=== PATIENT | female | born 1980 | race Two or more races ===

== ENCOUNTER 2020-01-18 15:07 | Outpatient (REF) | payer MEDICAID, SELFPAY | END 2020-01-18 15:08 | disposition home or self-care (01) | LOC: HO.LAB 15:07 | PROVIDERS: Visit Provider Internal Medicine | DX: Z20.828 Contact with and (suspected) exposure to other viral communicable diseases (principal) | CPT/HCPCS: C9803; U0003 ==

== ENCOUNTER 2020-01-27 14:02 | Emergency (ER) | payer MEDICAID, SELFPAY ==
--- NOTE | 2020-01-27 14:51 | XR_ITS ---
EXAMINATION: XR CHEST CLINICAL INFORMATION: Chest pain COMPARISON: Chest x-ray 06/12/2014 TECHNIQUE: Frontal view of the chest was obtained. FINDINGS: Cardiac silhouette is normal in size. Lungs are well aerated. There is no lobar consolidation. No pleural effusion or pneumothorax. Surgical clips in the right upper quadrant suggesting prior cholecystectomy. XR/XR chest 1V IMPRESSION: No acute pulmonary pathology.
[2020-01-27 14:52] VITALS: BP 123/73; PULSE 84; RESP 18; TEMP 36.9; O2SAT 98; BMI 36.6
--- NOTE | 2020-01-27 14:52 | ECG_ITS ---
Test Reason : CHEST PAIN Blood Pressure : / mmHG Vent. Rate : 073 BPM Atrial Rate : 073 BPM P-R Int : 136 ms QRS Dur : 096 ms QT Int : 396 ms P-R-T Axes : 032 060 046 degrees QTc Int : 436 ms Normal sinus rhythm Nonspecific ST abnormality Abnormal ECG When compared with ECG of 15-NOV-2018 20:45, No significant change was found Referred By: Kylie Choudhary Electronically Signed By:LIZA MARCOS MD
--- NOTE | 2020-01-27 14:54 | ED.CHESTPAIN ---
HPI - Chest Pain General Chief Complaint: General Medical Stated Complaint: CHEST PAIN Time Seen by Provider: 01/27/20 14:51 Source: patient and [employer] Mode of arrival: ambulatory Limitations: no limitations History of Present Illness HPI narrative: 39-year-old female presented with left-sided chest pain, pain started 2 days ago, described as dull aching pain localized to the left side of her chest with no radiation, describe it has moderate 5/10, nothing worsening the the pain, nothing improving the pain, pain is associated with shortness of breath. Patient was tested positive for COVID-19 A his ago. Related Data Previous Rx's Medication Instructions Recorded ibuprofen 800 mg PO Q8H PRN #30 tab 01/27/20 Allergies Allergy/AdvReac Type Severity Reaction Status Date / Time No Known Allergies Allergy Unverified 11/30/19 17:20 Review of Systems Review of Systems: All other systems are reviewed and are negative Constitutional: Reports as per HPI and Reports no additional constitutional complaints Eyes: Reports as per HPI and Reports no additional eye complaints Reports system reviewed and no additional complaints, except as documented Cardiovascular: Reports as per HPI and Reports no additional cardiovascular complaints Respiratory: Reports as per HPI and Reports no additional respiratory complaints Gastrointestinal: Reports as per HPI and Reports no additional gastrointestinal complaints Genitourinary: Reports no additional female genitourinary complaints Musculoskeletal: Reports no additional musculoskeletal complaints Skin/Breast: Reports system reviewed and no additional complaints, except as docu Psychiatric: Reports no additional psychiatric complaints Endocrine: Reports no additional endocrine complaints Hematologic/Lymphatic: Reports no additional hematologic/lymphatic complaints Allergic/Immunologic: Reports no additional allergic/immunologic complaints Reports system reviewed and no additional complaints, except as documented and Reports Abnormal speech present [facility] Past Medical History Medical History No known health problems Social History Social History Alcohol intake: never Smoked in Last 30 Days: No Use of substances other than those prescribed or required for medical reasons: No Advance Directives: No Advance Directives Information Provided: Yes Physical Exam Vital Signs: Vital Signs: Last Vital Signs Temp 98.5 F 01/27/20 14:52 Pulse 84 01/27/20 14:52 Resp 18 01/27/20 14:52 BP 123/73 01/27/20 14:52 Pulse Ox 98 01/27/20 14:52 Body Mass Index 36.6 Vital signs have been reviewed as normal and appeared to be correct. Blood pressure normal. Heart rate normal. Respiration rate normal. Temperature normal. Oxygen saturation normal. Appearance: Alert. Oriented X3. No acute distress. Head: Normal external exam. Normocephalic. Atraumatic. No Banks signs noted. No raccoon eyes noted Eyes: PERRLA. EOMI. Conjunctiva and sclera normal. Eyelids normal. ENT: EAC normal. TM's Normal. Pharynx normal. Uvula midline. Moist mucous membranes. No trismus noted. No drooling noted. No muffled voice noted. Neck: Normal inspection. Neck supple. FROM. No adenopathy. Thyroid Normal. No meningeal signs. No neck mass noted. CVS: Normal heart rate and rhythm. Heart sound normal. No murmurs noted. Pulses normal throughout. Respiratory: No respiratory distress. Painless inspiration. Breath sounds normal. No wheezes/rales/rhonchi noted. Chest nontender. No accessory muscle usage noted or decreased air movement noted. Abdomen: Soft and nontender. Bowel sounds normal in all 4 quadrants. No distention noted. No organomegaly noted. No visible injury noted. Back: No CVA tenderness. Full range of motion noted. Skin: Skin warm and dry. Normal skin color. Normal skin turgor. No rashes/lesions/lacerations noted. Extremities: No lower extremity edema. Extremities exhibit normal range of motion. Extremities nontender. Neuro: Oriented X 3. No motor deficit. No sensory deficit. Reflexes normal. MDM - Chest Pain MDM Narrative Medical decision making narrative: Assessment and plan. This is a 39-year-old female with low risk for coronary artery disease, has a normal EKG and a negative troponin with chest pain for more than 2 days, patient recently diagnosed with COVID pneumonia, patient had slight elevation of the D-dimer which is consistent with COVID infection however patient remained her O2 sat/heart rate/respiratory rate within normal, otherwise patient has no risk factor for PE/DVT , PE is very unlikely in this situation therefore I will not expose the patient to unneeded ionized radiation and doing CT of the chest. Will reassess the patient and sent home. Lab Data Attestation: I reviewed the patient's lab results. Result diagrams: 01/27/20 15:07 01/27/20 15:07 Labs: Lab Results 01/27/20 01/27/20 01/27/20 Range/Units 15:07 15:07 15:07 WBC 8.4 (4.8-10.8) X10*3/uL RBC 4.67 (4.20-5.50) X10*6/uL Hgb 13.4 (12.0-16.0) g/dl Hct 41.5 (37-47) % MCV 88.9 (80-98) fL MCH 28.7 (27.0-33.0) pg MCHC 32.3 (31.0-35.0) g/dl RDW 12.4 (11.0-16.0) % Plt Count 268 (160-400) X10*3/uL MPV 9.8 (9.4-12.3) fL Immature Gran % (Auto) 0.2 (0.0-0.4) % Neut % (Auto) 61.4 (45-73) % Lymph % (Auto) 30.1 (20-40) % [place] % (Auto) 6.8 (2-11) % Eos % (Auto) 1.1 (0-4) % Baso % (Auto) 0.4 (0-2) % Lymph # (Auto) 2.5 (1.2-4.9) X10*3/uL [place] # (Auto) 0.6 (0.1-1.2) X10*3/uL Eos # (Auto) 0.1 (0.0-0.4) X10*3/uL Baso # (Auto) 0.0 (0.0-0.2) X10*3/uL Abs Immat Gran (auto) 0.02 (0.00-0.03) X10*3/uL Absolute Neuts (auto) 5.2 (2.0-8.3) X10*3/uL Absolute Nucleated RBC 0.000 (0.0-0.012) X10*3/uL Nucleated RBC % (auto) 0.0 (0.0-0.2) /100WBC D-Dimer 270 NG/ML Sodium 141 (135-145) mmol/L Potassium 3.8 (3.3-5.1) mmol/l Chloride 105 (96-108) mmol/L Carbon Dioxide 29 (22-29) mmol/L Anion Gap 11 L (12-20) BUN 15 (9-16) mg/dL Creatinine 0.73 (0.5-1.4) mg/dL Estim Creat Clear Calc 106.2 Estimated GFR > 60 Random Glucose 77 (60-115) mg/dL Calcium 8.7 (8.4-10.2) mg/dL Troponin I High Sens (<3.5-17.0) ng/L B-Natriuretic Peptide (<100) pg/mL Lipase 20 (8-78) U/L 01/27/20 Range/Units 15:07 WBC (4.8-10.8) X10*3/uL RBC (4.20-5.50) X10*6/uL Hgb (12.0-16.0) g/dl Hct (37-47) % MCV (80-98) fL MCH (27.0-33.0) pg MCHC (31.0-35.0) g/dl RDW (11.0-16.0) % Plt Count (160-400) X10*3/uL MPV (9.4-12.3) fL Immature Gran % (Auto) (0.0-0.4) % Neut % (Auto) (45-73) % Lymph % (Auto) (20-40) % [place] % (Auto) (2-11) % Eos % (Auto) (0-4) % Baso % (Auto) (0-2) % Lymph # (Auto) (1.2-4.9) X10*3/uL [place] # (Auto) (0.1-1.2) X10*3/uL Eos # (Auto) (0.0-0.4) X10*3/uL Baso # (Auto) (0.0-0.2) X10*3/uL Abs Immat Gran (auto) (0.00-0.03) X10*3/uL Absolute Neuts (auto) (2.0-8.3) X10*3/uL Absolute Nucleated RBC (0.0-0.012) X10*3/uL Nucleated RBC % (auto) (0.0-0.2) /100WBC D-Dimer NG/ML Sodium (135-145) mmol/L Potassium (3.3-5.1) mmol/l Chloride (96-108) mmol/L Carbon Dioxide (22-29) mmol/L Anion Gap (12-20) BUN (9-16) mg/dL Creatinine (0.5-1.4) mg/dL Estim Creat Clear Calc Estimated GFR Random Glucose (60-115) mg/dL Calcium (8.4-10.2) mg/dL Troponin I High Sens < 3.5 (<3.5-17.0) ng/L B-Natriuretic Peptide < 10 (<100) pg/mL Lipase (8-78) U/L Imaging Data Chest x-ray: Radiologist's impression: No acute pulmonary pathology. ECG Data ECG #1: Interpretation: Normal sinus rhythm at 73 beats per minutes, normal axis, normal intervals, no ST-T changes. Discharge Plan Discharge Clinical Impression: Chest pain Qualifiers: Chest pain type: unspecified Qualified Code(s): R07.9 - Chest pain, unspecified Patient Disposition: Home, Self-Care Instructions: Chest Pain (ED) Prescriptions: New ibuprofen 800 mg tablet 800 mg PO Q8H PRN (Reason: pain) Qty: 30 RF: 0 Referrals: Physician,Unknown [Primary Care Provider] - 2 days
[2020-01-27] MEDS: 0.9 % Sodium Chloride 500 ML 1000 ML IV (15:08)
[2020-01-27 15:14] LABS: MANUAL DIFF FLAG NO
[2020-01-27 15:16] LABS: Basophils Percent Auto 0.4 % (0-2); Eosinophils Absolute Auto 0.1 X10*3/uL (0.0-0.4); Eosinophils Percent Auto 1.1 % (0-4); Hematocrit 41.5 % (37-47); Hemoglobin 13.4 g/dl (12.0-16.0); Imm Gran Abs Auto 0.02 X10*3/uL (0.00-0.03); Imm Gran Pct Auto 0.2 % (0.0-0.4); Lymphocytes Absolute Auto 2.5 X10*3/uL (1.2-4.9); Lymphocytes Percent Auto 30.1 % (20-40); Mean Corpuscular HGB Conc 32.3 g/dl (31.0-35.0); Mean Corpuscular Hemoglobin 28.7 pg (27.0-33.0); Mean Corpuscular Volume 88.9 fL (80-98); Mean Platelet Volume 9.8 fL (9.4-12.3); Monocytes Absolute Auto 0.6 X10*3/uL (0.1-1.2); Monocytes Percent Auto 6.8 % (2-11); Neutrophils Absolute Auto 5.2 X10*3/uL (2.0-8.3); Neutrophils Percent Auto 61.4 % (45-73); Platelet Count 268 X10*3/uL (160-400); Red Blood Count 4.67 X10*6/uL (4.20-5.50); Red Cell Distribution Width 12.4 % (11.0-16.0); White Blood Count 8.4 X10*3/uL (4.8-10.8)
[2020-01-27 15:37] LABS: Anion Gap 11 (12-20); Blood Urea Nitrogen 15 mg/dL (9-16); Calcium 8.7 mg/dL (8.4-10.2); Carbon Dioxide 29 mmol/L (22-29); Chloride 105 mmol/L (96-108); Creatinine Clr Calc Pharmacy 106.2; Estimated Glomerular Filt Rate > 60; Glucose Random 77 mg/dL (60-115); Lipase 20 U/L (8-78); Potassium 3.8 mmol/l (3.3-5.1); Sodium 141 mmol/L (135-145)
[2020-01-27 15:39] LABS: D Dimer 270 NG/ML
[2020-01-27 15:43] LABS: B Type Natriuretic Peptide < 10 pg/mL (<100); Troponin-I High Sensitivity < 3.5 ng/L (<3.5-17.0)
== END 2020-01-27 16:22 | disposition home or self-care (01) ==
PROVIDERS: Emergency Provider Emergency Medicine
DX: R07.9 Chest pain, unspecified (principal)
CPT/HCPCS: 36415; 71045; 80048; 83690; 83880; 84484; 85025; 85379; 93005; 99284

== ENCOUNTER 2020-12-25 15:36 | Emergency (ER) | payer MEDICAID, SELFPAY ==
[2020-12-25 15:57] VITALS: BP 106/74; PULSE 81; RESP 18; TEMP 36.9; O2SAT 99; BMI 38.9
--- NOTE | 2020-12-25 16:54 | ED.ABDPAIN ---
HPI - Abdominal Pain General Chief Complaint: Abdominal Pain Stated Complaint: abd pain Time Seen by Provider: 12/25/20 16:54 Source: family Mode of arrival: ambulatory Limitations: language barrier History of Present Illness HPI narrative: abdominal pain started this morning. Epigastric with diarrhea, no vomiting no fever. Patient with diarrhea 10 times all water. Patient denies food poisoning, sick exposures. MD elicited complaint: abdominal pain Pain Consistency: intermittent Location: epigastric Severity: moderate Quality: cramping Associated symptoms: diarrhea Related Data Previous Rx's Medication Instructions Recorded ibuprofen 800 mg tablet 800 mg PO Q8H PRN #30 tab 01/27/20 aodafknlf-zeymco-pkeozqja-scop 5 ml PO BID PRN #480 ml 12/25/20 16.2 mg-0.1037 mg-0.0194 mg/5 mL elixir () Allergies Allergy/AdvReac Type Severity Reaction Status Date / Time No Known Allergies Allergy Verified 12/25/20 15:57 Review of Systems Constitutional: Reports no additional constitutional complaints Eyes: Reports no additional eye complaints Denies dizziness Cardiovascular: Reports no additional cardiovascular complaints Respiratory: Reports as per HPI Gastrointestinal: Reports no additional gastrointestinal complaints Genitourinary: Reports no additional female genitourinary complaints Musculoskeletal: Reports no additional musculoskeletal complaints Skin/Breast: Denies rash Reports system reviewed and no additional complaints, except as documented, Denies dizziness and Denies Sensory deficit (Neuro) Psychiatric: Denies anxiety Physical Exam Vital Signs: Vital Signs: Last Vital Signs Temp 98.5 F 12/25/20 15:57 Pulse 81 12/25/20 15:57 Resp 18 12/25/20 15:57 BP 106/74 12/25/20 15:57 Pulse Ox 99 12/25/20 15:57 Body Mass Index 38.9 Const: General: healthy appearing Nutritional Appearance: average body habitus Orientation/consciousness: oriented to person and patient oriented x3 Limitations: no limitations HENMT: Head: Yes normal to inspection Ears: external ears normal General nose exam: Normal external nose present Mouth: Normal oral and palatal mucosa present and oropharynx normal Throat: Yes posterior oropharynx normal Eyes: General: appearance normal, both eyes and all related structures Neck: Other: supple Neck: Yes normal visual inspection Chest: Chest palpation & inspection: normal inspection of the chest Resp: Auscultation: clear to auscultation bilaterally Cardio: Jugular venous distension: no JVD Rate: regular rate Rhythm: regular rhythm Heart sounds: S1 normal heart sound present and S2 normal heart sound present GI: Other: abdomen is soft but diffusely tender Auscultation: normal bowel sounds : General: Yes no CVA tenderness Back/Spine/Pelvis: Back: no CVA tenderness Skin: General skin exam: no rashes or lesions noted Neuro: General: oriented to person and patient oriented x3 Cranial nerves: Yes CN's II-XII intact bilaterally Motor exam (neuro): 5/5 motor strength present throughout Sensory Exam: No Sensory deficit (Neuro) Extrem: General: Yes normal to inspection Psych: Appearance: grossly normal Course Reevaluation(s) Reevaluation #1: despite elevated WBC abdomen is soft and nonfocal. Improved with fluids and . Impression is diarrhea and enteritis. Will dc on . Time: 18:46 MDM - Abdominal Pain Lab Data Result diagrams: 12/25/20 17:46 12/25/20 17:46 Labs: Lab Results 12/25/20 12/25/20 Range/Units 17:46 17:46 WBC 13.7 H (4.8-10.8) X10*3/uL RBC 5.01 (4.20-5.50) X10*6/uL Hgb 14.5 (12.0-16.0) g/dl Hct 44.2 (37-47) % MCV 88.2 (80-98) fL MCH 28.9 (27.0-33.0) pg MCHC 32.8 (31.0-35.0) g/dl RDW 12.4 (11.0-16.0) % Plt Count 316 (160-400) X10*3/uL MPV 9.6 (9.4-12.3) fL Immature Gran % (Auto) 0.4 (0.0-0.4) % Neut % (Auto) 72.1 (45-73) % Lymph % (Auto) 21.1 (20-40) % [place] % (Auto) 5.4 (2-11) % Eos % (Auto) 0.7 (0-4) % Baso % (Auto) 0.3 (0-2) % Lymph # (Auto) 2.9 (1.2-4.9) X10*3/uL [place] # (Auto) 0.7 (0.1-1.2) X10*3/uL Eos # (Auto) 0.1 (0.0-0.4) X10*3/uL Baso # (Auto) 0.0 (0.0-0.2) X10*3/uL Abs Immat Gran (auto) 0.06 H (0.00-0.03) X10*3/uL Absolute Neuts (auto) 9.9 H (2.0-8.3) X10*3/uL Absolute Nucleated RBC 0.000 (0.0-0.012) X10*3/uL Nucleated RBC % (auto) 0.0 (0.0-0.2) /100WBC Sodium 137 (135-145) mmol/L Potassium 4.4 (3.3-5.1) mmol/L Chloride 104 (96-108) mmol/L Carbon Dioxide 27 (22-29) mmol/L Anion Gap 10 L (12-20) BUN 8 L (9-16) mg/dL Creatinine 0.70 (0.5-1.4) mg/dL Estim Creat Clear Calc 113.5 Estimated GFR > 60 Random Glucose 80 (60-115) mg/dL Calcium 9.7 D (8.4-10.2) mg/dL Total Bilirubin 0.3 (0.0-1.0) mg/dL Direct Bilirubin 0.2 (0.0-0.5) mg/dL AST 16 (5-31) U/L ALT 13 (0-31) U/L Alkaline Phosphatase 117 (39-117) U/L Total Protein 8.2 H (6.5-8.0) g/dL Albumin 4.3 (3.5-5.0) g/dL Lipase 11 (8-78) U/L Discharge Plan Discharge Clinical Impression: Enteritis Diarrhea Qualifiers: Diarrhea type: unspecified type Qualified Code(s): R19.7 - Diarrhea, unspecified Patient Disposition: Home, Self-Care Instructions: Acute Diarrhea (ED), Enteritis (ED) Prescriptions: New yeqwumgza-mpdbed-ofqczvzz-scop [] 16.2-0.1037 -0.0194 mg/5 mL elixir 5 ml PO BID PRN (Reason: spasms) Qty: 480 RF: 0 No Action ibuprofen 800 mg tablet 800 mg PO Q8H PRN (Reason: pain) Qty: 30 RF: 0 Referrals: [place],[facility] [Primary Care Provider] - 5 days REPLACED BY [facility] Past Medical History Medical History No known health problems Social History Social History Alcohol intake: never Advance Directives: No Advance Directives Information Provided: Yes Patient : No
[2020-12-25] MEDS: PHENobarb/Hyoscy/Atropine/Scop 10 ML ELIXIR PO (17:50)
[2020-12-25] MEDS: 0.9 % Sodium Chloride 1,000 ML 999 ML IVCONT (17:51)
[2020-12-25 17:52] LABS: MANUAL DIFF FLAG NO
[2020-12-25 17:54] LABS: Basophils Percent Auto 0.3 % (0-2); Eosinophils Absolute Auto 0.1 X10*3/uL (0.0-0.4); Eosinophils Percent Auto 0.7 % (0-4); Hematocrit 44.2 % (37-47); Hemoglobin 14.5 g/dl (12.0-16.0); Imm Gran Abs Auto 0.06 X10*3/uL (0.00-0.03); Imm Gran Pct Auto 0.4 % (0.0-0.4); Lymphocytes Absolute Auto 2.9 X10*3/uL (1.2-4.9); Lymphocytes Percent Auto 21.1 % (20-40); Mean Corpuscular HGB Conc 32.8 g/dl (31.0-35.0); Mean Corpuscular Hemoglobin 28.9 pg (27.0-33.0); Mean Corpuscular Volume 88.2 fL (80-98); Mean Platelet Volume 9.6 fL (9.4-12.3); Monocytes Absolute Auto 0.7 X10*3/uL (0.1-1.2); Monocytes Percent Auto 5.4 % (2-11); Neutrophils Absolute Auto 9.9 X10*3/uL (2.0-8.3); Neutrophils Percent Auto 72.1 % (45-73); Platelet Count 316 X10*3/uL (160-400); Red Blood Count 5.01 X10*6/uL (4.20-5.50); Red Cell Distribution Width 12.4 % (11.0-16.0); White Blood Count 13.7 X10*3/uL (4.8-10.8)
[2020-12-25 18:09] LABS: Alanine Aminotransferase 13 U/L (0-31); Albumin Level 4.3 g/dL (3.5-5.0); Alkaline Phosphatase 117 U/L (39-117); Anion Gap 10 (12-20); Aspartate Amino Transferase 16 U/L (5-31); Bilirubin Direct 0.2 mg/dL (0.0-0.5); Bilirubin Total 0.3 mg/dL (0.0-1.0); Blood Urea Nitrogen 8 mg/dL (9-16); Calcium 9.7 mg/dL (8.4-10.2); Carbon Dioxide 27 mmol/L (22-29); Chloride 104 mmol/L (96-108); Creatinine Clr Calc Pharmacy 113.5; Estimated Glomerular Filt Rate > 60; Glucose Random 80 mg/dL (60-115); Lipase 11 U/L (8-78); Potassium 4.4 mmol/L (3.3-5.1); Sodium 137 mmol/L (135-145); Total Protein 8.2 g/dL (6.5-8.0)
== END 2020-12-25 19:08 | disposition home or self-care (01) ==
PROVIDERS: Emergency Provider Emergency Medicine
DX: K52.9 Noninfective gastroenteritis and colitis, unspecified (principal)
CPT/HCPCS: 36415; 80048; 80076; 83690; 85025; 96360; 96361; 99283; 99284

== ENCOUNTER 2021-10-23 15:44 | Outpatient (REF) | payer MEDICAID, SELFPAY ==
--- NOTE | ~2021-10-23 | XR_ITS ---
EXAMINATION: XR HAND, LEFT CLINICAL INFORMATION: Status post injury. Pain in left fingers. COMPARISON: None TECHNIQUE: PA, lateral, and oblique views of the left hand. FINDINGS: There is mild loss of PIP and DIP joint spaces of all digits with mild periarticular spurring at the DIP joint of the 5th digit. The MCP, CMCP and intercarpal joint spaces are maintained normal. No visible acute fracture or dislocation. The soft tissues are normal. 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
== END 2021-10-23 15:45 | disposition home or self-care (01) ==
LOC: HO.XRAY 15:44
PROVIDERS: PCP Nurse Practitioner; Visit Provider Nurse Practitioner
DX: M79.645 Pain in left finger(s) (principal)
CPT/HCPCS: 73130

== ENCOUNTER 2022-04-04 17:40 | Emergency (ER) | payer MEDICAID, SELFPAY ==
--- NOTE | ~2022-04-04 | XR_ITS ---
EXAMINATION: XR CHEST CLINICAL INFORMATION: Chest pain COMPARISON: 01/27/2020 TECHNIQUE: Frontal view of the chest was obtained. FINDINGS: No significant abnormality is noted involving the heart, lungs, mediastinum, bony thorax or soft tissues. XR/XR chest 1V IMPRESSION: Unremarkable examination.
[2022-04-04 18:15] VITALS: BP 122/65; PULSE 77; RESP 18; TEMP 36.9; O2SAT 100; BMI 38.4
--- NOTE | 2022-04-04 18:20 | ECG_ITS ---
Test Reason : COVID POSITIVE Blood Pressure : / mmHG Vent. Rate : 077 BPM Atrial Rate : 077 BPM P-R Int : 128 ms QRS Dur : 086 ms QT Int : 388 ms P-R-T Axes : 068 062 057 degrees QTc Int : 439 ms Normal sinus rhythm with sinus arrhythmia Normal ECG When compared with ECG of 27-JAN-2020 15:26, No significant change was found Referred By: Generic ED Physician Electronically Signed By:CAMPOS SIMS MD
[2022-04-04 20:24] LABS: Influenza A PCR NEGATIVE (Negative); Influenza B PCR NEGATIVE (Negative); Resp Syncy Virus RNA Qual PCR NEGATIVE (Negative); SARS COV2 PCR INHOUSE POSITIVE (Negative)
--- NOTE | 2022-04-04 20:31 | ED.GENADULT ---
HPI - General Adult General Chief complaint: Upper Respiratory Symptoms Stated complaint: chest pain.sore throat Time Seen by Provider: 04/04/22 20:18 Source: patient Mode of arrival: ambulatory Limitations: no limitations History of Present Illness HPI narrative: Patient already been vaccinated against COVID comes up for 2 days of cold symptoms body aches low-grade fever check COVID at home which was positive on arrival patient saturating 100% room air afebrile Related Data Previous Rx's Medication Instructions Recorded ibuprofen 800 mg tablet 800 mg PO Q8H PRN pain #30 tabs 01/27/20 pzystiyaq-tcbeod-dqgwjfwq-scop 5 ml PO BID PRN spasms #480 mL 12/25/20 16.2 mg-0.1037 mg-0.0194 mg/5 mL elixir () benzonatate 200 mg capsule 200 mg PO TID PRN cough #30 caps 04/04/22 ibuprofen 600 mg tablet 600 mg PO Q6H PRN fever or pain 04/04/22 #30 tabs Allergies Allergy/AdvReac Type Severity Reaction Status Date / Time No Known Allergies Allergy Verified 12/25/20 15:57 Review of Systems Review of Systems: Yes all other systems are reviewed and are negative PMFSH Past Medical History Medical History No known health problems Social History Social History Alcohol intake: never Advance Directives: No Advance Directives Information Provided: No Physical Exam ED Vital Signs: Vital Signs - 24 hr 04/04/22 18:15 Temperature 98.4 F Pulse Rate 77 Respiratory Rate 18 Blood Pressure 122/65 Pulse Oximetry 100 Oxygen Delivery Method Room Air BMI result Body Mass Index 38.4 Appearance: Alert. Oriented X3. No acute distress. ENT: Pharynx normal. Oral Mucosa moist Neck: Normal inspection. Neck supple. CVS: Normal heart rate and rhythm. Pulses normal. Respiratory: No respiratory distress. Equal air entry bilateral, no wheezing/rales/rhonchi Skin: Skin warm and dry. Normal skin color. Normal skin turgor. Extremities: No lower extremity edema. Neuro: Oriented X 3. Medications Administered Discontinued Medications Generic Name Dose Route Start Last Admin Trade Name Freq PRN Reason Stop Dose Admin Benzonatate 200 mg 04/04/22 20:44 04/04/22 21:07 Benzonatate 100 Mg Capsule PO 04/04/22 20:45 200 mg ONCE ONE Administration Ibuprofen 600 mg 04/04/22 20:44 04/04/22 21:07 Ibuprofen 600 Mg Tablet PO 04/04/22 20:45 600 mg ONCE ONE Administration Medical Decision Making Medical Decision Making MDM Narrative: Patient with COVID positive chest x-ray negative saturating 100% on room air discharged home on tessalon Lab Data [facility] Lab Attestation statement: I reviewed the patient's lab results. Labs: Lab Results 04/04/22 Range/Units 19:29 Influenza Type A (PCR) NEGATIVE (Negative) Influenza Type B (PCR) NEGATIVE (Negative) RSV RNA Qual (PCR) NEGATIVE (Negative) SARS-CoV-2 RNA (RT-PCR) POSITIVE A (Negative) Discharge Plan Discharge Clinical Impression: COVID-19 Patient Disposition: Home, Self-Care Instructions: COVID-19 (Coronavirus Disease 2019) (ED) Additional Instructions: Keep social distancing Cough drops as prescribed Ibuprofen for pain Follow with PCP if not better Prescriptions: New benzonatate 200 mg capsule 200 mg PO TID PRN (Reason: cough) Qty: 30 0RF ibuprofen 600 mg tablet 600 mg PO Q6H PRN (Reason: fever or pain) Qty: 30 0RF No Action ibuprofen 800 mg tablet 800 mg PO Q8H PRN (Reason: pain) Qty: 30 0RF xoezcrses-foiqvu-afwfgtwq-scop [] 16.2-0.1037 -0.0194 mg/5 mL elixir 5 ml PO BID PRN (Reason: spasms) Qty: 480 0RF Interventions: ED Discharge Assessment Last Done: 04/04/22 21:08 Discharge Date/Time: 04/04/22 21:09
[2022-04-04] MEDS: Benzonatate 100 MG CAPSULE 200 MG PO (21:07)
[2022-04-04] MEDS: Ibuprofen 600 MG TABLET PO (21:07)
== END 2022-04-04 21:09 | disposition home or self-care (01) ==
PROVIDERS: Emergency Provider Internal Medicine
DX: U07.1 COVID-19 (principal)
CPT/HCPCS: 0241U; 71045; 93005; 99283

== ENCOUNTER 2022-11-27 12:04 | Outpatient (REF) | payer MEDICAID, SELFPAY ==
[2022-11-27 15:58] LABS: Syphilis Screen Nonreactive (Nonreactive)
[2022-11-27 16:14] LABS: Alanine Aminotransferase 11 U/L (0-31); Albumin Level 3.9 g/dL (3.5-5.0); Alkaline Phosphatase 95 U/L (39-117); Aspartate Amino Transferase 14 U/L (5-31); Bilirubin Direct 0.1 mg/dL (0.0-0.5); Bilirubin Total 0.3 mg/dL (0.0-1.0); Total Protein 7.2 g/dL (6.5-8.0)
[2022-11-28 04:06] LABS: HIV AB/AG Nonreactive (Nonreactive); HIV Num 1 0.08 S/CO (0.00-0.99)
[2022-11-28 05:40] LABS: CT PCR NOT DETECTED (Not Detect.); NG PCR NOT DETECTED (Not Detect.)
== END 2022-11-27 12:05 | disposition home or self-care (01) ==
LOC: HO.HHCL 12:04
PROVIDERS: Visit Provider Registered Nurse
DX: Z11.4 Encounter for screening for human immunodeficiency virus [HIV] (principal); Z11.3 Encounter for screening for infections with a predominantly sexual mode of transmission
CPT/HCPCS: 0353U; 80076; 86780; 87389

== ENCOUNTER 2023-03-03 16:00 | Outpatient (REF) | payer MEDICAID, SELFPAY ==
--- NOTE | ~2023-03-03 | CT_ITS ---
EXAMINATION: CT abdomen pelvis wo IV con CLINICAL INFORMATION: Reason for Exam acute left flank pain COMPARISON: No prior CT available for comparison. TECHNIQUE: Multidetector volumetric imaging was performed from the superior aspect of the liver through the pubic symphysis , noncontrast CT Sagittal and coronal reformatted images were obtained on the technologist's workstation. This CT examination was performed using dose optimization techniques as appropriate, variously including the following: *Automated exposure control *Adjustment of mA and/or kV according to patient size (this includes techniques or standardized protocols for targeted exams where dose is matched to indication/reason for exam; i.e. extremities or head) *Use of iterative reconstruction technique DLP: 556 mGy-cm FINDINGS: LOWER THORAX: Included lung bases are clear. HEPATOBILIARY: No focal hepatic lesions. No biliary ductal dilatation. GALLBLADDER: Gallbladder has been removed. SPLEEN: Spleen is normal in size. PANCREAS: No focal mass or ductal dilatation. STOMACH AND GASTROINTESTINAL TRACT: Stomach distended with food contents. There is no bowel distention or thickening. Appendix not visualized obscured by crowding of bowel loops no CT evidence of secondary signs to suggest appendicitis. ADRENALS: No adrenal nodules. KIDNEYS/URETERS: No hydronephrosis, stones or solid mass lesions. URINARY BLADDER: Urinary bladder decompressed. PELVIC VISCERA: Complex left adnexal soft tissue structure 4 x 4 centimeters possibly of left ovarian origin, this may require correlation with follow-up pelvic ultrasound. Pelvis otherwise unremarkable. PERITONEUM: No free air or fluid. LYMPH NODES: No lymphadenopathy. VASCULAR:Abdominal aorta normal in size, no aneurysm found. BONES, ABDOMINAL WALL AND SOFT TISSUES: Age-appropriate changes of the spine and skeletal system, no destructive osteolytic or osteosclerotic bone lesion found CT/CT abdomen pelvis wo IV con IMPRESSION: * No CT evidence of kidney stones or hydronephrosis. * Complex left adnexal soft tissue structure 4 x 4 centimeters possibly of left ovarian origin, not well evaluated on this noncontrast CT abdomen, possibly complex left adnexal mass or complex cyst, this may require correlation with follow-up pelvic ultrasound.
== END 2023-03-03 16:01 | disposition home or self-care (01) ==
LOC: HO.CT 16:00
PROVIDERS: Visit Provider Emergency Medicine
DX: R10.9 Unspecified abdominal pain (principal)
CPT/HCPCS: 74176

== ENCOUNTER 2023-03-05 14:29 | Outpatient (REF) | payer MEDICAID, SELFPAY ==
--- NOTE | ~2023-03-05 | US_ITS ---
EXAMINATION: US PELVIS COMPLETE CLINICAL INFORMATION: Left adnexal mass on CT COMPARISON: CT abdomen pelvis 02/01/2023 TECHNIQUE: Transabdominal and transvaginal imaging was performed. FINDINGS: Uterus is retroverted in position. Trilaminar appearance of the endometrium measuring 1.8 cm in thickness. A 0.9 cm intramural myoma in the posterior body of the uterus and a 4.2 cm transmural myoma in the left posterior body of the uterus. The right ovary is unremarkable in appearance and measures 2.7 x 1.6 x 2.0 cm for a volume of 4.5 mL. The left measures 4.8 x 3.8 x 2.5 cm for a volume of 47.8 mL. The left ovary is suboptimally evaluated as is only identified on the transabdominal images and is remarkable for a 4.3 x 2.8 x 4.1 cm avascular partially cystic lesion with some suspected lacelike reticulation and peripheral avascular solid components possibly reflecting retracting clot in a hemorrhagic cyst although difficult to say with certainty. There is trace simple physiologic volume pelvic free fluid. US/US pelvic and transvaginal IMPRESSION: * The left ovary is suboptimally evaluated as is only identified on the transabdominal images and is remarkable for a 4.3 cm avascular partially cystic lesion with some suspected lacelike reticulation and peripheral avascular solid components possibly reflecting retracting clot in a hemorrhagic cyst although difficult to say with certainty. Recommend 6-12 week follow-up pelvic ultrasound to assess for resolution and if findings do not resolve, an MR pelvis with contrast could be obtained for further evaluation. * A 0.9 cm intramural myoma in the posterior body of the uterus and a 4.2 cm transmural myoma in the left posterior body of the uterus.
== END 2023-03-05 14:30 | disposition home or self-care (01) ==
LOC: HO.US 14:29
PROVIDERS: Visit Provider Emergency Medicine
DX: R10.9 Unspecified abdominal pain (principal); N83.202 Unspecified ovarian cyst, left side
CPT/HCPCS: 76830; 76856

== ENCOUNTER 2023-08-31 12:01 | Emergency (ER) | payer MEDICAID, SELFPAY ==
--- NOTE | ~2023-08-31 | US_ITS ---
EXAMINATION: ULTRASOUND PELVIC, COMPLETE CLINICAL INFORMATION: pain. History of hemorrhagic cysts. Torsion? COMPARISON: CT abdomen pelvis August 31, 2023. Ultrasound March 05, 2023 TECHNIQUE: Transvaginal: Used to better visualize pelvic structures Transabdominal: Not adequate for visualization Spectral Doppler and color Doppler exam was utilized. LMP: 08/10/2023 FINDINGS: UTERUS: There is is anteverted and retroflexed. The uterus overall measures 11.4 x 4.4 x 6 cm. Endometrial thickness 1.5 cm. Uterine fibroids: 1. Anterior distal body myometrium 1.1 x 0.7 x 0.8 cm. This is unchanged since prior study. 2. Left side mid body myometrial 3.5 x 3.5 x 4.1 cm. This is unchanged since prior study. ADNEXA: Ovarian vascularity:Doppler demonstrates both arterial and venous vascular flow in the right and left ovary. No evidence of ovarian torsion. Right Ovary: Right ovary measures 2.8 x 2 x 2.3 cm. Volume 6.7 mL. Dominant follicle in the right ovary measuring 1.3 cm. Left Ovary: 3.2 x 2.6 x 3 cm. Volume 13.1 mL. Complex cyst in the left ovary measuring 2.2 x 1.8 x 2.7 cm. On the prior pelvic ultrasound exam of March 05, 2023 the left ovary measuring 4.8 x 3.8 x 2.5 cm, volume 47.8 mL. There was a 4.3 cm partially cystic lesion in the left ovary on the prior exam. Cul-de-sac: Small to moderate volume of complex fluid in the cul-de-sac. US/US pelvic ovarian doppler IMPRESSION: 1. Complex cyst in left ovary measuring 2.7 cm. On the prior ultrasound exam of March 05, 2023 the left ovary cyst measuring 4.3 cm. 2. Small to moderate volume of complex fluid in the cul-de-sac. 3. Uterine fibroids.
--- NOTE | ~2023-08-31 | US_ITS ---
EXAMINATION: ULTRASOUND PELVIC, COMPLETE CLINICAL INFORMATION: pain. History of hemorrhagic cysts. Torsion? COMPARISON: CT abdomen pelvis August 31, 2023. Ultrasound March 05, 2023 TECHNIQUE: Transvaginal: Used to better visualize pelvic structures Transabdominal: Not adequate for visualization Spectral Doppler and color Doppler exam was utilized. LMP: 08/10/2023 FINDINGS: UTERUS: There is is anteverted and retroflexed. The uterus overall measures 11.4 x 4.4 x 6 cm. Endometrial thickness 1.5 cm. Uterine fibroids: 1. Anterior distal body myometrium 1.1 x 0.7 x 0.8 cm. This is unchanged since prior study. 2. Left side mid body myometrial 3.5 x 3.5 x 4.1 cm. This is unchanged since prior study. ADNEXA: Ovarian vascularity:Doppler demonstrates both arterial and venous vascular flow in the right and left ovary. No evidence of ovarian torsion. Right Ovary: Right ovary measures 2.8 x 2 x 2.3 cm. Volume 6.7 mL. Dominant follicle in the right ovary measuring 1.3 cm. Left Ovary: 3.2 x 2.6 x 3 cm. Volume 13.1 mL. Complex cyst in the left ovary measuring 2.2 x 1.8 x 2.7 cm. On the prior pelvic ultrasound exam of March 05, 2023 the left ovary measuring 4.8 x 3.8 x 2.5 cm, volume 47.8 mL. There was a 4.3 cm partially cystic lesion in the left ovary on the prior exam. Cul-de-sac: Small to moderate volume of complex fluid in the cul-de-sac. US/US pelvic and transvaginal IMPRESSION: 1. Complex cyst in left ovary measuring 2.7 cm. On the prior ultrasound exam of March 05, 2023 the left ovary cyst measuring 4.3 cm. 2. Small to moderate volume of complex fluid in the cul-de-sac. 3. Uterine fibroids.
--- NOTE | ~2023-08-31 | CT_ITS ---
EXAMINATION: CT ABDOMEN AND PELVIS WITHOUT CONTRAST CLINICAL INFORMATION: Left flank left lower quadrant pain. Kidney stone COMPARISON: CT abdomen pelvis March 03, 2023. Pelvic ultrasound August 31, 2023, March 05, 2023 TECHNIQUE: Multidetector volumetric imaging was performed from the superior aspect of the liver through the pubic symphysis. Sagittal and coronal reformatted images were obtained on the technologist's workstation. This CT examination was performed using dose optimization techniques as appropriate, variously including the following: *Automated exposure control *Adjustment of mA and/or kV according to patient size (this includes techniques or standardized protocols for targeted exams where dose is matched to indication/reason for exam; i.e. extremities or head) *Use of iterative reconstruction technique DLP: 726 mGy-cm FINDINGS: LUNG BASES: The visualized lung bases are unremarkable. LIVER, GALLBLADDER, AND BILIARY TREE: The liver is normal in size, shape, and attenuation. No focal hepatic lesion or biliary ductal dilatation is present. Status post cholecystectomy PANCREAS: Unremarkable. SPLEEN: Unremarkable. ADRENAL GLANDS: Unremarkable. KIDNEYS AND URETERS: The kidneys are normal in size, shape, and attenuation. No hydronephrosis, hydroureter, or calculi seen. No perinephric stranding. BLADDER: Unremarkable. GASTROINTESTINAL TRACT: The small and large bowel are unremarkable. The appendix is unremarkable. ABDOMINAL WALL: No significant hernia is appreciated. LYMPH NODES: Normal. VASCULAR: Unremarkable. PELVIC VISCERA: Uterus is anteverted. Left ovary is larger than the left. Left ovary measures 3 x 3.8 x 3.3 cm. The right ovary measures approximately 2.5 x 2.2 cm. The size of the left ovary is smaller today than the prior exams. On the prior ultrasound exam of March 05, 2023 the left ovary measured 4.8 x 3.8 x 2.5 cm. OSSEOUS STRUCTURES: Unremarkable. CT/CT abdomen pelvis wo IV con IMPRESSION: No acute abnormality CT scan abdomen pelvis. Fleischner guidelines were followed.
[2023-08-31 12:37] VITALS: BP 125/75; PULSE 85; RESP 18; TEMP 36.6; O2SAT 99; BMI 39.0
--- NOTE | 2023-08-31 12:41 | ED.GENADULT ---
HPI - General Adult General Chief complaint: Abdominal Pain Stated complaint: Lower L quadrant pain Time Seen by Provider: 08/31/23 16:11 Source: patient and pediatric immunologist Mode of arrival: ambulatory History of Present Illness ED Provider: Dr Ramirez [facility] narrative: 42-year-old female who presents with 5 days of worsening left lower abdominal/pelvic pain without associated fever, chills, denies any urinary symptoms/nausea/vomiting. Related Data Previous Rx's ?Medication ?Instructions ?Recorded tgluxsmew-vxsfbv-drqayaae-scop 5 ml PO BID PRN spasms #480 mL 12/25/20 16.2 mg-0.1037 mg-0.0194 mg/5 mL elixir () benzonatate 200 mg capsule 200 mg PO TID PRN cough #30 caps 04/04/22 ketorolac 10 mg tablet 10 mg PO Q6H PRN pain #20 tabs 08/31/23 Allergies Allergy/AdvReac Type Severity Reaction Status Date / Time No Known Allergies Allergy Verified 08/31/23 12:38 Review of Systems Review of Systems: Pertinent positives and negatives as stated in [facility] Past Medical History Source: nursing notes reviewed Medical History No known health problems Social History Social History Alcohol intake: never Smoked in Last 30 Days: No Advance Directives: No Advance Directives Information Provided: Yes Do you have a plan to hurt others: No Plan Patient : No Physical Exam ED Vital Signs: Vital Signs - 24 hr 08/31/23 12:37 08/31/23 16:16 08/31/23 18:03 Temperature 97.8 F 98.4 F 98.5 F Pulse Rate 85 84 71 Respiratory Rate 18 18 18 Blood Pressure 125/75 143/89 H 115/71 Pulse Oximetry 99 100 99 Oxygen Delivery Method Room Air Room Air Room Air BMI result Body Mass Index 39.0 VITAL SIGNS: Reviewed. GENERAL: Elevated BMI, Well developed, well nourished, in moderate distress. HEAD: Normocephalic/atraumatic EYES: PERRLA, EOMI EARS: Ext canals without abnormality NOSE: Nares patent bilateral OROPHARYNX: no oral lesions noted, posterior pharynx clear NECK: Supple, no adenopathy LUNGS: Normal breath sounds. No adventitious sounds or accessory muscle use. SpO2<100> CARDIOVASCULAR: Regular rate and rhythm without noted murmurs ABDOMEN: Soft, left lower discomfort on palpation, non-distended with bowel sounds. MUSCULOSKELETAL: No tenderness, deformities, or effusions noted on gross inspection. EXTREMITIES: No cyanosis, clubbing or edema. SKIN: Inspection of the skin reveals no rashes NEUROLOGIC: Alert and oriented x 4. Strength and sensation to light touch were grossly intact x 4. Course Course Course Narrative: RME; done by CANDI Elizalde. Patient presents to ED left flank left lower quadrant pain since yesterday with a any trauma. Patient has history of hemorrhagic cyst. Patient has had tubal ligation. Labs UA ordered. Dry CT scan ordered and ultrasound to rule out torsion Medications Administered Discontinued Medications Generic Name Dose Route Start Last Admin Trade Name Freq PRN Reason Stop Dose Admin Acetaminophen 975 mg 08/31/23 16:58 08/31/23 18:01 Acetaminophen 325 Mg Tablet PO 08/31/23 16:59 975 mg ONCE ONE Administration Ketorolac Tromethamine 15 mg 08/31/23 16:58 08/31/23 17:26 Ketorolac Tromethamine 15 Mg/Ml Vial IM 08/31/23 16:59 15 mg ONCE ONE Administration Medical Decision Making Medical Decision Making [facility] Narrative: 42-year-old female with history and clinical presentation, DDX: Renal colic, diverticulitis, urinary tract infection, ovarian torsion, ectopic I reviewed all investigations and hematologic indices demonstrate a noninfectious leukocytosis, no anemia or thrombocytopenia. Coagulation studies are within normal limits. Chemistry indices do not demonstrate any MAYRA/electrolyte or liver enzyme derangements and beta hCG is undetectable. Urinalysis is negative for UTI. CT scan negative for acute findings, ultrasound does demonstrate heterogeneous pelvic fluid with the absence of previously identified cyst in 02/2023 suggesting likely cystic rupture. Patient provided with combination analgesics, Tylenol/ibuprofen. 1716: I discussed the case with Dr. Juliane izquierdo who recommends repeat H&H and STI evaluation and will follow-up with the patient in the outpatient setting. Repeat H&H although somewhat decreased is stable, patient has no evidence of hypotension or tachycardia. STI testing unable to be performed prior to discharge. Differential Diagnosis Differential Diagnoses: The differential diagnosis associated with the presentation includes Please see the discussion above Admission/Observation Consideration of admission/observation: Escalation of care including admission/observation considered Please see the discussion above Consult Healthcare Provider Management of the patient was discussed with: Costume Director Please see the discussion above Lab Data MDM Lab Attestation statement: I reviewed the patient's lab results. Please see the discussion above 08/31/23 17:50 08/31/23 12:54 Labs: Lab Results 08/31/23 08/31/23 Range/Units 12:54 17:50 WBC 11.6 H (4.8-10.8) X10*3/uL RBC 4.97 (4.20-5.50) X10*6/uL Hgb 14.6 13.7 (12.0-16.0) g/dl Hct 43.8 40.5 (37.0-47.0) % MCV 88.1 (80.0-98.0) fL MCH 29.4 (27.0-33.0) pg MCHC 33.3 (31.0-35.0) g/dl RDW 13.0 (11.0-16.0) % Plt Count 273 (160-400) X10*3/uL MPV 9.5 (9.4-12.3) fL Immature Gran % (Auto) 0.3 (0.0-0.4) % Neut % (Auto) 68.0 (45-73) % Lymph % (Auto) 21.8 (20-40) % [place] % (Auto) 8.3 (2-11) % Eos % (Auto) 1.2 (0-4) % Baso % (Auto) 0.4 (0-2) % Lymph # (Auto) 2.5 (1.2-4.9) X10*3/uL [place] # (Auto) 1.0 (0.1-1.2) X10*3/uL Eos # (Auto) 0.1 (0.0-0.4) X10*3/uL Baso # (Auto) 0.1 (0.0-0.2) X10*3/uL Abs Immat Gran (auto) 0.04 H (0.00-0.03) X10*3/uL Absolute Neuts (auto) 7.9 (2.0-8.3) x10*3/uL Absolute Nucleated RBC 0.000 (0.0-0.012) X10*3/uL Nucleated RBC % (auto) 0.0 (0.0-0.2) /100WBC PT 12.1 (11.1-13.3) SEC INR 1.0 (0.9-1.1) APTT 31.1 (26.0-36.8) SEC Sodium 140 (135-145) mmol/L Potassium 3.7 (3.3-5.1) mmol/L Chloride 106 (96-108) mmol/L Carbon Dioxide 28 (22-29) mmol/L Anion Gap 10 L (12-20) BUN 13 (9-16) mg/dL Creatinine 0.76 (0.5-1.4) mg/dL Estim Creat Clear Calc 102.4 Estimated GFR > 60 Random Glucose 86 (60-115) mg/dL Calcium 10.1 (8.4-10.2) mg/dL Total Bilirubin 0.3 (0.0-1.0) mg/dL AST 17 (5-31) U/L ALT 15 (0-31) U/L Alkaline Phosphatase 106 (39-117) U/L Total Protein 8.6 H (6.5-8.0) g/dL Albumin 4.3 (3.5-5.0) g/dL Beta HCG, Quant < 2 mIU/mL Urine Color Yellow Urine Appearance Clear Urine pH 5.0 (5.0-9.0) Ur Specific [place] 1.025 (1.005-1.025) Urine Protein 30 (1+) H (Neg-Trace) mg/dL Urine Glucose (UA) Negative (Negative) mg/dL Urine Ketones Negative (Negative) mg/dL Urine Blood Small (1+) H (Negative) Urine Nitrite Negative (Negative) Ur Leukocyte Esterase Negative (Negative) Urine RBC 3-5 H (0-2) /HPF Urine WBC 0-5 (0-5) /HPF Ur Squamous Epith Cells 0-2 (0-2) /HPF Urine Bacteria None Seen (None Seen) Hyaline Casts 0-2 (0-2) /LPF Urine Test NEGATIVE (NEGATIVE) Radiology Impression Discussion of test interpretation with radiology: I have reviewed the radiologist's reading. Radiologist Impression: Please see the discussion above External Record Review External record reviewed: Outpatient record, Prior outpatient labs and Prior outpatient radiology Critical Care Time Critical Care Time Critical Care Time: Yes Total Critical Care Time: 45 Attestation: I personally attest to this time spent taking care of the patient. Discharge Plan Discharge Clinical Impression: Ruptured ovarian cyst Patient Disposition: Home, Self-Care Instructions: Ovarian Cyst (ED) Additional Instructions: 1. Tylenol 1000 mg, orally, every 6 hours as needed for pain control. Do not exceed 4000 mg within 24 hours. 2. I have sent a prescription for anti-inflammatory medication that you should use with the Tylenol for increased symptom relief. Do not hesitate to use a heating pad for additional pain relief. 3. Please follow-up with Gynecology, the referral as provided to you below. Return to the ER for any worsening symptoms such as pain that is not managed by Tylenol/ibuprofen, any vaginal bleeding, dizziness with heart palpitations. Prescriptions: New ketorolac 10 mg tablet 10 mg PO Q6H PRN (Reason: pain) Qty: 20 0RF Rx Instructions: maximum total duration of 5 days from all oral, intranasal, or parenteral formulations Discontinued ibuprofen 800 mg tablet 800 mg PO Q8H PRN (Reason: pain) Qty: 30 0RF ibuprofen 600 mg tablet 600 mg PO Q6H PRN (Reason: fever or pain) Qty: 30 0RF No Action cxbphsrrh-udnowv-rwtintvn-scop [] 16.2-0.1037 -0.0194 mg/5 mL elixir 5 ml PO BID PRN (Reason: spasms) Qty: 480 0RF benzonatate 200 mg capsule 200 mg PO TID PRN (Reason: cough) Qty: 30 0RF Referrals: Netta Lang FNP [Primary Care Provider] - David Cardozo MD [Physician] - Print Language: Qatari
[2023-08-31 13:00] LABS: MANUAL DIFF FLAG NO
[2023-08-31 13:02] LABS: Basophils Absolute Auto 0.1 X10*3/uL (0.0-0.2); Basophils Percent Auto 0.4 % (0-2); Eosinophils Absolute Auto 0.1 X10*3/uL (0.0-0.4); Eosinophils Percent Auto 1.2 % (0-4); Hematocrit 43.8 % (37.0-47.0); Hemoglobin 14.6 g/dl (12.0-16.0); Imm Gran Abs Auto 0.04 X10*3/uL (0.00-0.03); Imm Gran Pct Auto 0.3 % (0.0-0.4); Lymphocytes Absolute Auto 2.5 X10*3/uL (1.2-4.9); Lymphocytes Percent Auto 21.8 % (20-40); Mean Corpuscular HGB Conc 33.3 g/dl (31.0-35.0); Mean Corpuscular Hemoglobin 29.4 pg (27.0-33.0); Mean Corpuscular Volume 88.1 fL (80.0-98.0); Mean Platelet Volume 9.5 fL (9.4-12.3); Monocytes Percent Auto 8.3 % (2-11); Neutrophils Absolute Auto 7.9 x10*3/uL (2.0-8.3); Platelet Count 273 X10*3/uL (160-400); Red Blood Count 4.97 X10*6/uL (4.20-5.50); White Blood Count 11.6 X10*3/uL (4.8-10.8)
[2023-08-31 13:05] LABS: Appearance Urine Clear; Color Urine Yellow; Glucose Urine UA Negative (Negative); Leukocyte Esterase Urine Negative (Negative); Nitrite Urine Negative (Negative); Specific Gravity - Urine 1.025 (1.005-1.025); UMIC TRIGGER UACC YES; Urine Blood Small (1+) (Negative); Urine Ketones Negative (Negative); Urine Protein 30 (1+) mg/dL (Neg-Trace)
[2023-08-31 13:06] LABS: Prothrombin Time 12.1 SEC (11.1-13.3)
[2023-08-31 13:09] LABS: Partial Thromboplastin Time 31.1 SEC (26.0-36.8)
[2023-08-31 13:13] LABS: Bacteria Urine None Seen (None Seen); Hyaline Casts Urine 0-2 /LPF (0-2); Squamous Epithelial Cell Urine 0-2 /HPF (0-2); WBC Urine 0-5 /HPF (0-5)
[2023-08-31 13:27] LABS: Alanine Aminotransferase 15 U/L (0-31); Albumin Level 4.3 g/dL (3.5-5.0); Alkaline Phosphatase 106 U/L (39-117); Anion Gap 10 (12-20); Aspartate Amino Transferase 17 U/L (5-31); Bilirubin Total 0.3 mg/dL (0.0-1.0); Blood Urea Nitrogen 13 mg/dL (9-16); Calcium 10.1 mg/dL (8.4-10.2); Carbon Dioxide 28 mmol/L (22-29); Chloride 106 mmol/L (96-108); Creatinine Clr Calc Pharmacy 102.4; Estimated Glomerular Filt Rate > 60; Glucose Random 86 mg/dL (60-115); Potassium 3.7 mmol/L (3.3-5.1); Sodium 140 mmol/L (135-145); Total Protein 8.6 g/dL (6.5-8.0)
[2023-08-31 13:35] LABS: HCG Quantitative < 2 mIU/mL
[2023-08-31 13:40] LABS: UPreg QC Valid YES; Urine Pregnancy NEGATIVE (NEGATIVE)
[2023-08-31 16:16] VITALS: BP 143/89; PULSE 84; RESP 18; TEMP 36.9; O2SAT 100
--- NOTE | 2023-08-31 17:22 | P.CONOB_ITS ---
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 cc:: CC: OB [facility] Past Medical History Medical History No known health problems Social History Social History Alcohol intake: never Smoked in Last 30 Days: No Advance Directives: No Advance Directives Information Provided: Yes Do you have a plan to hurt others: No Plan Patient : No Meds Allergies Allergy/AdvReac Type Severity Reaction Status Date / Time No Known Allergies Allergy Verified 08/31/23 12:38 STUFFING MACHINE OPERATOR Physical Exam Vitals Vital signs: Temp Pulse Resp BP Pulse Ox O2 Del Method 98.4 F 84 18 143/89 H 100 Room Air 08/31/23 16:16 08/31/23 16:16 08/31/23 16:16 08/31/23 16:16 08/31/23 16:16 08/31/23 16:16 BMI result Body Mass Index 39.0 Additional Comments: Reported by Dr. Ramirez as the following: Soft, left lower discomfort on palpation, non-distended with bowel sounds. STUFFING MACHINE OPERATOR - Results Labs 08/31/23 12:54 08/31/23 12:54 Labs: Short CBC 08/31/23 Range/Units 12:54 WBC 11.6 H (4.8-10.8) X10*3/uL Hgb 14.6 (12.0-16.0) g/dl Hct 43.8 (37.0-47.0) % Plt Count 273 (160-400) X10*3/uL BMP 08/31/23 12:54 Sodium 140 Potassium 3.7 Chloride 106 Carbon Dioxide 28 BUN 13 Creatinine 0.76 Calcium 10.1 Liver Function 08/31/23 Range/Units 12:54 Total Bilirubin 0.3 (0.0-1.0) mg/dL AST 17 (5-31) U/L ALT 15 (0-31) U/L Alkaline Phosphatase 106 (39-117) U/L Albumin 4.3 (3.5-5.0) g/dL Urine 08/31/23 Range/Units 12:54 Urine Color Yellow Urine Appearance Clear Urine pH 5.0 (5.0-9.0) Ur Specific [place] 1.025 (1.005-1.025) Urine Protein 30 (1+) H (Neg-Trace) mg/dL Urine Glucose (UA) Negative (Negative) mg/dL Urine Test NEGATIVE (NEGATIVE) Imaging US - abdomen: Radiologist's impression: ITS Impressions Doppler Study Ultrasound 08/31/23 13:29 IMPRESSION: 1. Complex cyst in left ovary measuring 2.7 cm. On the prior ultrasound exam of March 05, 2023 the left ovary cyst measuring 4.3 cm. 2. Small to moderate volume of complex fluid in the cul-de-sac. 3. Uterine fibroids. Pelvic/Transvag US 08/31/23 13:29 IMPRESSION: 1. Complex cyst in left ovary measuring 2.7 cm. On the prior ultrasound exam of March 05, 2023 the left ovary cyst measuring 4.3 cm. 2. Small to moderate volume of complex fluid in the cul-de-sac. 3. Uterine fibroids. Abdomen/Pelvis CT 08/31/23 14:13 IMPRESSION: No acute abnormality CT scan abdomen pelvis. Fleischner guidelines were followed. CT scan - pelvis: Radiologist's impression: ITS Impressions Doppler Study Ultrasound 08/31/23 13:29 IMPRESSION: 1. Complex cyst in left ovary measuring 2.7 cm. On the prior ultrasound exam of March 05, 2023 the left ovary cyst measuring 4.3 cm. 2. Small to moderate volume of complex fluid in the cul-de-sac. 3. Uterine fibroids. Pelvic/Transvag US 08/31/23 13:29 IMPRESSION: 1. Complex cyst in left ovary measuring 2.7 cm. On the prior ultrasound exam of March 05, 2023 the left ovary cyst measuring 4.3 cm. 2. Small to moderate volume of complex fluid in the cul-de-sac. 3. Uterine fibroids. Abdomen/Pelvis CT 08/31/23 14:13 IMPRESSION: No acute abnormality CT scan abdomen pelvis. Fleischner guidelines were followed. Assessment and Plan (1) Ruptured ovarian cyst: Status: Acute Recommended to Dr. Brazille the following: Repeat H&H, GC and chlamydia, if the patient is stable, discharge home for outpatient follow-up with the following instructions come back to emergency room in case any of the following occurs: Worsening or persistence of abdominal/pelvic pain, nausea or vomiting, fever above 100.4, heavy vaginal bleeding, to schedule a follow-up appointment in the office within 48 hours. I spent a total of 20 minutes reviewing the chart, communicating to the emergency room provider and documenting the medical record
[2023-08-31] MEDS: Ketorolac Tromethamine 15 MG/ML VIAL IM (17:26)
[2023-08-31] MEDS: Acetaminophen 325 MG TABLET 975 MG PO (18:01)
[2023-08-31 18:03] VITALS: BP 115/71; PULSE 71; RESP 18; TEMP 36.9; O2SAT 99
[2023-08-31 18:29] LABS: Hematocrit 40.5 % (37.0-47.0); Hemoglobin 13.7 g/dl (12.0-16.0)
[2023-08-31 19:13] VITALS: BP 111/52; PULSE 78; RESP 21; TEMP 36.7; O2SAT 98
== END 2023-08-31 19:14 | disposition home or self-care (01) ==
PROVIDERS: Physician Assistant; Emergency Provider Student in an Organized Health Care Education/Training Program; PCP Registered Nurse
DX: N83.292 Other ovarian cyst, left side (principal); D25.9 Leiomyoma of uterus, unspecified; R10.32 Left lower quadrant pain; R10.2 Pelvic and perineal pain
CPT/HCPCS: 36415; 74176; 76830; 76856; 80053; 81001; 81003; 81025; 84702; 85014; 85018; 85025; 85610; 85730; 93975; 96372; 99284; J1885

== ENCOUNTER → 2023-08-31 16:28 | Outpatient (BNV) | payer MEDICAID, SELFPAY | PROVIDERS: Emergency Provider Student in an Organized Health Care Education/Training Program; PCP Registered Nurse; Visit Provider Obstetrics & Gynecology | DX: N83.209 Unspecified ovarian cyst, unspecified side (principal) | CPT/HCPCS: 99283 ==

== ENCOUNTER 2023-10-07 11:47 | Outpatient (AMB) | payer MEDICAID, SELFPAY ==
[2023-10-07 11:52] VITALS: BMI 38.7
--- NOTE | 2023-10-07 11:52 | A.OFFVIS_ITS ---
Vital Signs 10/07/23 11:52 Height 5 ft 2 in Weight 211 lb 10.3 oz BMI 38.7 Intake Visit Reasons: ER follow up Intake Note: Doing better Glove Brusher Required: Yes Glove Brusher Language: Cafe Cook Services: Glove Brusher Present (in person) Glove Brusher Name: Trixie DOBBINS Information Interpreted: non-clinical & clinical Accompanied by: Self / Same As Patient Allergies No Known Allergies Allergy (Verified 10/07/23 11:55) Is last menstrual period known: Yes Last menstrual period: 09/10/23 HPI Comments Details: &H 14.6/43.8 repeated after 7 hours was 13.7/40.7 HCG was less than 2 Pelvic ultrasound showed the following: UTERUS: There is is anteverted and retroflexed. The uterus overall measures 11.4 x 4.4 x 6 cm. Endometrial thickness 1.5 cm. Uterine fibroids: 1. Anterior distal body myometrium 1.1 x 0.7 x 0.8 cm. This is unchanged since prior study. 2. Left side mid body myometrial 3.5 x 3.5 x 4.1 cm. This is unchanged since prior study. ADNEXA: Ovarian vascularity:Doppler demonstrates both arterial and venous vascular flow in the right and left ovary. No evidence of ovarian torsion. Right Ovary: Right ovary measures 2.8 x 2 x 2.3 cm. Volume 6.7 mL. Dominant follicle in the right ovary measuring 1.3 cm. Left Ovary: 3.2 x 2.6 x 3 cm. Volume 13.1 mL. Complex cyst in the left ovary measuring 2.2 x 1.8 x 2.7 cm. On the prior pelvic ultrasound exam of March 05, 2023 the left ovary measuring 4.8 x 3.8 x 2.5 cm, volume 47.8 mL. There was a 4.3 cm partially cystic lesion in the left ovary on the prior exam. Cul-de-sac: Small to moderate volume of complex fluid in the cul-de-sac. [facility] Medical History No known health problems Surgical History Hx of tubal ligation Hx of cholecystectomy Family History Father Diabetes HTN (hypertension) Prostate cancer Mother Diabetes HTN (hypertension) Social History Household Members: None Housing: Apartment Alcohol intake: never Patient Tobacco Use Status: Never used Tobacco Current occupational status: unemployed Sexual orientation: Straight/Heterosexual Gender identity: Female Female Reproductive History Menstrual Date of last menstrual period: 09/10/23 control method: permanent sterilization Total pregnancies: 4 Full term: 4 Number of Living Children: 4 Review of Systems Const All systems reviewed & are unremarkable except as noted in HPI and below Reports as per HPI and Reports no additional complaints GI Reports no additional complaints Reports no additional complaints Physical Exam Vital Signs: BMI result Body Mass Index 38.7 GI Inspection: Yes normal to inspection Palpation (GI): Soft to palpation and nontender Assessment & Plan Assessment & Plan (1) Complex ovarian cyst: Code(s): N83.299 - Other ovarian cyst, unspecified side Category: Medical Plan: Discussed with the patient the complex ovarian cyst by ultrasound. Discussed with the patient the Ultrasound findings, the main limitation of transvaginal ultrasonography alone as a diagnostic tool to distinguish benign from malignant masses relates to its lack of specificity and low positive predictive value for cancer. The differential diagnosis discussed with the patient includes the following but not limited to: benign and malignant gynecological and non-gynecological causes. Will repeat pelvic ultrasound follow-up on the complex ovarian cyst. Instructions given the patient to schedule pelvic ultrasound and a 2 week follow-up ultrasound appointment. All questions were answered & the patient verbalized understanding and agreed with the plan. Orders: Orders US pelvic and transvaginal 2 Weeks N83.299 - Other ovarian cyst, unspecified side Medications: Discontinued ukjakrwsx-avkjtb-atniolmz-scop 16.2-0.1037 -0.0194 mg/5 mL () Discontinued Reason: Patient no longer taking 5 mL PO BID PRN 480 mL 0RF spasms Coding Level of Care Code Est Pt Level 3 (07944) Diagnoses Complex ovarian cyst N83.299
== END 2023-10-07 12:06 | disposition home or self-care (01) ==
LOC: HO.HWS 11:47
PROVIDERS: PCP Registered Nurse; Referring Provider Registered Nurse; Visit Provider Obstetrics & Gynecology
DX: N83.299 Other ovarian cyst, unspecified side (principal)
CPT/HCPCS: 99213

== ENCOUNTER → 2023-10-07 11:47 | Outpatient (BNVA) | payer MEDICAID, SELFPAY | PROVIDERS: PCP Registered Nurse; Visit Provider Obstetrics & Gynecology | DX: Z09 Encounter for follow-up examination after completed treatment for conditions other than malignant neoplasm (principal); N83.292 Other ovarian cyst, left side; Z98.51 Tubal ligation status | CPT/HCPCS: 99212 ==

== ENCOUNTER 2023-11-17 11:07 | Outpatient (REF) | payer MEDICAID, SELFPAY ==
--- NOTE | ~2023-11-17 | US_ITS ---
EXAMINATION: US PELVIS CLINICAL INFORMATION: Complex ovarian cyst COMPARISON: CT abdomen and pelvis August 31, 2023; pelvic ultrasound August 31, 2023, March 05, 2023 TECHNIQUE: Ultrasound of the pelvis is performed using both transabdominal and transvaginal transducers along with Doppler. Transvaginal imaging is performed due to inadequate visualization transabdominally. FINDINGS: Uterus: The uterus is anteverted and measures 4.7 x 4.1 x 6 cm. The double wall endometrial thickness is 2 mm. Uterine fibroid measuring 1 x 0.8 x 0.9 cm, previously 1.1 x 0.7 x 0.8 cm. Additional fibroid anteriorly measuring 3 x 2.4 x 3.3 cm, previously 3.5 x 3.5 x 4.1 cm. Adnexa: Both ovaries are visualized. There is normal color flow to the adnexa. There is no ovarian torsion. There is no pelvic ascites or fluid collection. Nabothian cysts noted Right ovary measures 3.3 x 2.3 x 2 cm. Volume is 8 mL. Cyst in the right ovary measuring 1.8 x 1.6 x 1.8 cm. Punctate calcifications noted in the right ovary. Left ovary measures 2.2 x 1.6 x 1.2 cm. Volume is 2.2 mL. The previously noted left ovarian cyst is not appreciated on today's exam. US/US pelvic and transvaginal IMPRESSION: 1. The previously seen left complex ovarian cyst is not appreciated on today's exam. 2. Fibroid uterus, unchanged. Electronically signed by: Wilton Ashford MD 11/25/2023 11:02 AM EDT
== END 2023-11-17 11:08 | disposition home or self-care (01) ==
LOC: HO.US 11:07
PROVIDERS: PCP Registered Nurse; Visit Provider Obstetrics & Gynecology
DX: N83.299 Other ovarian cyst, unspecified side (principal)
CPT/HCPCS: 76830; 76856

== ENCOUNTER 2024-01-10 11:24 | Outpatient (REF) | payer MEDICAID, SELFPAY | END 2024-01-10 11:25 | disposition home or self-care (01) | LOC: HO.LNP 11:24 | PROVIDERS: PCP Registered Nurse; Visit Provider Obstetrics & Gynecology | DX: N83.292 Other ovarian cyst, left side (principal); D25.9 Leiomyoma of uterus, unspecified; N93.9 Abnormal uterine and vaginal bleeding, unspecified; Z32.02 Encounter for pregnancy test, result negative | CPT/HCPCS: 81025; 99212 ==

== ENCOUNTER 2024-01-10 11:24 | Outpatient (AMB) | payer MEDICAID, SELFPAY ==
[2024-01-10 11:27] VITALS: BP 138/72; BMI 38.6
--- NOTE | 2024-01-10 11:27 | A.OFFVIS_ITS ---
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 The patient is complaining of irregular menstrual cycles over the last few months PFSH Medical History No known health problems Surgical History Hx of tubal ligation Hx of cholecystectomy Family History Father Diabetes HTN (hypertension) Prostate cancer Mother Diabetes HTN (hypertension) Social History Household Members: None Housing: Apartment Alcohol intake: never Patient Tobacco Use Status: Never used Tobacco Current occupational status: unemployed Sexual orientation: Straight/Heterosexual Gender identity: Female Review of Systems Const All systems reviewed & are unremarkable except as noted in HPI and below Reports as per HPI and Reports no additional complaints Card Reports as per HPI Resp Reports as per HPI GI Reports no additional complaints Reports no additional complaints Physical Exam Vital Signs: Last Vital Signs BP 138/72 01/10/24 11:27 BMI result Body Mass Index 38.6 Const General: cooperative, healthy appearing and comfortable Chest Chest palpation & inspection: normal inspection of the chest and normal palpation of entire chest wall Breast/axilla inspection: normal inspection of the breasts and normal inspection of the axillae Breast/axilla palpation: normal palpation of the breasts, normal palpation of the axillae and no axillary lymphadenopathy Resp Effort & Inspection: normal respiratory effort Auscultation: clear to auscultation bilaterally Percussion: percussion normal Cardio Palpation: normal PMI Rate: regular rate Rhythm: regular rhythm Heart sounds: no murmurs and no rubs Peripheral pulses: Peripheral pulses 2+ throughout GI Inspection: Yes normal to inspection Palpation (GI): Soft to palpation, nontender, no guarding, not rigid and No h epatosplenomegaly present Percussion: Yes normal to percussion Auscultation: normal bowel sounds Rectal Exam - Female: deferred General: Yes bladder normal to palpation External Female Exam: No lesion Speculum Exam - Vagina: normal appearance of the vagina, normal palpation, normal vaginal discharge and not erythematous Speculum Exam - Cervix: normal appearance of the cervix and normal palpation Bimanual exam- vagina & uterus: normal bimanual exam, normal palpation, uterine size normal, bladder normal to palpation, consistency normal and normal palpation Bimanual Exam- Adnexa, other: normal adnexae, no masses and no tenderness Results AMB Test Urine AMB Test Urine Negative Last Edit by Paige Beyer CMA on 01/10/24 11:44 Results Reviewed Results Reviewed: Laboratory Last Values Tst Clinic Negative 01/10/24 11:44 Assessment & Plan Assessment & Plan (1) Complex ovarian cyst: Code(s): N83.299 - Other ovarian cyst, unspecified side Category: Medical Plan: Discussed with the patient ultrasound findings showing the previously identified complex cyst has resolved. The patient was instructed to call if symptoms recur. All questions were answered the patient verbalized understanding. (2) Uterine myoma: Code(s): D25.9 - Leiomyoma of uterus, unspecified Category: Medical Plan: Discussed with the patient the findings on pelvic ultrasound & the risk of myosarcoma; discussed with the patient the options of treatment including expectant management versus hysterectomy; the pros and cons, risks benefits of each approach were discussed with the patient including the fact that in cases of myosarcoma, surgical treatment can lead to early diagnosis and positively affects the prognosis; after further discussion, the patient decided to proceed with expectant management. Will repeat pelvic ultrasound periodically. Instructions given to patient to call in case any of the following occurs: pressure symptoms, abnormal uterine bleeding, pelvic pain; and to schedule a 12 months months pelvic ultrasound and a follow-up appointment . All questions answered, the patient verbalized understanding and agreed with the plan . (3) Abnormal uterine bleeding (AUB): Code(s): N93.9 - Abnormal uterine and vaginal bleeding, unspecified Category: Medical Plan: Urine test done in the office was negative. Screening mammogram, Co testing done, GC and chlamydia taken CBC, TSH, prolactin, HCG, and pelvic ultrasound ordered. Discussed with the patient the different causes of abnormal bleeding including thyroid disorders, uterine and ovarian pathology, endometrial hyperplasia, carcinoma and other potential causes. Discussed with the patient the work up including CBC (to r/o anemia), TSH, prolactin, pelvic Ultrasound, endometrial biopsy to r/o endometrial pathology. All questions answered and the patient verbalized understanding. Instructed the patient to schedule an appointment for an endometrial biopsy in 2 weeks. Orders: Orders US pelvic and transvaginal 1 Year D25.9 - Leiomyoma of uterus, unspecified Complete Blood Count no Diff Today N93.9 - Abnormal uterine and vaginal bleeding, unspecified TSH reflex Free T4 Today N93.9 - Abnormal uterine and vaginal bleeding, unspecified Prolactin Today N93.9 - Abnormal uterine and vaginal bleeding, unspecified Follicle Stimulating Hormone Today N93.9 - Abnormal uterine and vaginal bleeding, unspecified HCG Quantitative Today N93.9 - Abnormal uterine and vaginal bleeding, unspecified Lutenizing Hormone Today N93.9 - Abnormal uterine and vaginal bleeding, unspecified MM screening mammo BI Today Z12.31 - Encounter for screening mammogram for malignant neoplasm of breast AMB HCG Urine Test Today Z32.02 - Encounter for test, result negative Coding Level of Care Code Est Pt Level 3 (22116) Diagnoses Complex ovarian cyst N83.299 Uterine myoma D25.9 Abnormal uterine bleeding (AUB) N93.9
== END 2024-01-10 12:01 | disposition home or self-care (01) ==
LOC: HO.HWS 11:24
PROVIDERS: PCP Registered Nurse; Visit Provider Obstetrics & Gynecology
DX: N83.299 Other ovarian cyst, unspecified side (principal); D25.9 Leiomyoma of uterus, unspecified; N93.9 Abnormal uterine and vaginal bleeding, unspecified; Z32.02 Encounter for pregnancy test, result negative
CPT/HCPCS: 99213

== ENCOUNTER 2024-01-10 12:07 | Outpatient (REF) | payer MEDICAID, SELFPAY ==
[2024-01-10 13:01] LABS: Hematocrit 42.1 % (37.0-47.0); Mean Corpuscular HGB Conc 33.3 g/dl (31.0-35.0); Mean Corpuscular Hemoglobin 29.5 pg (27.0-33.0); Mean Corpuscular Volume 88.8 fL (80.0-98.0); Platelet Count 337 X10*3/uL (160-400); Red Blood Count 4.74 X10*6/uL (4.20-5.50); Red Cell Distribution Width 12.6 % (11.0-16.0); White Blood Count 7.9 X10*3/uL (4.8-10.8)
[2024-01-10 14:05] LABS: HCG Quantitative < 2 mIU/mL; TSH reflex Free T4 1.07 uIU/mL (0.32-4.0)
[2024-01-11 05:11] LABS: CT PCR NOT DETECTED (Not Detect.); NG PCR NOT DETECTED (Not Detect.)
[2024-01-11 11:48] LABS: Prolactin 7.6 ng/mL
[2024-01-13 15:57] LABS: HPV mRNA E6/E7 Not Detected (Not Detected)
== END 2024-01-10 12:08 | disposition home or self-care (01) ==
LOC: HO.LAB 12:07
PROVIDERS: PCP Registered Nurse; Visit Provider Obstetrics & Gynecology
DX: N93.9 Abnormal uterine and vaginal bleeding, unspecified (principal); Z11.3 Encounter for screening for infections with a predominantly sexual mode of transmission
CPT/HCPCS: 36415; 83001; 83002; 84146; 84443; 84702; 85027; 87491; 87591; 87624; 88175

== ENCOUNTER 2024-01-27 10:47 | Outpatient (AMB) | payer MEDICAID, SELFPAY ==
--- NOTE | 2024-01-27 10:49 | A.OFFVIS_ITS ---
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 Services: Hospitality Job Titles Present Hospitality Job Titles Name: SHILPI Giron Information Interpreted: non-clinical & clinical Accompanied by: Self / Same As Patient Allergies No Known Allergies Allergy (Verified 01/27/24 10:51) HPI Comments Details: Here for [facility] Medical History No known health problems Surgical History Hx of tubal ligation Hx of cholecystectomy Family History Father Diabetes HTN (hypertension) Prostate cancer Mother Diabetes HTN (hypertension) Social History Household Members: None Housing: Apartment Alcohol intake: never Patient Tobacco Use Status: Never used Tobacco Current occupational status: unemployed Sexual orientation: Straight/Heterosexual Gender identity: Female Female Reproductive History Menstrual Duration of menses: 3-5 days Date of last menstrual period: 01/11/24 Review of Systems Const All systems reviewed & are unremarkable except as noted in HPI and below Reports as per HPI and Reports no additional complaints GI Reports no additional complaints Reports no additional complaints Physical Exam Vital Signs: Last Vital Signs BP 120/74 01/27/24 10:52 Office Procedures Endometrial Biopsy Details: The patient was counseled regarding the indication and benefits of endometrial sampling to rule out endometrial pathology including not limited to endometrial hyperplasia or endometrial cancer and others; The alternatives (Either do nothing vs. hysteroscopy D&C) & the risks were discussed with the patient including but not limited: pain, uterine perforation, bleeding, infection, possible injury to bladder, bowel, ureter, possible need for blood transfusion with all its possible risks. The patient verbalized understanding all questions answered and signed consent. Urine test done in the office was negative The patient was placed into the dorsal lithotomy position; a speculum was inserted in the vagina. Using aseptic technique for the procedure, the cervix was cleansed with Betadine. The anterior lip of the cervix was grasped with a single tooth tenaculum. The uterus was sounded to 7 cm with a 4 mm Pipelle was used. Tissues samples were obtained and placed in formalin, in a patient labeled container and sent to the pathology department. At the end of the procedure, there was minimal bleeding noted The patient tolerated the procedure well and was discharged in good condition with the following instructions: Nothing in the vagina until the bleeding stops. No sex until the bleeding stops, to call if any of the following occurs: fever (>100.4), flu-like symptoms, abdominal pain, heavy bleeding, four smelling vaginal discharge. The patient was instructed to schedule a Follow up appointment in 2 weeks to discuss pathology results of the biopsy and treatment options. This note was generated with a voice recognition program. Some errors may have been overlooked during the review of this note. Sometimes these errors may affect the content or meaning of a given sentence. [id number] Biopsy Assessment & Plan Assessment & Plan (1) Abnormal uterine bleeding (AUB): Code(s): N93.9 - Abnormal uterine and vaginal bleeding, unspecified Category: Medical Plan: EMB done, see procedure note Orders: Orders AMB Endometrial Biopsy Today N93.9 - Abnormal uterine and vaginal bleeding, unspecified Coding Level of Care Code Procedure Only Diagnoses Abnormal uterine bleeding (AUB) N93.9 CPT Codes Endometrial Biopsy - CPT: 54416-[place] Biopsy ([id number])
[2024-01-27 10:52] VITALS: BP 120/74
== END 2024-01-27 11:24 | disposition home or self-care (01) ==
PROVIDERS: PCP Registered Nurse; Visit Provider Obstetrics & Gynecology
DX: N93.9 Abnormal uterine and vaginal bleeding, unspecified (principal); Z32.02 Encounter for pregnancy test, result negative
CPT/HCPCS: 58100

== ENCOUNTER 2024-01-27 10:47 | Outpatient (REF) | payer MEDICAID, SELFPAY | END 2024-01-27 10:48 | disposition home or self-care (01) | LOC: HO.LNP 10:47 | PROVIDERS: PCP Registered Nurse; Visit Provider Obstetrics & Gynecology | DX: Z32.02 Encounter for pregnancy test, result negative (principal); N93.9 Abnormal uterine and vaginal bleeding, unspecified | CPT/HCPCS: 58100; 81025; 88305 ==

== ENCOUNTER 2024-02-29 09:02 | Outpatient (REF) | payer MEDICAID, SELFPAY | END 2024-02-29 09:03 | disposition home or self-care (01) | LOC: HO.MAMMO 09:02 | PROVIDERS: PCP Registered Nurse; Visit Provider Obstetrics & Gynecology | DX: Z12.31 Encounter for screening mammogram for malignant neoplasm of breast (principal) | CPT/HCPCS: 77063; 77067 ==

== ENCOUNTER → 2024-02-29 09:15 | Outpatient (BNV) | payer MEDICAID, SELFPAY | PROVIDERS: PCP Registered Nurse; Visit Provider Internal Medicine | DX: Z12.31 Encounter for screening mammogram for malignant neoplasm of breast (principal) | CPT/HCPCS: 77063; 77067 ==

== ENCOUNTER 2024-03-12 16:34 | Emergency (ER) | payer MEDICAID, SELFPAY ==
--- NOTE | ~2024-03-12 | CT_ITS ---
CLINICAL HISTORY: L sided SCHMIDT x4d CT head without contrast Comparison: None Findings: No acute hemorrhage. Basal ganglia calcifications. No extra-axial fluid collection. No hydrocephalus, mass-effect or herniation. Wang-white differentiation is maintained. White matter is within normal limits for age. No acute orbital pathology. No acute soft tissue abnormality. No fracture. The visualized paranasal sinuses are predominantly clear. The mastoid air cells are clear. Impression: No acute findings. This document has been electronically signed by: Deja Qiu MD on 03/12/2024 18:21:09
[2024-03-12 16:58] VITALS: BP 122/73; PULSE 79; RESP 20; TEMP 36.4; O2SAT 100; BMI 41.6
[2024-03-12 17:36] LABS: MANUAL DIFF FLAG NO
[2024-03-12 17:38] LABS: Basophils Absolute Auto 0.1 X10*3/uL (0.0-0.2); Basophils Percent Auto 0.6 % (0-2); Eosinophils Absolute Auto 0.2 X10*3/uL (0.0-0.4); Eosinophils Percent Auto 2.5 % (0-4); Hematocrit 41.8 % (37.0-47.0); Hemoglobin 13.6 g/dl (12.0-16.0); Imm Gran Abs Auto 0.03 X10*3/uL (0.00-0.03); Imm Gran Pct Auto 0.3 % (0.0-0.4); Lymphocytes Absolute Auto 2.4 X10*3/uL (1.2-4.9); Lymphocytes Percent Auto 26.6 % (20-40); Mean Corpuscular HGB Conc 32.5 g/dl (31.0-35.0); Mean Corpuscular Hemoglobin 28.6 pg (27.0-33.0); Mean Platelet Volume 9.4 fL (9.4-12.3); Monocytes Absolute Auto 0.7 X10*3/uL (0.1-1.2); Monocytes Percent Auto 7.7 % (2-11); Neutrophils Absolute Auto 5.6 x10*3/uL (2.0-8.3); Neutrophils Percent Auto 62.3 % (45-73); Platelet Count 335 X10*3/uL (160-400); Red Blood Count 4.75 X10*6/uL (4.20-5.50); Red Cell Distribution Width 12.7 % (11.0-16.0); White Blood Count 8.9 X10*3/uL (4.8-10.8)
[2024-03-12 17:54] LABS: Alanine Aminotransferase 19 U/L (0-31); Albumin Level 3.9 g/dL (3.5-5.0); Alkaline Phosphatase 110 U/L (39-117); Anion Gap 14 (12-20); Aspartate Amino Transferase 18 U/L (5-31); Bilirubin Total 0.2 mg/dL (0.0-1.0); Blood Urea Nitrogen 13 mg/dL (9-16); C Reactive Protein 0.72 mg/dL (< or = 0.50); Calcium 9.4 mg/dL (8.4-10.2); Carbon Dioxide 26 mmol/L (22-29); Chloride 107 mmol/L (96-108); Creatinine Clr Calc Pharmacy 101.2; Estimated Glomerular Filt Rate > 60; Glucose Random 95 mg/dL (60-115); Magnesium 1.8 mg/dL (1.6-2.6); Potassium 3.8 mmol/L (3.3-5.1); Sodium 143 mmol/L (135-145); Total Protein 7.9 g/dL (6.5-8.0)
[2024-03-12 18:01] LABS: HCG Quantitative < 2 mIU/mL
[2024-03-12 18:17] LABS: Influenza A PCR NEGATIVE (Negative); Influenza B PCR NEGATIVE (Negative); Resp Syncy Virus RNA Qual PCR NEGATIVE (Negative); SARS COV2 PCR INHOUSE NEGATIVE (Negative)
--- NOTE | 2024-03-12 18:18 | ED_ITS ---
HPI - Headache General Chief Complaint: Headache Stated Complaint: headache x4 days Time Seen by Provider: 03/12/24 22:38 Source: patient Mode of arrival: ambulatory Limitations: no limitations History of Present Illness ED Provider: HPI Narrative: Patient with no significant history of migraine in the past does have chronic upper back pain comes here for the headache for last 3 4 days localized to the left side of the head associated with light sensitivity or nausea also complaining of upper back pain never been diagnose with migraine or fibromyalgia no fever no chills no head injury Related Data Home Medications ?Medication ?Instructions ?Recorded ?Confirmed gabapentin 100 mg capsule 200 mg PO TID 10/07/23 mirtazapine 15 mg tablet 15 mg PO BEDTIME 10/07/23 mirtazapine 30 mg tablet 30 mg PO BEDTIME 10/07/23 risperidone 1 mg tablet 1 - 2 mg PO BEDTIME hallucinations 10/07/23 sertraline 100 mg tablet 200 mg PO DAILY 10/07/23 trazodone 100 mg tablet 200 mg PO BEDTIME PRN 10/07/23 Previous Rx's ?Medication ?Instructions ?Recorded ketorolac 10 mg tablet 10 mg PO Q6H PRN pain #20 tabs 08/31/23 cfycsjvsdx-lvffcmxgrmhoo-mvohmeqz 1 tab PO Q6H PRN haeadace #20 tabs 03/12/24 50 mg-325 mg-40 mg tablet ondansetron 4 mg disintegrating 4 mg PO Q6-8H PRN nausea and 03/12/24 tablet vomiting #7 tabs tramadol 50 mg tablet 50 mg PO Q6H PRN pain #20 tabs 03/12/24 Allergies Allergy/AdvReac Type Severity Reaction Status Date / Time No Known Allergies Allergy Verified 03/12/24 17:00 Review of Systems 2 Review of Systems: Yes all other systems are reviewed and are negative PMFSH Past Medical History Medical History No known health problems Surgical History Hx of tubal ligation Hx of cholecystectomy Family History Family History Father Diabetes HTN (hypertension) Prostate cancer Mother Diabetes HTN (hypertension) Social History Social History Household Members: None Housing: Apartment Alcohol intake: never Patient Tobacco Use Status: Never used Tobacco Smoked in Last 30 Days: No Use of substances other than those prescribed or required for medical reasons: No Advance Directives: No Advance Directives Information Provided: No Do you have a plan to hurt others: No Plan Current occupational status: unemployed Sexual orientation: Straight/Heterosexual Gender identity: Female Physical Exam 2 Vital Signs: Vital Signs: Last Vital Signs Temp 98.3 F 03/12/24 23:43 Pulse 77 03/12/24 23:43 Resp 17 03/12/24 23:43 BP 109/67 03/12/24 23:43 Pulse Ox 100 03/12/24 23:43 O2 Del Method Room Air 03/12/24 23:43 BMI result Body Mass Index 41.6 Appearance: Alert. Oriented X3. No acute distress. Eyes: PERRLA, No Nystagmus ENT: Pharynx normal. Oral Mucosa moist no temporal artery tenderness Neck: Normal inspection. Neck supple. CVS: Normal heart rate and rhythm. Pulses normal. Respiratory: No respiratory distress. Equal air entry bilateral, no wheezing/rales/rhonchi Abdomen: Soft and nontender. Bowel sounds are present, no mass palpable, no CVA tenderness Skin: Skin warm and dry. Normal skin color. Normal skin turgor. Extremities: No lower extremity edema. No calf tenderness Neuro: Oriented X 3. No motor deficit. No sensory deficit.No cerebellar signs , cranial nerves II-XII intact Course Course Course Narrative: This is a Rapid Medical Examination (RME) performed by Alireza Trivedi PA-C in triage. Full HPI, ROS, assessment and treatment plan per primary provider in the Main ED. 43 yo female here for eval of L sided headache and L ear pain x4 days. no hx migraines. no vision changes, N/V. +tenderness to L scalp. exam nonfocal. left EAC and TM normal. Plan: labs, viral swabs, CT Medications Administered Discontinued Medications Generic Name Dose Route Start Last Admin Trade Name Freq PRN Reason Stop Dose Admin Acetaminophen/Butalbital/Caffeine 1 tab 03/12/24 23:09 03/12/24 23:39 Butalb/Acetamin/Caff 50/325/40 Tablet PO 03/12/24 23:10 1 tab ONCE ONE Administration Ondansetron HCl 4 mg 03/12/24 23:09 03/12/24 23:40 Ondansetron Odt 4 Mg Tab.Beth TRANSLINGU 03/12/24 23:10 4 mg ONCE ONE Administration Tramadol HCl 50 mg 03/12/24 23:09 03/12/24 23:39 Tramadol Hcl 50 Mg Tablet PO 03/12/24 23:10 50 mg ONCE ONE Administration Medical Decision Making Medical Decision Making MDM Narrative: Patient with left-sided headache with light sensitivity with likely fibromyalgia for chronic upper back pain will discharge patient home on tramadol Fioricet and Zofran Lab Data [facility] Lab Attestation statement: I reviewed the patient's lab results. 03/12/24 17:30 03/12/24 17:30 Labs: Lab Results 03/12/24 Range/Units 17:30 WBC 8.9 (4.8-10.8) X10*3/uL RBC 4.75 (4.20-5.50) X10*6/uL Hgb 13.6 (12.0-16.0) g/dl Hct 41.8 (37.0-47.0) % MCV 88.0 (80.0-98.0) fL MCH 28.6 (27.0-33.0) pg MCHC 32.5 (31.0-35.0) g/dl RDW 12.7 (11.0-16.0) % Plt Count 335 (160-400) X10*3/uL MPV 9.4 (9.4-12.3) fL Immature Gran % (Auto) 0.3 (0.0-0.4) % Neut % (Auto) 62.3 (45-73) % Lymph % (Auto) 26.6 (20-40) % Atkinson % (Auto) 7.7 (2-11) % Eos % (Auto) 2.5 (0-4) % Baso % (Auto) 0.6 (0-2) % Lymph # (Auto) 2.4 (1.2-4.9) X10*3/uL Atkinson # (Auto) 0.7 (0.1-1.2) X10*3/uL Eos # (Auto) 0.2 (0.0-0.4) X10*3/uL Baso # (Auto) 0.1 (0.0-0.2) X10*3/uL Abs Immat Gran (auto) 0.03 (0.00-0.03) X10*3/uL Absolute Neuts (auto) 5.6 (2.0-8.3) x10*3/uL Absolute Nucleated RBC 0.000 (0.0-0.012) X10*3/uL Nucleated RBC % (auto) 0.0 (0.0-0.2) /100WBC ESR 24 H (0-20) MM/HR Sodium 143 (135-145) mmol/L Potassium 3.8 (3.3-5.1) mmol/L Chloride 107 (96-108) mmol/L Carbon Dioxide 26 (22-29) mmol/L Anion Gap 14 (12-20) BUN 13 (9-16) mg/dL Creatinine 0.79 (0.5-1.4) mg/dL Estim Creat Clear Calc 101.2 Estimated GFR > 60 Random Glucose 95 (60-115) mg/dL Calcium 9.4 D (8.4-10.2) mg/dL Magnesium 1.8 (1.6-2.6) mg/dL Total Bilirubin 0.2 (0.0-1.0) mg/dL AST 18 (5-31) U/L ALT 19 (0-31) U/L Alkaline Phosphatase 110 (39-117) U/L C-Reactive Protein 0.72 H (< or = 0.50) mg/dL Total Protein 7.9 (6.5-8.0) g/dL Albumin 3.9 (3.5-5.0) g/dL Beta HCG, Quant < 2 mIU/mL Influenza Type A (PCR) NEGATIVE (Negative) Influenza Type B (PCR) NEGATIVE (Negative) RSV RNA Qual (PCR) NEGATIVE (Negative) SARS-CoV-2 RNA (RT-PCR) NEGATIVE (Negative) Independent Interpretation I performed an independent interpretation of an: CT Scan Radiology Impression Discussion of test interpretation with radiology: I have reviewed the radiologist's reading. Radiologist Impression: NAD Discharge Plan Discharge Clinical Impression: Migraine, Fibromyalgia Patient Disposition: Home, Self-Care Instructions: Migraine Headache (ED), Fibromyalgia (ED) Additional Instructions: Likely have migraine headache and fibromyalgia Take medication for headache and fibromyalgia as prescribed Medicine for nausea as prescribed Prescriptions: New tramadol 50 mg tablet 50 mg PO Q6H PRN (Reason: pain) Qty: 20 0RF vhcvsyjkvq-qhjzfqrvifkqr-ouen 50-325-40 mg tablet 1 tab PO Q6H PRN (Reason: haeadace) Qty: 20 0RF ondansetron 4 mg tablet,disintegrating 4 mg PO Q6-8H PRN (Reason: nausea and vomiting) Qty: 7 0RF No Action ketorolac 10 mg tablet 10 mg PO Q6H PRN (Reason: pain) Qty: 20 0RF Rx Instructions: maximum total duration of 5 days from all oral, intranasal, or parenteral formulations risperidone 1 mg tablet 1 - 2 mg PO BEDTIME mirtazapine 15 mg tablet 15 mg PO BEDTIME mirtazapine 30 mg tablet 30 mg PO BEDTIME trazodone 100 mg tablet 200 mg PO BEDTIME PRN gabapentin 100 mg capsule 200 mg PO TID sertraline 100 mg tablet 200 mg PO DAILY Interventions: ED Discharge Assessment Last Done: 03/12/24 23:43 Discharge Date/Time: 03/12/24 23:44 Print Language: Peruvian
[2024-03-12 18:23] LABS: Erythrocyte Sedimentation Rate 24 MM/HR (0-20)
[2024-03-12 20:58] VITALS: BP 109/67; PULSE 77; RESP 17; TEMP 36.8; O2SAT 100
--- NOTE | 2024-03-12 23:31 | PC.NURSE ---
assumed care of pt at this time
[2024-03-12] MEDS: Butalb/Acetamin/Caff 50/325/40 TABLET 1 TAB PO (23:39)
[2024-03-12] MEDS: traMADoL HCL 50 MG TABLET PO (23:39)
[2024-03-12] MEDS: Ondansetron ODT 4 MG TAB.RAPDIS TRANSLINGU (23:40)
[2024-03-12 23:43] VITALS: BP 109/67; PULSE 77; RESP 17; TEMP 36.8; O2SAT 100
== END 2024-03-12 23:44 | disposition home or self-care (01) ==
PROVIDERS: Physician Assistant Medical; Emergency Provider Internal Medicine; PCP Registered Nurse
DX: G43.909 Migraine, unspecified, not intractable, without status migrainosus (principal); M54.6 Pain in thoracic spine; M79.7 Fibromyalgia; Z03.818 Encounter for observation for suspected exposure to other biological agents ruled out; Z79.899 Other long term (current) drug therapy
CPT/HCPCS: 0241U; 36415; 70450; 80053; 83735; 84702; 85025; 85652; 86140; 99284

== ENCOUNTER → 2024-03-12 17:03 | Outpatient (BNV) | payer MEDICAID, SELFPAY | PROVIDERS: PCP Registered Nurse; Visit Provider Radiology Diagnostic Radiology | DX: R51.9 Headache, unspecified (principal) | CPT/HCPCS: 70450 ==

== ENCOUNTER 2024-04-12 16:20 | Emergency (ER) | payer MEDICAID, SELFPAY ==
--- NOTE | ~2024-04-12 | CT_ITS ---
CLINICAL HISTORY: right flank pain CT abdomen and pelvis without contrast Comparison: CT/ND/SR - CT ABDOMEN PELVIS WO IV CON - 08/31/23 13:38 EDT Findings: Lung bases clear. Cholecystectomy. No abnormal biliary ductal dilatation. No significant abnormality of the liver, pancreas, spleen, or adrenal glands. Unremarkable kidneys, ureters, and urinary bladder. Ovaries and uterus are normal. Normal stomach, small bowel, appendix, and colon. No aortic aneurysm. Bones intact. IMPRESSION: No acute findings. This document has been electronically signed by: Rm Mcwilliams MD on 04/12/2024 22:43:00
[2024-04-12 17:30] VITALS: BP 118/77; PULSE 86; RESP 19; TEMP 37.2; O2SAT 98; BMI 38.4
--- NOTE | 2024-04-12 17:32 | ED.ABDPAIN ---
HPI - Abdominal Pain General Chief Complaint: Abdominal Pain Stated Complaint: Low Abd Pain Time Seen by Provider: 04/12/24 21:34 Source: patient Limitations: no limitations History of Present Illness ED Provider: Nevin Morrison PA-C HPI narrative: 43-year-old female who is morbidly obese presents with back pain since this morning. Pain originates in right lower back and radiates around across the flank to the right lower abdomen. Pain worse with movement, and it fluctuates in intensity. Patient denies history of kidney stones, dysuria or hematuria. Denies new heavy lifting or exercise that could have precipitated her symptoms. Patient denies radiation of pain down the leg, paresthesia, weakness, urinary retention or bowel incontinence. Denies diarrhea or constipation. No nausea vomiting. Related Data Home Medications ?Medication ?Instructions ?Recorded ?Confirmed gabapentin 100 mg capsule 200 mg PO TID 10/07/23 mirtazapine 15 mg tablet 15 mg PO BEDTIME 10/07/23 mirtazapine 30 mg tablet 30 mg PO BEDTIME 10/07/23 risperidone 1 mg tablet 1 - 2 mg PO BEDTIME hallucinations 10/07/23 sertraline 100 mg tablet 200 mg PO DAILY 10/07/23 trazodone 100 mg tablet 200 mg PO BEDTIME PRN 10/07/23 Previous Rx's ?Medication ?Instructions ?Recorded ketorolac 10 mg tablet 10 mg PO Q6H PRN pain #20 tabs 08/31/23 wfmnrgrhoi-qjkfxwnqcaekp-coybpzpz 1 tab PO Q6H PRN haeadace #20 tabs 03/12/24 50 mg-325 mg-40 mg tablet ondansetron 4 mg disintegrating 4 mg PO Q6-8H PRN nausea and 03/12/24 tablet vomiting #7 tabs tramadol 50 mg tablet 50 mg PO Q6H PRN pain #20 tabs 03/12/24 meloxicam 15 mg tablet 15 mg PO DAILY #7 tabs 04/13/24 methocarbamol 750 mg tablet 750 mg PO Q8H PRN pain, moderate 04/13/24 #10 tabs Allergies Allergy/AdvReac Type Severity Reaction Status Date / Time No Known Allergies Allergy Verified 04/12/24 17:31 Review of Systems Review of Systems Yes all other systems are reviewed and are negative Constitutional: Denies fatigue and Denies fever(s) Cardiovascular: Denies chest pain Gastrointestinal: Reports abdominal pain, Denies constipation, Denies diarrhea, Denies nausea and Denies vomiting Genitourinary: Denies hematuria and Denies dysuria Musculoskeletal: Reports back pain, Denies numbness, Denies radiating pain into limb and Denies tingling Denies numbness and Denies tingling Endocrine: Denies fatigue PMF Past Medical History Attestation statement: The following information was validated with the patient. Medical History No known health problems Surgical History Hx of tubal ligation Hx of cholecystectomy Family History Family History Father Diabetes HTN (hypertension) Prostate cancer Mother Diabetes HTN (hypertension) Social History Social History Household Members: None Housing: Apartment Alcohol intake: never Patient Tobacco Use Status: Never used Tobacco Advance Directives: No Advance Directives Information Provided: No Do you have a plan to hurt others: No Plan Current occupational status: unemployed Sexual orientation: Straight/Heterosexual Gender identity: Female Physical Exam ED Vital Signs: Vital Signs - 24 hr 04/12/24 17:30 04/12/24 20:28 Temperature 99 F 98.5 F Pulse Rate 86 85 Respiratory Rate 19 18 Blood Pressure 118/77 122/83 Pulse Oximetry 98 97 Oxygen Delivery Method Room Air Room Air BMI result Body Mass Index 38.4 Const Other: Alert Orientation/consciousness: patient oriented x3 Resp Effort & Inspection: normal respiratory effort Cardio Other: Normal peripheral perfusion GI Other: Abdomen is soft, mild tenderness along right mid to lower abdomen without guarding Back/Spine/Pelvis Other: No CVA tenderness Skin Other: Warm dry no rash Neuro Other: Walks with antalgic gait General: patient oriented x3, no focal motor deficits and CN's II-XI intact bilaterally Psych Other: Cooperative Course Course Course Narrative: This is a Rapid Medical Examination (RME) performed by Alireza Trivedi PA-C in triage. Full HPI, ROS, assessment and treatment plan per primary provider in the Main ED. 43 yo azeri speaking female here with right lower abd pain radiating to her back upon waking this morning. denies N/V/D, urinary sx. Plan: labs, UA Medical Decision Making Medical Decision Making MDM Narrative: 43-year-old female who is morbidly obese presents with back pain since this morning. Pain originates in right lower back and radiates around across the flank to the right lower abdomen. Pain worse with movement, and it fluctuates in intensity. Patient denies history of kidney stones, dysuria or hematuria. Denies new heavy lifting or exercise that could have precipitated her symptoms. Patient denies radiation of pain down the leg, paresthesia, weakness, urinary retention or bowel incontinence. Denies diarrhea or constipation. No nausea vomiting. Problem: Obesity History: Per patient I have considered the following differential diagnoses: Lumbar strain, lumbar radiculopathy, cauda equina, renal colic, UTI, pyelonephritis Plan: Given distribution of discomfort, I am considering renal colic, however she has no related GI or related symptoms, no history of kidney stones. Screening labs including a urinalysis were obtained from triage, she is passing some hematuria, obtaining a CT scan giving [place]. She does not have a fever or CVA tenderness to suggest pyelonephritis. She is not have any radicular symptoms and she has no red flag signs symptoms concerning for cord compression. I have independently reviewed the following tests: Labs: No leukocytosis, not anemic, no electrolyte abnormality, not , urine not infected passing hematuria CT abdomen and pelvis:Lung bases clear. Cholecystectomy. No abnormal biliary ductal dilatation. No significant abnormality of the liver, pancreas, spleen, or adrenal glands. Unremarkable kidneys, ureters, and urinary bladder. Ovaries and uterus are normal. Normal stomach, small bowel, appendix, and colon. No aortic aneurysm. Bones intact. IMPRESSION: No acute findings. This document has been electronically signed by: Rm Mcwilliams MD on 04/12/2024 22:43:00 I have viewed the CT images myself, she does have stool burden Lab Data 04/12/24 17:43 04/12/24 17:43 Labs: Lab Results 04/12/24 Range/Units 17:43 WBC 11.0 H (4.8-10.8) X10*3/uL RBC 4.58 (4.20-5.50) X10*6/uL Hgb 13.2 (12.0-16.0) g/dl Hct 40.7 (37.0-47.0) % MCV 88.9 (80.0-98.0) fL MCH 28.8 (27.0-33.0) pg MCHC 32.4 (31.0-35.0) g/dl RDW 12.8 (11.0-16.0) % Plt Count 347 (160-400) X10*3/uL MPV 9.6 (9.4-12.3) fL Immature Gran % (Auto) 0.4 (0.0-0.4) % Neut % (Auto) 62.8 (45-73) % Lymph % (Auto) 27.4 (20-40) % [place] % (Auto) 7.3 (2-11) % Eos % (Auto) 1.5 (0-4) % Baso % (Auto) 0.6 (0-2) % Lymph # (Auto) 3.0 (1.2-4.9) X10*3/uL [place] # (Auto) 0.8 (0.1-1.2) X10*3/uL Eos # (Auto) 0.2 (0.0-0.4) X10*3/uL Baso # (Auto) 0.1 (0.0-0.2) X10*3/uL Abs Immat Gran (auto) 0.04 H (0.00-0.03) X10*3/uL Absolute Neuts (auto) 6.9 (2.0-8.3) x10*3/uL Absolute Nucleated RBC 0.000 (0.0-0.012) X10*3/uL Nucleated RBC % (auto) 0.0 (0.0-0.2) /100WBC Sodium 137 (135-145) mmol/L Potassium 3.6 (3.3-5.1) mmol/L Chloride 106 (96-108) mmol/L Carbon Dioxide 26 (22-29) mmol/L Anion Gap 9 L (12-20) BUN 11 (9-16) mg/dL Creatinine 0.67 (0.5-1.4) mg/dL Estim Creat Clear Calc 114.1 Estimated GFR > 60 Random Glucose 82 (60-115) mg/dL Calcium 8.8 D (8.4-10.2) mg/dL Magnesium 1.9 (1.6-2.6) mg/dL Total Bilirubin 0.2 (0.0-1.0) mg/dL AST 18 (5-31) U/L ALT 16 (0-31) U/L Alkaline Phosphatase 107 (39-117) U/L Total Protein 8.2 H (6.5-8.0) g/dL Albumin 4.0 (3.5-5.0) g/dL Lipase 16 (8-78) U/L Urine Color Yellow Urine Appearance Clear Urine pH 5.5 (5.0-9.0) Ur Specific [place] 1.025 (1.005-1.025) Urine Protein Negative (Neg-Trace) mg/dL Urine Glucose (UA) Negative (Negative) mg/dL Urine Ketones Negative (Negative) mg/dL Urine Blood Small (1+) H (Negative) Urine Nitrite Negative (Negative) Ur Leukocyte Esterase Negative (Negative) Urine RBC 6-10 H (0-2) /HPF Urine WBC 0-5 (0-5) /HPF Ur Squamous Epith Cells 0-2 (0-2) /HPF Urine Bacteria None Seen (None Seen) Hyaline Casts 0-2 (0-2) /LPF Urine Test NEGATIVE (NEGATIVE) Medications Administered Discontinued Medications Generic Name Dose Route Start Last Admin Trade Name Kourtney PRN Reason Stop Dose Admin Ketorolac Tromethamine 15 mg 04/12/24 21:45 04/12/24 22:13 Ketorolac Tromethamine 15 Mg/Ml Vial IM 04/12/24 21:46 15 mg ONCE ONE Administration Methocarbamol 750 mg 04/12/24 21:45 04/12/24 22:14 Methocarbamol 750 Mg Tablet PO 04/12/24 21:46 750 mg ONCE ONE Administration Discharge Plan Discharge Clinical Impression: Constipation, Lumbar strain Patient Disposition: Home, Self-Care Instructions: Constipation (ED), Low Back Strain (ED), Lower Back Exercises (ED) Additional Instructions: All of your labs were normal, the CT scan revealed a your constipated. I am also treating you for low back pain. See home care instructions. In regard to the pain, use the meloxicam as directed this is an anti-inflammatory. Use the methocarbamol as needed, this is a muscle relaxant, it will cause drowsiness do not drive or operate machinery while taking the medication. In regard to the constipation, start using an ihzn-cni-wlhjxqr stool softener such as Colace, twice daily. In addition use tdzh-qmr-ezppgdu MiraLax, 2 times a day, until you begin having normal regular bowel movements. Follow up with your primary care provider as needed. Prescriptions: New meloxicam 15 mg tablet 15 mg PO DAILY Qty: 7 0RF methocarbamol 750 mg tablet 750 mg PO Q8H PRN (Reason: pain, moderate) Qty: 10 0RF No Action ketorolac 10 mg tablet 10 mg PO Q6H PRN (Reason: pain) Qty: 20 0RF Rx Instructions: maximum total duration of 5 days from all oral, intranasal, or parenteral formulations tramadol 50 mg tablet 50 mg PO Q6H PRN (Reason: pain) Qty: 20 0RF tsvvogjxwt-qlgirfgiwpsqm-hres 50-325-40 mg tablet 1 tab PO Q6H PRN (Reason: haeadace) Qty: 20 0RF ondansetron 4 mg tablet,disintegrating 4 mg PO Q6-8H PRN (Reason: nausea and vomiting) Qty: 7 0RF risperidone 1 mg tablet 1 - 2 mg PO BEDTIME mirtazapine 15 mg tablet 15 mg PO BEDTIME mirtazapine 30 mg tablet 30 mg PO BEDTIME trazodone 100 mg tablet 200 mg PO BEDTIME PRN gabapentin 100 mg capsule 200 mg PO TID sertraline 100 mg tablet 200 mg PO DAILY Print Language: Venezuelan
[2024-04-12 17:47] LABS: MANUAL DIFF FLAG NO
[2024-04-12 17:57] LABS: Appearance Urine Clear; Color Urine Yellow; Glucose Urine UA Negative (Negative); Leukocyte Esterase Urine Negative (Negative); Nitrite Urine Negative (Negative); PH 5.5 (5.0-9.0); Specific Gravity - Urine 1.025 (1.005-1.025); UMIC TRIGGER UACC YES; Urine Blood Small (1+) (Negative); Urine Ketones Negative (Negative); Urine Protein Negative (Neg-Trace)
[2024-04-12 17:59] LABS: UPreg QC Valid YES; Urine Pregnancy NEGATIVE (NEGATIVE)
[2024-04-12 18:02] LABS: Bacteria Urine None Seen (None Seen); Hyaline Casts Urine 0-2 /LPF (0-2); Squamous Epithelial Cell Urine 0-2 /HPF (0-2); WBC Urine 0-5 /HPF (0-5)
[2024-04-12 18:10] LABS: Alanine Aminotransferase 16 U/L (0-31); Alkaline Phosphatase 107 U/L (39-117); Anion Gap 9 (12-20); Aspartate Amino Transferase 18 U/L (5-31); Bilirubin Total 0.2 mg/dL (0.0-1.0); Blood Urea Nitrogen 11 mg/dL (9-16); Calcium 8.8 mg/dL (8.4-10.2); Carbon Dioxide 26 mmol/L (22-29); Chloride 106 mmol/L (96-108); Creatinine Clr Calc Pharmacy 114.1; Estimated Glomerular Filt Rate > 60; Glucose Random 82 mg/dL (60-115); Lipase 16 U/L (8-78); Magnesium 1.9 mg/dL (1.6-2.6); Potassium 3.6 mmol/L (3.3-5.1); Sodium 137 mmol/L (135-145); Total Protein 8.2 g/dL (6.5-8.0)
[2024-04-12 18:19] LABS: Basophils Absolute Auto 0.1 X10*3/uL (0.0-0.2); Basophils Percent Auto 0.6 % (0-2); Eosinophils Absolute Auto 0.2 X10*3/uL (0.0-0.4); Eosinophils Percent Auto 1.5 % (0-4); Hematocrit 40.7 % (37.0-47.0); Hemoglobin 13.2 g/dl (12.0-16.0); Imm Gran Abs Auto 0.04 X10*3/uL (0.00-0.03); Imm Gran Pct Auto 0.4 % (0.0-0.4); Lymphocytes Percent Auto 27.4 % (20-40); Mean Corpuscular HGB Conc 32.4 g/dl (31.0-35.0); Mean Corpuscular Hemoglobin 28.8 pg (27.0-33.0); Mean Corpuscular Volume 88.9 fL (80.0-98.0); Mean Platelet Volume 9.6 fL (9.4-12.3); Monocytes Absolute Auto 0.8 X10*3/uL (0.1-1.2); Monocytes Percent Auto 7.3 % (2-11); Neutrophils Absolute Auto 6.9 x10*3/uL (2.0-8.3); Neutrophils Percent Auto 62.8 % (45-73); Platelet Count 347 X10*3/uL (160-400); Red Blood Count 4.58 X10*6/uL (4.20-5.50); Red Cell Distribution Width 12.8 % (11.0-16.0)
[2024-04-12 20:28] VITALS: BP 122/83; PULSE 85; RESP 18; TEMP 36.9; O2SAT 97
--- OUTSIDE RECORDS SUMMARY | 2024-04-12 21:44 | XMS_ITS | Clinical Summary ---
Author Organization [facility] Address [address] [place] [address] Care Team Providers Care Bottle House Quality Control Technician Name Role Phone Unavailable Primary Care Provider Unavailabl e Allergies Active Allergy Reactions Criticality Noted Date Comments Morphine Other (See Comments) 10/28/2020 Heart races Medications Medication Sig Dispensed Refills Start Date End Date Status doxycycline (VIBRAMYCIN) 100 MG capsule Take 1 capsule (100 mg total) by mouth 2 (two) times a day. 28 capsule 10/29/2020 Active metroNIDAZOLE (FLAGYL) 500 MG tablet Take 1 tablet (500 mg total) by mouth 3 (three) times a day. Take as directed or until you run out. 42 tablet 10/29/2020 Active polyethylene glycol (miraLAx) 17 g packet Take 1 packet (17 g total) by mouth 2 (two) times a day. 14 packet 10/29/2020 Active Social History Tobacco Use Types Packs/Day Years Used Date Smoking Tobacco: Never Smokeless Tobacco: Never Alcohol Use Standard Drinks/Week Comments Not Currently 0 (1 standard drink = 0.6 oz pur e alcohol) Sex and Gender Information Value Date Recorded Sex Assigned at Not on file Gender Identity Not on file Sexual Orientation Not on file Last Filed Vital Signs Vital Sign Reading Time Taken Comments Blood Pressure 111/56 10/28/2020 11:05 PM EDT Pulse 77 10/28/2020 11:05 PM EDT Temperature 37 ??C (98.6 ??F) 10/28/2020 11:05 PM EDT Respiratory Rate 18 10/28/2020 11:05 PM EDT Oxygen Saturation 99% 10/28/2020 11:05 PM EDT Inhaled Oxygen Concentration - - Weight 98.2 kg (216 lb 7.9 oz) 10/28/2020 3:06 P M EDT Height 157.5 cm (5' 2 ) 10/28/2020 3:06 PM EDT Body Mass Index 39.6 10/28/2020 3:06 PM EDT Plan of Treatment Health Maintenance Due Date Last Done Comments Hepatitis C Virus Screening 1978 HIV Screening 11/23/1991 DTaP/Tdap/Td Vaccines (1 - Tdap) 1997 Hepatitis B Vaccines (1 of 3 - 19+ 3-dose series) 1997 Pap Smear (Ages 21-65) 11/23/1999 Mammogram 2018 Influenza Vaccine 10/14/2023 COVID-19 Vaccine (1 - 2023-2 5 season) 2023 Colonoscopy 11/23/2023 HPV Vaccines Aged Out No longer eligi ble based on patient's age to complete this topic Pneumococcal Vaccine: Pediat elias (0-5 Years) and At-Risk Patients (6 to 49 Years) Aged Out No longer eligible b ased on patient's age to complete this topic
--- OUTSIDE RECORDS SUMMARY | 2024-04-12 21:44 | XMS_ITS | Encounter Summary ---
Author Organization [employer] Address [address] [facility] [address] [place] [address] Care Team Providers Care American Studies Professor Name Role Phone Netta Lang JENNIFER Primary Care Provider [phone] Encounter Details Date Type Department Care Team ([facility] st Contact Info) Description 04/12/2024 Orders Only GENERIC EXTERNAL DATA DEPARTMENT Provider, Generic External Data Social History Tobacco Use Types Packs/Day Years Used Date Smoking Tobacco: Never Smokeless Tobacco: Never Depression Answer Date Recorded Patient Health Questionnaire-9 Score 11 06/07/2023 Patient Health Questionnaire-9 Score 11 06/07/2023 Last PHQ-9: Questionnaire Data Not on file 0 06/07/2023 Housing Stability Answer Date Recorded What is your housing situation today? I have kina alejandre 01/11/[address] you li ve. Do you have problems with any of the following? None of the above 01/11/2023 Food Insecurity Answer Date Recorded Within the past 12 months, y ou worried that your food would run out before you got money to buy more: Not on file 06/10/2023 Within the past 12 months,th e food you bought just didn't last and you didn't have enough money to get more: Never True Transportation Answer Date Recorded In the past 12 months, has l ack of transportation kept you from medical appts, meetings, work or from getting things needed for daily living? No 01/11/2023 Utilities Answer Date Recorded In the past 12 months, has t he electric, gas, oil or water company threatened to shut off services in your home? Yes 06/07/2023 Depression Answer Date Recorded Patient Health Questionnaire-2 Score 2 06/07/2023 Comments Unknown Sex and Gender Information Value Date Recorded Sex Assigned at Female 01/12/2022 10:18 AM EDT Legal Sex Female 10:18 AM EDT Gender Identity Female 06/07/2023 7:20 AM EDT Sexual Orientation Choose not to disclose 2021 10:18 AM EDT documented as of this encounter Plan of Treatment Not on file documented as of this encounter Procedures Procedure Name Priority Date/Time Associated Diagnosis Comments URINALYSIS, COMPLETE, WITH REFLEX TO CULTURE Routine 04/12/2024 5:43 PM EST CBC WITH AUTO DIFFERENTIAL Routine 04/12/2024 5:43 PM EST HCG, QL, URINE Routine 04/12/2024 5:43 PM EST MAGNESIUM Routine 04/12/2024 5:43 PM EST LIPASE Routine 04/12/2024 5:43 PM EST COMPREHENSIVE METABOLIC PANEL Routine 04/12/2024 5:43 PM EST documented in this encounter Results * (ABNORMAL) CBC auto differential (04/12/2024 5:43 PM EST) White Blood Count 11.0(H) 4.8 - 10.8 X10*3/uL [facility] Red Blood Count 4.58 4.20 - 5.50 X10*6/uL [facility] Hemoglobin 13.2 12.0 - 16.0 g/dl [facility] Hematocrit 40.7 37.0 - 47.0 % [facility] Mean Corpuscular Volume 88.9 80.0 - 98.0 fL [facility] Mean Corpuscular Hemoglobin 28.8 27.0 - 33.0 pg [facility] Mean Corpuscular HGB Conc 32.4 31.0 - 35.0 g/dl [facility] Red Cell Distribution Width 12.8 11.0 - 16.0 % [facility] Platelet Count 347 160 - 400 X10*3/uL [facility] Mean Platelet Volume 9.6 9.4 - 12.3 fL [facility] Neutrophils Percent Auto 62.8 45 - 73 % [facility] Imm Gran Pct Auto 0.4 0.0 - 0.4 % [facility] Lymphocytes Percent Auto 27.4 20 - 40 % [facility] Monocytes Percent Auto 7.3 2 - 11 % [facility] Eosinophils Percent Auto 1.5 0 - 4 % [facility] Basophils Percent Auto 0.6 0 - 2 % [facility] NRBC Pct Auto 0.0 0.0 - 0.2 /100WBC [facility] Neutrophils Absolute Auto 6.9 2.0 - 8.3 x10*3/uL [facility] Imm Gran Abs Auto 0.04(H) 0.00 - 0.03 X10*3/uL [facility] Lymphocytes Absolute Auto 3.0 1.2 - 4.9 X10*3/uL [facility] Monocytes Absolute Auto 0.8 0.1 - 1.2 X10*3/uL [facility] Eosinophils Absolute Auto 0.2 0.0 - 0.4 X10*3/uL [facility] Basophils Absolute Auto 0.1 0.0 - 0.2 X10*3/uL [facility] NRBC Abs Auto 0.000 0.0 - 0.012 X10*3/uL [facility] 04/12/2024 5:43 PM EST 04/12/2024 5:46 PM EST us Generic External Data Provider LAB BLOOD ORDERAB LES Final Result [facility] [address], [place] [phone] * Lipase (04/12/2024 5:43 PM EST) Lipase 16 8 - 78 U/L [facility] 04/12/2024 5:43 PM EST 04/12/2024 5:46 PM EST us Generic External Data Provider LAB BLOOD ORDERAB LES Final Result Performing Organization Address [facility] Co de Phone Number [facility] [address] [place] [phone] * Magnesium (04/12/2024 5:43 PM EST) Magnesium 1.9 1.6 - 2.6 mg/dL [facility] 04/12/2024 5:43 PM EST 04/12/2024 5:46 PM EST Generic External Data Provider LAB BLOOD ORDERAB LES Final Result Performing Organization Address [facility] de Phone Number [facility] [address] [place] [phone] * (ABNORMAL) Comprehensive Metabolic Panel (04/12/2024 5:43 PM EST) Sodium 137 135 - 145 mmol/L [facility] Potassium 3.6 3.3 - 5.1 mmol/L [facility] Chloride 106 96 - 108 mmol/L [facility] Carbon Dioxide 26 22 - 29 mmol/L [facility] Anion Gap 9(L) 12 - 20 [facility] Urea Nitrogen (BUN) 11 9 - 16 mg/dL [facility] Creatinine, Serum 0.67 0.5 - 1.4 mg/dL [facility] Creatinine Clr Calc Pharmacy 114.1 [facility] Comment:Provided height and weight: 157.48 cm,95.254 kg.eGFR (calculated from the MDRD study equation) and eCrCl(calculated from the Cockcroft-Gault equation) are based ondifferent parameters and may not yield comparable results.If eCrCl result is absurd, please check patient'sheight/weight. Estimated Glomerular Filt Rate >60 [facility] Comment:Chronic Kidney Disea se: Estimated GFR < 60 mL/min/[id number] Kidney Disease: Estimated GFR < 15 mL/min/1.73m2 Glucose 82 60 - 115 mg/dL [facility] Calcium 8.8 8.4 - 10.2 mg/dL [facility] Bilirubin, Total 0.2 0.0 - 1.0 mg/dL [facility] Aspartate Amino Transferase 18 5 - 31 U/L [facility] Alanine Aminotransferase 16 0 - 31 U/L [facility] Total Protein 8.2(H) 6.5 - 8.0 g/dL [facility] Albumin Level 4.0 3.5 - 5.0 g/dL [facility] Alkaline Phosphatase 107 39 - 117 U/L [facility] 04/12/2024 5:43 PM EST 04/12/2024 5:46 PM EST Generic External Data Provider LAB BLOOD ORDERAB LES Final Result Performing Organization Address [facility]/ZIP Co de Phone Number [facility] [address] [place] [phone] * HCG, Qualitative, Urine (04/12/2024 5:43 PM EST) Urine NEGATIVE NEGATIVE [facility] Comment:This test was develo ped to detect early . Falsenegative results may occur after the 5th - 7th week ofpregnancy when using this test method. If clinicallyindicated, consider a serum hCG. 04/12/2024 5:43 PM EST 04/12/2024 5:59 PM EST us Generic External Data Provider LAB URINE ORDERAB LES Final Result Performing Organization Address [facility] Co de Phone Number [facility] [address] [place] [phone] * (ABNORMAL) Urinalysis, Complete, with Reflex to Culture (04/12/2024 5:43 PM EST) Color Urine Yellow [facility] Appearance Urine Clear [facility] PH 5.5 5.0 - 9.0 [facility] Glucose Urine UA Negative Negative mg/dL [facility] Urine Blood Small (1+)(A) Negative [facility] Specific [place] - Urine 1.025 1.005 - 1.025 [facility] Urine Protein Negative Neg-Trace mg/dL [facility] Urine Ketones Negative Negative mg/dL [facility] Nitrite Urine Negative Negative [facility] Leukocyte Esterase Urine Negative Negative [facility] RBC Urine 6-10(A) 0 - 2 /HPF [facility] Urine WBC 0-5 0 - 5 /HPF [facility] Urine Squamous Epithelial Cell 0-2 0 - 2 /HPF [facility] Urine Bacteria None Seen None Seen [facility] Hyaline Casts, Urine 0-2 0 - 2 /LPF [facility] 04/12/2024 5:43 PM EST 04/12/2024 5:46 PM EST Narrative [facility] - 04/12/2024 6:02 PM EST [id number], Clean Catch us Generic External Data Provider LAB URINE ORDERAB LES Final Result Performing Organization Address City/State/[facility] Co de Phone Number [facility] [address] [place] [phone] documented in this encounter Visit Diagnoses Not on filedocumented in this encounter Additional Health Concerns Assessment Noted Time PHQ-9 Depression Total Score: 11 024 1:28 PM EDT documented as of this encounter Care Teams American Studies Professor Relationship Specialty Start Date End Date Netta Lang FNP [address] [place] [address] PCP - General Family Medicine 11/04/21 documented as of this encounter
--- OUTSIDE RECORDS SUMMARY | 2024-04-12 21:44 | XMS_ITS | Encounter Summary ---
Author Organization [employer] Address [address] [facility] [address] [place] [address] Care Team Providers Care Improvement Nurse Name Role Phone Netta Lang JENNIFER Primary Care Provider [phone] Encounter Details Date Type Department Care Team ([facility] st Contact Info) Description 03/24/2024 Telephone C OPTOMETRY [address] [place], [place] [phone] Marylu Buitrago, OD [address] [place] [address] Social History Tobacco Use Types Packs/Day Years [...] on file documented as of this encounter Visit Diagnoses Not on filedocumented in this encounter Additional Health Concerns Assessment Noted Time PHQ-9 Depression Total Score: 11 024 1:28 PM EDT documented as of this encounter Care Teams Improvement Nurse Relationship Specialty Start Date End Date Netta Lang FNP [address] [place] [phone] PCP - General Family Medicine 11/04/21 documented as of this encounter
--- OUTSIDE RECORDS SUMMARY | 2024-04-12 21:45 | XMS_ITS | Clinical Summary ---
Author Organization [employer] Address [address] [facility] [address], [place] [address] Care Team Providers Care Outreach Representative Name Role Phone Netta Lang JENNIFER Primary Care Provider [phone] Allergies Active Allergy Reactions Criticality Noted Date Comments Morphine 10/28/2020 Other reaction(s): Other (See Comments) Heart races Medications hydrOXYzine HCl (Atarax) 25 MG tablet TAKE 1 TABLET BY MOUTH UP TO THREE TIMES DAILY NEEDED FOR ANXIETY. MAY CAUSE DROWSINESS 2 Active mirtazapine (Remeron) 30 MG tablet Take 30 mg by mouth at bedtime. 3 Active gabapentin (Neurontin) 100 MG capsule Take 200 mg by mouth 3 times daily. 3 Active polyethylene glycol, PEG, 3350 (Glycolax) 17 GM/SCOOP powder 2 Active risperiDONE (RisperDAL) 1 MG tablet TAKE 1 TO 2 TABLETS BY MOUTH AT BEDTIME FOR RACING THOUGHTS 3 Active sertraline (Zoloft) 100 MG tablet Take 200 mg by mouth in the morning. 3 Active traZODone (Desyrel) 100 MG tablet TAKE 2 TABLETS BY MOUTH AT BEDTIME NEEDED 3 Active Acetaminophen Extra Strength 500 MG tablet TAKE 1 OR 2 TABLETS BY MOUTH EVERY 6 HOURS NEEDED FEVER OR PAIN 60 tablet 2 4 Active Active Problems Problem Noted Date Diagnosed Date Stress incontinence 06/10/2023 Assessment & Plan (06/10/2023 4:41 PM EDT): Previously referred to UroGYN, denies any dysuria Check UA Gastroesophageal reflux disease without esophagi tis 06/07/2023 Assessment & Plan (06/10/2023 4:39 PM EDT): -Hx of GERD, included in referral to GI Healthcare maintenance 06/15/2022 Overview (06/10/2023): Pap: NILM, HPV Neg 10/23/21 Colonoscopy: referral to [facility] 06/07/23 Optometry: referral to [facility] placed 06/10/23 Assessment & Plan (06/10/2023 4:42 PM EDT): Lab work, including asymptomatic STI screening, ordered below Hemorrhagic cyst of ovary 10/25/2021 Overview (09/03/2023): Eval at [facility] ED in 2020 w/ abd/pelvis CT that demonstrated complex cyst of left ovary, likely hemorrhagic in nature. [facility] Visit - Dr. Escobedo for CT results 03/05/23: Abdomen US pelvis complete ordered by [facility] provider. Possible hemorrhagic cyst of the left ovary. Recommended repeat pelvic US in 6-12 weeks to assess for resolution. Repeat pelvic/TUVS placed 04/29/23 Referral to [facility] placed 06/07/23 08/31/23: [facility] Eval, diagnosed with suspected ruptured ovarian cyst Assessment & Plan (09/03/2023 12:20 PM EDT): Scheduled 09/08/23 at [facility] for follow up. Acute low back pain 04/14/2017 Headache 02/13/2015 Mixed anxiety and depressive disorder 01/26/2013 Assessment & Plan (06/10/2023 4:41 PM EDT): -Followed by psych team: -Ele therapist - clinic located in [place]. Visit frequency every other week -Psych provider: Danette Mark -Current medication regimen includes: Risperidone 1mg nightly Mirtazapine 30mg nightly Sertraline 100mg daily Trazodone 100mg nightly PRN Gabapentin 100mg TID Encounters Date Type Department Care Team Description 04/12/2024 Orders Only GENERIC EXTERNAL DATA DEPARTMENT Provider, Generic External Data 03/24/2024 Telephone [facility] [address] [place] [address] Marylu Buitrago OD 03/12/2024 Orders Only GENERIC EXTERNAL DATA DEPARTMENT Provider, Generic External Data 02/29/2024 Orders Only [facility] External Provider, [facility] 01/27/2024 Orders Only GENERIC EXTERNAL DATA DEPARTMENT Provider, Generic External Data from Last 3 Months Immunizations Name Administration Dates Next Due Influenza injectable quadriv alent IIV4 with preservative 04/08/2017,12/06/2014 Influenza injectable quadrivalent preservative f ree 02/28/2021,04/19/2018 Influenza, IIV3, injectable 01/11/2014 Influenza, Split (incl. purified surface antigen ) 01/26/2013,12/14/2011 TD (adult), 2 Lf tetanus tox oid, preservative free, adsorbed 02/28/2021 Tdap 06/11/2009 Family History Medical History Relation Name Comments Colon cancer Father Relation Name Status Comments Father Social History Tobacco Use Types Packs/Day Years Used Date Smoking Tobacco: Never Smokeless Tobacco: Never Tobacco Cessation:Counseling Given: Not Answered Depression Answer Date Recorded Patient Health Questionnaire-9 [...] not to disclose 2021 10:18 AM EDT Last Filed Vital Signs Vital Sign Reading Time Taken Comments Blood Pressure 119/71 09/03/2023 8:54 AM EDT Pulse 92 09/03/2023 8:54 AM EDT Temperature 37.1 ??C (98.8 ??F) 09/03/2023 8:54 AM ED T Respiratory Rate 16 09/03/2023 8:54 AM EDT Oxygen Saturation 99% 09/03/2023 8:54 AM EDT Inhaled Oxygen Concentration - - Weight 97.5 kg (215 lb) 09/03/2023 8:54 AM EDT Height 157.5 cm (5' 2 ) 09/03/2023 8:54 AM EDT Body Mass Index 39.32 09/03/2023 8:54 AM EDT Plan of Treatment Health Maintenance Due Date Last Done Comments CT Colonography 1978 Colonoscopy 1978 Colorectal Cancer Screening 1978 FIT DNA/Cologuard 1978 FIT 1978 FOBT 1978 Lipid Panel 1978 Sigmoidoscopy 1980 Family Planning (PISQ) 1993 Hepatitis C Screening 1996 Hepatitis B Vaccines (1 of 3 - 19+ 3-dose series) 1997 SDOH Screening 06/09/2023 06/08/2022 COVID-19 Vaccine ( season) 2023 03/24/2021, 08/05/2020, 07/08/2020 Influenza Vaccine (#1) 2023 , 04/19/2018, 04/08/2017, Additional history exists Depression Monitoring (PHQ-9) 12/08/2023 06/07/2023, 06/07/2023 Alcohol/Substance Use Screening 06/06/2024 06/07/2023 Depression Screening 06/06/2024 06/07/2023, 06/07/19 Tobacco Screening 09/02/2024 09/03/2023 Pap Smear 10/23/2024 10/23/2021 Mammogram 02/28/2025 02/29/2024 Cervical Cancer Screening 10/23/2026 HPV/Cotest 10/23/2026 10/23/2021 Zoster Vaccines (1 of 2) 2028 DTaP/Tdap/Td Vaccines (3 - Td or Tdap) 02/28/2031 02/28/2021, 06/11/2009 RSV Patients and Patients Aged 60 years or older (1 - 1-dose 75+ series) 2053 Pneumococcal Vaccine: Pediatrics (0 to 5 Years) and At-Risk Patients (6 to 49) Years) Aged Out 03/20/2011 No longer eligible based on patient's age to complete this topic HIV Screening Completed 11/27/2022 HIB Vaccines Aged Out No longer eligi ble based on patient's age to complete this topic HPV Vaccines Aged Out No longer eligi ble based on patient's age to complete this topic Hepatitis A Vaccines Aged Out No long er eligible based on patient's age to complete this topic IPV Vaccines Aged Out No longer eligi ble based on patient's age to complete this topic Meningococcal Vaccine Aged Out No melody ruthie eligible based on patient's age to complete this topic RSV under 20 months Aged Out No longe r eligible based on patient's age to complete this topic Rotavirus Vaccines Aged Out No longer eligible based on patient's age to complete this topic Procedures Procedure Name Priority Date/Time Associated Diagnosis Comments CBC WITH AUTO DIFFERENTIAL Routine 04/12/2024 5:43 PM EST LIPASE Routine 04/12/2024 5:43 PM EST MAGNESIUM Routine 04/12/2024 5:43 PM EST COMPREHENSIVE METABOLIC PANEL Routine 04/12/2024 5:43 PM EST HCG, QL, URINE Routine 04/12/2024 5:43 PM EST URINALYSIS, COMPLETE, WITH REFLEX TO CULTURE Routine 04/12/2024 5:[address] HEAD WO CONTRAST Routine 03/12/2024 6 :21 PM EST SED RATE BY MODIFIED WESTERGREN Routine 03/12/2024 5:30 PM EST HCG, TOTAL, QN Routine 03/12/2024 5:30 PM EST C-REACTIVE PROTEIN Routine 03/12/2024 5: 30 PM EST MAGNESIUM Routine 03/12/2024 5:30 PM EST COMPREHENSIVE METABOLIC PANEL Routine 03/12/2024 5:30 PM EST CBC WITH AUTO DIFFERENTIAL Routine 03/12/2024 5:30 PM EST SARS COV2/INFLUENZA A/B AND RSV RNA QL NAAT Routine 03/12/2024 5:30 PM EST BI MAMMOGRAM SCREENING TOMOSYNTHESIS BILATERAL Routine 02/29/2024 9:09 AM EST HEMATOXYLIN AND EOSIN STAIN Routine 01/27/2024 11:15 AM EST HIV ANTIBODY/ANTIGEN ([place] DPH) Routine 11/27/2022 12:07 PM EDT THINPREP IMAGING PAP AND HPV MRNA E6/E7, WITH CT/NG, TRICHOMONAS Routine 10/23/2021 2:55 PM EDT from Last 3 Months or Most Recently Relevant to Health Maintenance Results * (ABNORMAL) Urinalysis, Complete, with Reflex to Culture (04/12/2024 5:43 PM EST) Color Urine Yellow [facility] Appearance Urine Clear [facility] PH 5.5 5.0 - 9.0 [facility] Glucose Urine UA Negative Negative mg/dL [facility] Urine Blood Small (1+)(A) Negative [facility] Specific [place] - Urine 1.025 1.005 - 1.025 [facility] Urine Protein Negative Neg-Trace mg/dL [facility] Urine Ketones Negative Negative mg/dL [facility] Nitrite Urine Negative Negative [facility] Leukocyte Esterase Urine Negative Negative [facility] RBC Urine 6-10(A) 0 - 2 /HPF [facility] Urine WBC 0-5 0 - 5 /HPF [facility] Urine Squamous Epithelial Cell 0-2 0 - 2 /HPF [facility] Urine Bacteria None Seen None Seen [facility] Hyaline Casts, Urine 0-2 0 - 2 /LPF [facility] 04/12/2024 5:43 PM EST 04/12/2024 5:46 PM EST Narrative [facility] - 04/12/2024 6:02 PM EST [id number], Clean Catch us Generic External Data Provider LAB URINE ORDERAB LES Final Result [facility] [address] [place] [phone] * (ABNORMAL) CBC auto differential (04/12/2024 5:43 PM EST) Only the most recent of2 resultswithin the time period is included. White Blood Count 11.0(H) 4.8 - 10.8 X10*3/uL [facility] Red Blood Count 4.58 4.20 - 5.50 X10*6/uL [facility] Hemoglobin 13.2 12.0 - 16.0 g/dl [facility] Hematocrit 40.7 37.0 - 47.0 % [facility] Mean Corpuscular Volume 88.9 80.0 - 98.0 fL [facility] Mean Corpuscular Hemoglobin 28.8 27.0 - 33.0 pg [facility] Mean Corpuscular HGB Conc 32.4 31.0 - 35.0 g/dl [facility] Red Cell Distribution Width 12.8 11.0 - 16.0 % [facility] Platelet Count 347 160 - 400 X10*3/uL [facility] Mean Platelet Volume 9.6 9.4 - 12.3 fL [facility] Neutrophils Percent Auto 62.8 45 - 73 % [facility] Imm Gran Pct Auto 0.4 0.0 - 0.4 % [facility] Lymphocytes Percent Auto 27.4 20 - 40 % [facility] Monocytes Percent Auto 7.3 2 - 11 % [facility] Eosinophils Percent Auto 1.5 0 - 4 % [facility] Basophils Percent Auto 0.6 0 - 2 % [facility] NRBC Pct Auto 0.0 0.0 - 0.2 /100WBC [facility] Neutrophils Absolute Auto 6.9 2.0 - 8.3 x10*3/uL [facility] Imm Gran Abs Auto 0.04(H) 0.00 - 0.03 X10*3/uL [facility] Lymphocytes Absolute Auto 3.0 1.2 - 4.9 X10*3/uL [facility] Monocytes Absolute Auto 0.8 0.1 - 1.2 X10*3/uL [facility] Eosinophils Absolute Auto 0.2 0.0 - 0.4 X10*3/uL [facility] Basophils Absolute Auto 0.1 0.0 - 0.2 X10*3/uL [facility] NRBC Abs Auto 0.000 0.0 - 0.012 X10*3/uL [facility] 04/12/2024 5:43 PM EST 04/12/2024 5:46 PM EST us Generic External Data Provider LAB BLOOD ORDERAB LES Final Result [facility] [address] [place] [address] [phone] * HCG, Qualitative, Urine (04/12/2024 5:43 PM EST) Urine NEGATIVE NEGATIVE [facility] Comment:This test was develo ped to detect early . Falsenegative results may occur after the 5th - 7th week ofpregnancy when using this test method. If clinicallyindicated, consider a serum hCG. 04/12/2024 5:43 PM EST 04/12/2024 5:59 PM EST us Generic External Data Provider LAB URINE ORDERAB LES Final Result Performing Organization Address [facility]/ZIP Co de Phone Number [facility] [address] [place] [phone] * Magnesium (04/12/2024 5:43 PM EST) Only the most recent of2 resultswithin the time period is included. Magnesium 1.9 1.6 - 2.6 mg/dL [facility] 04/12/2024 5:43 PM EST 04/12/2024 5:46 PM EST Generic External Data Provider LAB BLOOD ORDERAB LES Final Result Performing Organization Address [facility] Co de Phone Number [facility] [address] [place] [phone] * Lipase (04/12/2024 5:43 PM EST) Lipase 16 8 - 78 U/L [facility] 04/12/2024 5:43 PM EST 04/12/2024 5:46 PM EST Generic External Data Provider LAB BLOOD ORDERAB LES Final Result Performing Organization Address [facility] Co de Phone Number [facility] [address] [place] [phone] * (ABNORMAL) Comprehensive Metabolic Panel (04/12/2024 5:43 PM EST) Only the most recent of2 resultswithin the time period is included. Sodium 137 135 - 145 mmol/L [facility] Potassium 3.6 3.3 - 5.1 mmol/L [facility] Chloride 106 96 - 108 mmol/L [facility] Carbon Dioxide 26 22 - 29 mmol/L [facility] Anion Gap 9(L) 12 - 20 [facility] Urea Nitrogen (BUN) 11 9 - 16 mg/dL [facility] Creatinine, Serum 0.67 0.5 - 1.4 mg/dL [facility] Creatinine Clr Calc Pharmacy 114.1 [facility] Comment:Provided height and weight: 157.48 cm,95.254 kg.eGFR (calculated from the MDRD study equation) and eCrCl(calculated from the Cockcroft-Gault equation) are based ondifferent parameters and may not yield comparable results.If eCrCl result is absurd, please check patient'sheight/weight. Estimated Glomerular Filt Rate >60 [facility] Comment:Chronic Kidney Disea se: Estimated GFR < 60 mL/min/1.15a3Fnamao Kidney Disease: Estimated GFR < 15 mL/min/1.73m2 Glucose 82 60 - 115 mg/dL [facility] Calcium 8.8 8.4 - 10.2 mg/dL [facility] Bilirubin, Total 0.2 0.0 - 1.0 mg/dL [facility] Aspartate Amino Transferase 18 5 - 31 U/L [facility] Alanine Aminotransferase 16 0 - 31 U/L [facility] Total Protein 8.2(H) 6.5 - 8.0 g/dL [facility] Albumin Level 4.0 3.5 - 5.0 g/dL [facility] Alkaline Phosphatase 107 39 - 117 U/L [facility] 04/12/2024 5:43 PM EST 04/12/2024 5:46 PM EST us Generic External Data Provider LAB BLOOD ORDERAB LES Final Result [facility] [address] [place] [phone] * CT Head w/o Contrast (03/12/2024 6:21 PM EST) Anatomical Region Laterality Modality Head, Neck Computed Tomogra phy 03/12/2024 6:21 PM EST Narrative 03/12/2024 6:22 PM EST ? [facility] ?[address] ?[place] [address] ? CT Scan Report ? Signed ? Patient: Salinas,Melissa ?MR#: [id number] ? : 1980 ?Acct:[id number] ? Age/Sex: 43 / F ?ADM Date: 03/12/24 ? Loc: HO.ED ? Attending Dr: ? Ordering Physician: Chiquita Trivedi ?? Date of Service: 03/12/24 ?? Procedure(s): CT head/brain wo IV con ?? Accession Number(s): [id number] ? cc: Netta Lang MARINE DRILLER; Chiquita Trivedi ? Report Number: ?? [id number]: Total DLP = ??704.00 mGy-cm ? CLINICAL HISTORY: L sided SCHMIDT x4d ? CT head without contrast ? Comparison: None ? Findings: ?? No acute hemorrhage. Basal ganglia calcifications. No extra-axial fluid ?? collection. No hydrocephalus, mass-effect or herniation. Wang-white ?? differentiation is maintained. White matter is within normal limits for ?? age. ? No acute orbital pathology. No acute soft tissue abnormality. No fracture. ?? The visualized paranasal sinuses are predominantly clear. The mastoid air ?? cells are clear. ? Impression: ?? No acute findings. ? This document has been electronically signed by: Deja Qiu MD ?? on 03/12/2024 18:21:09 ? Dictated By: ?Deja Corrigan MD ? Signed By: ?<Electronically signed by Deja Corrigan MD in OV> ? 03/12/24 1822 ? DD/ 1821 ? TD/TT: 03/12/24 182 ? Bag Turner: ? Procedure Note Reta, Image - 03/12/2024 [address] [place] [address] CT Scan Report Signed Patient: Melissa SalinasMR#: [id number] : 1980Acct:[id number] Age/Sex: 43 / FADM Date: 03/12/24 Loc: HO.ED Attending Dr: Ordering Physician: Chiquita Trivedi Date of Service: 03/12/24 Procedure(s): CT head/brain wo IV con Accession Number(s): [id number] cc: Netta Lang MARINE DRILLER; Chiquita Trivedi Report Number: [id number]: Total DLP = 704.00 mGy-cm CLINICAL HISTORY: L sided SCHMIDT x4d CT head without contrast Comparison: None Findings: No acute hemorrhage. Basal ganglia calcifications. No extra-axial fluid collection. No hydrocephalus, mass-effect or herniation. Wang-white differentiation is maintained. White matter is within normal limits for age. No acute orbital pathology. No acute soft tissue abnormality. No fracture. The visualized paranasal sinuses are predominantly clear. The mastoid air cells are clear. Impression: No acute findings. This document has been electronically signed by: Deja Qiu MD on 03/12/2024 18:21:09 Dictated By: Deja Corrigan MD Signed By: <Electronically signed by Deja Corrigan MD in OV> 03/12/241821 DD/ 20 TD/TT: 03/12/241820 Bag Turner: [facility] External Provider IMG CT PROCEDURES Edited Result - Final * SARS-CoV-2 RNA, Influenza A/B, and RSV RNA, Ql NAAT (03/12/2024 5:30 PM EST) Influenza A PCR NEGATIVE Negative [facility] Influenza B PCR NEGATIVE Negative [facility] Resp Syncy Virus RNA Qual PCR NEGATIVE Negative [facility] SARS COV2 PCR NEGATIVE Negative [facility] Comment:All test results mus t be correlated with clinical findings.Negative results do not preclude SARS-CoV2, influenza Avirus, influenza B virus and/or RSV infectionand should not be used as the sole basis for treatment orother patient management decisions. Negative results must becombined with clinical observations, patient history, andepidemiological information.This test has not been evaluated for monitoring treatment ofinfection.This test has been authorized by the FDA under an EmergencyUse Authorization (EUA) for use by authorized laboratories.Testing performed on the InvenQuery GeneXpert utilizingreal-time RT-PCR.All SARS CoV2 and positive influenza A/B results arereported to [facility]. 03/12/2024 5:30 PM EST 03/12/2024 5:36 PM EST Generic External Data Provider LAB MICROBIOLOGY - GENERAL ORDERABLES Final Result Performing Organization Address [facility] Co de Phone Number [facility] [address] [place] [phone] * (ABNORMAL) Sed Rate by Modified Westergren (03/12/2024 5:30 PM EST) Pathologist [facility] Erythrocyte Sedimentation Rate 24(H) 0 - 20 MM/HR [facility] Comment:Patients with polycy themia and many hemoglobin abnormalitiesmay have depressed sed rates whereas patients with anemiamay have elevated sed rates. 03/12/2024 5:30 PM EST 03/12/2024 5:36 PM EST Generic External Data Provider LAB BLOOD ORDERAB LES Final Result Performing Organization Address [facility] Co de Phone Number [facility] [address] [place] [phone] * (ABNORMAL) C-reactive Protein (03/12/2024 5:30 PM EST) Pathologist [facility] C Reactive Protein 0.72(H) < or = 0.50 mg/dL [facility] 03/12/2024 5:30 PM EST 03/12/2024 5:36 PM EST Generic External Data Provider LAB BLOOD ORDERAB LES Final Result Performing Organization Address City/[facility]/ZIP Co de Phone Number [facility] [address] [place] [phone] * hCG, Total, Quantitative (03/12/2024 5:30 PM EST) HCG Quantitative <2 mIU/mL [facility] Comment:Weeks post LMP Appro ximate hCG(Last Menstrual Period) Range (mIU/ml)3 - 4 weeks 9 - 1304 - 5 weeks 75 - 2,6005 - 6 weeks 850 - 20,8006 - 7 weeks 4000 - 100,2007 - 12 weeks 11,500 - 289,48962 - 16 weeks 18,300 - 137,83174 - 29 weeks (2nd trimester) 1,400 - 53,78976 - 41 weeks (3rd trimester) 940 - 60,000The [place] B- hCG assay is used for the early detection ofpregnancy; it cannot be used to diagnose any conditionunrelated to . If a B-hCG level is not supportedby the clinical evidence, results should be confirmed by analternative method (qualitative urine hCG, for example). 03/12/2024 5:30 PM EST 03/12/2024 5:36 PM EST Generic External Data Provider LAB BLOOD ORDERAB LES Final Result Performing Organization Address [facility]/ZIP Co de Phone Number [facility] [address] [place] [address] [phone] * BI Mammogram Screening Tomosynthesis Bilateral (02/29/2024 9:09 AM EST) Anatomical Region Laterality Modality Breast Bilateral Mammography 02/29/2024 9:09 AM EST Narrative 03/10/2024 10:40 AM EST ? [facility] ? [address] ?[place] [address] ? Mammography Report ? Signed ? Patient: Salinas,Melissa ?MR#: [id number] ? : 1980 ?Acct:[id number] ? Age/Sex: 43 / F ?ADM Date: 12/17/24 ? Loc: HO.MAMMO ? Attending Dr: David Cardozo MD ? Ordering Physician: David Cardozo MD ?Results: 1Negativ ?? e ? Date of Service: 02/29/24 ?Follow Up: 1 Year From Orig ?? inal Mammogram ? Procedure(s): MM tomosynthesis screening BI ?? Accession Number(s): [id number] ? cc: Netta Lang MARINE DRILLER; David Cardozo MD ? EXAMINATION: ?? MM SCREENING DIGITAL BREAST TOMOSYNTHESIS, BILATERAL ? CLINICAL INFORMATION: ? Screening. Asymptomatic. ? COMPARISON: ?? Mammography: Baseline. ? TECHNIQUE: ?? Digital breast mammography with tomosynthesis is performed in both the ?? craniocaudal and mediolateral oblique views along with computer-aided ?? detection (CAD). ? FINDINGS: ?? The breasts are heterogeneously dense, which may obscure small masses ?? (ACR BI-RADS breast composition Category c). ? There are no significant masses, abnormal calcifications, or other ?? abnormalities. ? MM/MM tomosynthesis screening BI ?? IMPRESSION: ?? No mammographic evidence of malignancy. ? ASSESSMENT: ? BI-RADS BI-RADS 1 - Negative ? RECOMMENDATION: ?? Routine annual mammography screening. ? 1 year F/U ? This examination should not preclude the clinical evaluation of a ?? suspicious palpable abnormality. ? This patient's information was entered into a reminder system with a ?? target due date for their next mammogram. ? Electronically signed by: ??Jacquie Millan DO ??03/10/2024 10:37 AM EST ?? RP ? Dictated By: ?Jacquie Millan DO ? Signed By: ?<Electronically signed by Jacquie Millan, DO in OV> ? 03/10/ 1037 ? DD/ 0909 ? TD/TT: 02/29/24 0924 ? Bag Turner: ? Procedure Note Donotuseinterpreter, [facility] - [facility] [address] [place], [place] [address] Mammography Report Signed Patient: Melissa SalinasMR#: [id number] : 1980Acct:[id number] Age/Sex: 43 / FADM Date: 02/29/24 Loc: HO.MAMMO Attending Dr: David Cardozo MD Ordering Physician: David Cardozo MDResults: 1Negativ e Date of Service: 02/29/24Follow Up: 1 Year From Orig inal Mammogram Procedure(s): MM tomosynthesis screening BI Accession Number(s): [id number] cc: Netta Lang; David Cardozo MD EXAMINATION: MM SCREENING DIGITAL BREAST TOMOSYNTHESIS, BILATERAL CLINICAL INFORMATION: Screening. Asymptomatic. COMPARISON: Mammography: Baseline. TECHNIQUE: Digital breast mammography with tomosynthesis is performed in both the craniocaudal and mediolateral oblique views along with computer-aided detection (CAD). FINDINGS: The breasts are heterogeneously dense, which may obscure small masses (ACR BI-RADS breast composition Category c). There are no significant masses, abnormal calcifications, or other abnormalities. MM/MM tomosynthesis screening BI IMPRESSION: No mammographic evidence of malignancy. ASSESSMENT: BI-RADS BI-RADS 1 - Negative RECOMMENDATION: Routine annual mammography screening. 1 year F/U This examination should not preclude the clinical evaluation of a suspicious palpable abnormality. This patient's information was entered into a reminder system with a target due date for their next mammogram. Electronically signed by: Jacquie Millan DO 03/10/2024 10:37 AM EST RP Dictated By: Jacquie Millan DO Signed By: <Electronically signed by Jacquie Millan DO in OV> 03/10/24 1037 DD/ 8 TD/TT: 02/29/24923 Bag Turner: [facility] External Provider IMG BI PROCEDURES Final Result * Hematoxylin and Eosin Stain (01/27/2024 11:15 AM EST) 01/27/2024 11:1 5 AM EST 01/27/2024 2:00 PM EST [facility] LABS - 01/28/2024 4:47 PM EST ----- ------- Name: Melissa Salinas ? Age/Sex: 43/F ? : 1980 Unit#: [id number] ?? Attend Dr: David Cardozo MD ?Re01/27/24 ?Status: DEP REF ? Location: HO.LNP ?Disch: ? ----- ------- SPEC : [id number] ? RECD: 01/27/24-1400 ? STATUS: ??SOUT ? REQ NUM: [id number] ? CHIP: 01/27/241115 ? SUBM DR: David Cardozo MD ? ENTERED: ??01/27/24 ?SP TYPE: Surgical ? OTHR DR: Netta Lang ? ORDERED: ??HE Stain/2, Gross Micro L4 ? Diagnosis ?? Endometrium, biopsy: ??Secretory endometrium; negative for atypia, hyperplasia or ?? malignancy. ?Clinical History AUB ?Microscopic Description Microscopic sections reviewed. ? Material Received ?? EMB ? Gross Description Received in formalin labeled ?EMB? are fragments of red-pink and pink kay soft tissue mixed with mucus and clotted blood forming an aggregate measuring 3.2 x 2.7 x 0.3 cm in greatest dimension which is wrapped in lens paper and entirely submitted for microscopic examination, multiple pieces in cassettes A1 and A2. [facility] Copies To: ?? Netta Lang ?? [address] ?? [place] [address] ?? [phone] ?? David Cardozo MD ?? [facility] ?? [address] [facility] [address] ?? [place] [address] ?? [phone] ----- ------- Signed (signature on file) Marianna Emmanuel MD 01/28/24 [id number] ? ----- ------- ? END OF REPORT ? us Generic External Data Provider LAB BLOOD ORDERAB LES Final Result [facility] [address] [place] [phone] * HIV Ab/Ag ([facility]) (11/27/2022 12:07 PM EDT) [facility] HIV AB/AG Nonreactive Nonreactive [facility] Comment:HIV-1 p24 Ag and/or HIV-1/HIV-2 Ab not detected.A test result that is nonreactive does not exclude thepossibility of exposure to or infection with HIV-1 and/orHIV-2. Nonreactive results in this assay for individualswith prior exposure to HIV-1 and/or HIV-2 may be due toantigen and antibody levels that are below the limit ofdetection of this assay.The [employer] HIV Ag/Ab Combo assay result andsupplemental assay results should be interpreted inconjunction with the patient's clinical presentation,history and other laboratory results. If the results areinconsistent with clinical evidence, additional testing issuggested to confirm the result. 11/27/2022 12:0 7 PM EDT 11/27/2022 2:48 PM EDT us Vanessa Fitzgerald [employer] LAB BLOOD ORDERABLES Final Result [facility] [address] [place] [phone] * THINPREP TIS PAP AND HPV mRNA E6/E7, CT/NG, TRICH (10/23/2021 2:55 PM EDT) Chlamydia trachomatis RNA, TMA, Urogenital NOT DETECTED NOT DETECTED [facility] Clinical Information: None given [facility] COMMENT SEE COMMENT [facility] Comment: The analytical performance characteristics of this assay, when used to test SurePath(TM) specimens have been determined by [employer]. The modifications have not been cleared or approved by the FDA. This assay has been validated pursuant to the CLIA regulations and is used for clinical purposes. ?? For additional information, please refer to https://education.[employer]/faq/VTK149 (This link is being provided for information/ educational purposes only.) ?? COMMENT SEE COMMENT [facility] Comment: EXPLANATORY NOTE: ? The Pap is a screening test for cervical cancer. It is ?? not a diagnostic test and is subject to false negative ?? and false positive results. It is most reliable when a ?? satisfactory sample, regularly obtained, is submitted ?? with relevant clinical findings and history, and when ?? the Pap result is evaluated along with historic and ?? current clinical information. ?? COMMENT: This Pap test has been evaluated with computer assisted technology. [employer] [facility] Peritoneal Dialysis Registered Nurse: SEE COMMENT [facility] Comment: SXA, CT(ASCP) CT screening location: [address] ??[address] HPV nRNA E6/E7 Not Detected Not Detected [facility] Comment: Methodology: Independent Living Specialist-Mediated Amplification This assay detects E6/E7 viral messenger RNA (mRNA) from 14 high-risk HPV types (16,18,31,33,35,39,45,51,52,56,58,59,66,68). ? Cervical sources are required for HPV testing. If a vaginal source from a patient who has had a total hysterectomy with removal of cervix was ?? submitted, please contact the testing laboratory for alternative testing options. ?? For additional information, please refer to http://[employer]/faq/ZEX751b1 (This link if provided for information/ educational purposes only.) Interpretation/Re sult: Negative for intraepithelial lesion or malignancy. [facility] LMP: NONE GIVEN [facility] Neisseria gonorrhoeae RNA, TMA, Urogenital NOT DETECTED NOT DETECTED [facility] Prev. BX: NONE GIVEN [facility] Prev. PAP: NONE GIVEN [facility] SOURCE: None given [facility] Statement Of Adequacy: SEE COMMENT [facility] Comment: Satisfactory for evaluation. Endocervical/transformation zone component present. Age and/or menstrual status not provided Trichomonas vaginalis, QL, TMA, PAP Vial NOT DETECTED NOT DETECTED [facility] Comment: The analytical performance characteristics of this assay have been determined by [employer]. The modifications have not been cleared or approved by the FDA. This assay has been validated pursuant to the CLIA regulations and is used for clinical purposes. ?? For additional information, please refer to http://[employer]/ faq/Trichomonastma (This link is being provided for information/ educational purposes only.) ?? 10/23/2021 2:55 PM EDT us Marylu West NP LAB PATHOLOGY ORDERABLES Final Result [facility] [address] from Last 3 Months or Most Recently Relevant to Health Maintenance Insurance [address] [address] [address] C3 Care Teams Outreach Representative Relationship Specialty Start Date End Date Netta Lang FNP [address] [place] [phone] PCP - General Family Medicine 11/04/21
--- OUTSIDE RECORDS SUMMARY | 2024-04-12 21:45 | XMS_ITS | Clinical Summary ---
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 Name Role Phone Unavailable Primary Care Provider Unavailabl e Social History Tobacco Use Types Packs/Day Years Used Date Smoking Tobacco: Never Assessed Sex and Gender Information Value Date Recorded Sex Assigned at Not on file Gender Identity Not on file Sexual Orientation Not on file Plan of Treatment Health Maintenance Due Date Last Done Comments Breast Cancer Screening 1980 DTaP,Tdap,and Td Vaccines (1 - Tdap) 1997 Hepatitis B Vaccines (1 of 3 - 19+ 3-dose series) 1997 Cervical Cancer Screening: P ap Smear 11/23/1999 COVID-19 Vaccine (2023-2 5 season) 2023 Influenza Vaccine (#1) 2023 HIB Vaccines Aged Out No longer eligi [...] on patient's age to complete this topic MMR Vaccines Aged Out No longer eligi ble based on patient's age to complete this topic Meningococcal ACWY Vaccine Aged Out N o longer eligible based on patient's age to complete this topic Pneumococcal Vaccine: Pediat rics (0 to 5 Years) and At-Risk Patients (6 to 64 Years) Aged Out No longer eligible b ased on patient's age to complete this topic RSV Immunization Patients Un donald 20 months Aged Out No longer eligible b ased on patient's age to complete this topic Varicella Vaccines Aged Out No longer eligible based on patient's age to complete this topic
[2024-04-12] MEDS: Ketorolac Tromethamine 15 MG/ML VIAL IM (22:13)
[2024-04-12] MEDS: methocarbamoL 750 MG TABLET PO (22:14)
[2024-04-13 00:10] VITALS: BP 100/47; PULSE 81; RESP 16; TEMP 36.5; O2SAT 99
== END 2024-04-13 00:11 | disposition home or self-care (01) ==
PROVIDERS: Physician Assistant Medical; Emergency Provider Emergency Medicine
DX: S39.012A Strain of muscle, fascia and tendon of lower back, initial encounter (principal); K59.00 Constipation, unspecified; R10.2 Pelvic and perineal pain; X58.XXXA Exposure to other specified factors, initial encounter; Y93.9 Activity, unspecified; Y92.9 Unspecified place or not applicable; Y99.8 Other external cause status; Z79.899 Other long term (current) drug therapy
CPT/HCPCS: 36415; 74176; 80053; 81001; 81025; 83690; 83735; 85025; 96372; 99283; 99284; J1885

== ENCOUNTER → 2024-04-12 21:45 | Outpatient (BNV) | payer MEDICAID, SELFPAY | PROVIDERS: Emergency Provider Emergency Medicine; Visit Provider Radiology Diagnostic Radiology | DX: R10.9 Unspecified abdominal pain (principal) | CPT/HCPCS: 74176 ==

== ENCOUNTER 2024-04-14 14:02 | Outpatient (REF) | payer MEDICAID, SELFPAY ==
--- OUTSIDE RECORDS SUMMARY | 2024-04-14 14:04 | XMS_ITS | Clinical Summary ---
Author Organization [facility] Address [address] [place] [address] Care Team Providers Care Transaction Advisory Services Manager Name Role Phone Unavailable Primary Care Provider [...]
--- OUTSIDE RECORDS SUMMARY | 2024-04-14 14:04 | XMS_ITS | Clinical Summary ---
Author Organization [employer] Address [address] [facility] [address] [place] [address] Care Team Providers Care Senior Sql Database Developer Name Role Phone Netta Lang JENNIFER Primary Care Provider [phone] Allergies Active Allergy Reactions Criticality Noted Date Comments Morphine 10/28/2020 Other reaction(s): Other (See Comments) Heart races Medications hydrOXYzine HCl (Atarax) 25 MG tablet TAKE 1 TABLET BY MOUTH UP TO THREE TIMES DAILY NEEDED FOR ANXIETY. MAY CAUSE DROWSINESS 10/28/19 22 Active mirtazapine (Remeron) 30 MG tablet Take 30 mg by mouth at bedtime. 03/26/19 23 Active gabapentin (Neurontin) 100 MG capsule Take 200 mg by mouth 3 times daily. 03/26/19 23 Active risperiDONE (RisperDAL) 1 MG tablet TAKE 1 TO 2 TABLETS BY MOUTH AT BEDTIME FOR RACING THOUGHTS 03/26/19 23 Active sertraline (Zoloft) 100 MG tablet Take 200 mg by mouth in the morning. 03/26/19 23 Active traZODone (Desyrel) 100 MG tablet TAKE 2 TABLETS BY MOUTH AT BEDTIME NEEDED 03/26/19 23 Active Acetaminophen Extra Strength 500 MG tablet TAKE 1 OR 2 TABLETS BY MOUTH EVERY 6 HOURS NEEDED FEVER OR PAIN 60 tablet 2 06/08/19 24 Active polyethylene glycol, PEG, 3350 (MiraLax) 17 GM/SCOOP powder Mix 1 capful of powder with 8 ounces of beverage (water, juice). Drink within 15 minutes of mixing. 238 g 04/14/19 25 Active polyethylene glycol, PEG, 3350 (Glycolax) 17 GM/SCOOP powder Take 17 g by mouth if needed each day (constipation ). 238 g 04/14/19 025 Active amoxicillin-cl avulanate (Augmentin) 875-125 MG tablet Take 1 tablet by mouth 3 times daily for 10 days. 30 tablet 04/14/19 025 Active polyethylene glycol, PEG, 3350 (Glycolax) 17 GM/SCOOP powder 01/17/20 025 Discontinued(Re order (will not trigger notification to Pharmacy)) Active Problems Problem Noted Date Diagnosed Date Lower abdominal pain 04/14/2024 Assessment & Plan (04/14/2024 9:32 AM EST): Probably related to constipation, CT scan of abdomen and pelvis is normal on April 12. Will prescribe MiraLAX and Cipro plus Flagyl x 10 days for ?diverticulitis. Order labs and follow-up results Increase p.o. fluid intake, go to ED if she develops fever, worsening abdominal pain, rectal bleeding, and vomiting. I will order UA and vaginal swab in view of vaginal discharge which has benign features Other microscopic hematuria 04/14/2024 Assessment & Plan (04/14/2024 11:35 AM EST): CT scan abd/pelvis recently ro'd kidney stone. Order Urine Cytology and fu w PCP Stress incontinence 06/10/2023 Assessment & Plan (06/10/2023 4:41 PM EDT): Previously referred to UroGYN, denies any dysuria Check UA Gastroesophageal reflux disease without esophagi tis 06/07/2023 Assessment & Plan (06/10/2023 4:39 PM EDT): -Hx of GERD, included in referral to GI Healthcare maintenance 06/15/2022 Overview (06/10/2023): Pap: NILM, HPV Neg 10/23/21 Colonoscopy: referral to [facility] 06/07/23 Optometry: referral to [facility] placed 06/10/23 Assessment & Plan (06/10/2023 4:42 PM EDT): Lab work, including asymptomatic STI screening, ordered below Hemorrhagic cyst of ovary 10/25/2021 Overview (09/03/2023): Eval at [facility] ED in 2020 w/ abd/pelvis CT that demonstrated complex cyst of left ovary, likely hemorrhagic in nature. 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 Escobedo for CT results 03/05/23: Abdomen US pelvis complete ordered by [facility] provider. Possible hemorrhagic cyst of the left ovary. Recommended repeat pelvic US in 6-12 weeks to assess for resolution. Repeat pelvic/TUVS placed 04/29/23 Referral to [employer]WE[employer] PRODUCTION MACHINE OPERATOR placed 06/07/23 08/31/23: [facility], diagnosed with suspected ruptured ovarian cyst Assessment & Plan (09/03/2023 12:20 PM EDT): Scheduled 09/08/23 at [facility] for follow up. Acute low back pain 04/14/2017 Headache 02/13/2015 Mixed anxiety and depressive disorder 01/26/2013 Assessment & Plan (06/10/2023 4:41 PM EDT): -Followed by psych team: -Ele therapist - clinic located in [place]. Visit frequency every other week -Psych provider: Danette Mark -Current medication regimen includes: Risperidone 1mg nightly Mirtazapine 30mg nightly Sertraline 100mg daily Trazodone 100mg nightly PRN Gabapentin 100mg TID Encounters Date Type Department Care Team Description 04/14/2024 9:20 AM EST Office Visit [facility] [address] [place] [address] Monique Honeycutt MD Lower abdominal pain (Primary Dx); Other microscopic hematuria 04/13/2024 Telephone [facility] [address] [place] [address] Netta Lang FNP ER Follow-up 04/12/2024 Orders Only GENERIC EXTERNAL DATA DEPARTMENT Provider, Generic External Data 03/24/2024 Telephone [facility] [address] [place] [address] Marylu Buitrago OD 03/12/2024 Orders Only GENERIC EXTERNAL DATA DEPARTMENT Provider, Generic External Data 02/29/2024 Orders Only [facility] External Provider, [facility] 01/27/2024 Orders Only GENERIC EXTERNAL DATA [...] Sign Reading Time Taken Comments Blood Pressure 127/79 04/14/2024 9:03 AM EST Pulse 77 04/14/2024 9:03 AM EST Temperature 36.6 ??C (97.8 ??F) 04/14/2024 9:03 AM ES T Respiratory Rate 17 04/14/2024 9:03 AM EST Oxygen Saturation 98% 04/14/2024 9:03 AM EST Inhaled Oxygen Concentration - - Weight 104 kg (228 lb 12.8 oz) 04/14/2024 9:03 A M EST Height 157.5 cm (5' 2 ) 09/03/2023 8:54 AM EDT Body Mass Index 41.85 09/03/2023 8:54 AM EDT Plan of Treatment [...] 06/06/2024 06/07/2023 Depression Screening 06/06/2024 06/07/2023, 06/07/19 24 Tobacco Screening 09/02/2024 09/03/2023 Pap Smear 10/23/2024 [...] Procedure Name Priority Date/Time Associated Diagnosis Comments POCT URINALYSIS DIPSTICK Routine 04/14/2024 9:34 AM EST Lower abdominal pain CT ABDOMEN PELVIS WO CONTRAST Routine 04/12/2024 10:43 PM EST CBC WITH AUTO DIFFERENTIAL Routine [...] Relevant to Health Maintenance Results * (ABNORMAL) POCT urinalysis dipstick manually resulted (04/14/2024 9:34 AM EST) Color, UA Yellow Clarity, UA Clear Glucose, UA Negative Bilirubin, UA Negative Ketones, UA Positive Comment:trace Spec Grav, UA 1.030 Blood, UA Positive(A) Negative, None Detected Comment:trace-intact pH, UA 5.5 Protein, UA Negative Urobilinogen, UA 0.2 Leukocytes, UA Negative Negative, Rare, Trace Nitrite, UA Negative Negative, None Detected Urine 04/14/2024 9:34 AM EST us Monique Honeycutt MD POINT OF CARE TEST ENTER /EDIT ORDERABLES Final Result * CT Abdomen Pelvis w/o Contrast (04/12/2024 10:43 PM EST) Anatomical Region Laterality Modality Body, Pelvis, Abdomen Computed T omography 04/12/2024 10:4 3 PM EST Narrative 04/12/2024 10:44 PM EST ? [facility] ?[address] ?[place] [address] ? CT Scan Report ? Signed ? Patient: Melissa Salinas ?MR#: [id number] ? : 1980 ?Acct:[id number] ? Age/Sex: 43 / F ?ADM Date: 04/12/24 ? Loc: HO.ED ? Attending Dr: ? Ordering Physician: Nevin Morrison ?? Date of Service: 04/12/24 ?? Procedure(s): CT abdomen pelvis wo IV con ?? Accession Number(s): [id number] ? cc: Nevin Morrison; [facility] ? Report Number: ?? [id number]: Total DLP = ??746.00 mGy-cm ? CLINICAL HISTORY: right flank pain ? CT abdomen and pelvis without contrast ? Comparison: CT/NM/SR - CT ABDOMEN PELVIS WO IV CON - 08/31/23 13:38 EDT ? Findings: ? Lung bases clear. ?? Cholecystectomy. No abnormal biliary ductal dilatation. ?? No significant abnormality of the liver, pancreas, spleen, or adrenal ?? glands. ?? Unremarkable kidneys, ureters, and urinary bladder. ?? Ovaries and uterus are normal. ?? Normal stomach, small bowel, appendix, and colon. ?? No aortic aneurysm. ?? Bones intact. ?? IMPRESSION: ?? No acute findings. ? This document has been electronically signed by: Rm Mcwilliams MD on ?? 04/12/2024 22:43:00 ? Dictated By: ?Rm Mcwilliams MD ? Signed By: ?<Electronically signed by mR Mcwilliams MD in OV> ? 04/12/242242 ? DD/ 42 ? TD/TT: 04/12/242242 ? Special Needs Babysitter: ? Procedure Note Donotuseinterpreter, Image - 04/12/[address] [address] [address] Scan Report Signed Patient: Melissa SalinasMR#: [id number] : 1980Acct:[id number] Age/Sex: 43 / FADM Date: 04/12/24 Loc: HO.ED Attending Dr: Ordering Physician: Nevin Morrison Date of Service: 04/12/24 Procedure(s): CT abdomen pelvis wo IV con Accession Number(s): [id number] cc: Nevin Morrison; [facility] Report Number: [id number]: Total DLP = 746.00 mGy-cm CLINICAL HISTORY: right flank pain CT abdomen and pelvis without contrast Comparison: CT/NM/SR - CT ABDOMEN PELVIS WO IV CON - 08/31/23 13:38 EDT Findings: Lung bases clear. Cholecystectomy. No abnormal biliary ductal dilatation. No significant abnormality of the liver, pancreas, spleen, or adrenal glands. Unremarkable kidneys, ureters, and urinary bladder. Ovaries and uterus are normal. Normal stomach, small bowel, appendix, and colon. No aortic aneurysm. Bones intact. IMPRESSION: No acute findings. This document has been electronically signed by: Rm Mcwilliams MD on 04/12/2024 22:43:00 Dictated By: Rm Mcwilliams MD Signed By: <Electronically signed by Rm Mcwilliams MD in OV> 04/12/242242 DD/ 42 TD/TT: 04/12/242242 Special Needs Babysitter: [facility] External Provider IMG CT PROCEDURES Final Result * (ABNORMAL) Urinalysis, Complete, with Reflex to Culture (04/12/2024 5:43 PM EST) Color Urine Yellow [facility] Appearance Urine Clear [facility] PH 5.5 5.0 - 9.0 [facility] Glucose Urine UA Negative Negative mg/dL [facility] Urine Blood Small (1+)(A) Negative [facility] Specific [place] - Urine 1.025 1.005 - 1.025 [facility] Urine Protein Negative Neg-Trace mg/dL [facility] Urine Ketones Negative Negative mg/dL [facility] Nitrite Urine Negative Negative [facility] Leukocyte Esterase Urine Negative Negative [facility] RBC Urine 6-10(A) 0 - 2 /HPF [facility] Urine WBC 0-5 0 - 5 /HPF [facility] Urine Squamous Epithelial Cell 0-2 0 - 2 /HPF [facility] Urine Bacteria None Seen None Seen [facility] Hyaline Casts, Urine 0-2 0 - 2 /LPF [facility] 04/12/2024 5:43 PM EST 04/12/2024 5:46 PM EST Narrative [facility] - 04/12/2024 6:02 PM EST [id number], Clean Catch us Generic External Data Provider LAB URINE ORDERAB LES Final Result [facility] [address] [place] [phone] * (ABNORMAL) CBC auto differential (04/12/2024 5:43 PM EST) Only the most recent of2 resultswithin the time period is included. White Blood Count 11.0(H) 4.8 - 10.8 X10*3/uL [facility] Red Blood Count 4.58 4.20 - 5.50 X10*6/uL [facility] Hemoglobin 13.2 12.0 - 16.0 g/dl [facility] Hematocrit 40.7 37.0 - 47.0 % [facility] Mean Corpuscular Volume 88.9 80.0 - 98.0 fL [facility] Mean Corpuscular Hemoglobin 28.8 27.0 - 33.0 pg [facility] Mean Corpuscular HGB Conc 32.4 31.0 - 35.0 g/dl [facility] Red Cell Distribution Width 12.8 11.0 - 16.0 % [facility] Platelet Count 347 160 - 400 X10*3/uL [facility] Mean Platelet Volume 9.6 9.4 - 12.3 fL [facility] Neutrophils Percent Auto 62.8 45 - 73 % [facility] Imm Gran Pct Auto 0.4 0.0 - 0.4 % [facility] Lymphocytes Percent Auto 27.4 20 - 40 % [facility] Monocytes Percent Auto 7.3 2 - 11 % [facility] Eosinophils Percent Auto 1.5 0 - 4 % [facility] Basophils Percent Auto 0.6 0 - 2 % [facility] NRBC Pct Auto 0.0 0.0 - 0.2 /100WBC [facility] Neutrophils Absolute Auto 6.9 2.0 - 8.3 x10*3/uL [facility] Imm Gran Abs Auto 0.04(H) 0.00 - 0.03 X10*3/uL [facility] Lymphocytes Absolute Auto 3.0 1.2 - 4.9 X10*3/uL [facility] Monocytes Absolute Auto 0.8 0.1 - 1.2 X10*3/uL [facility] Eosinophils Absolute Auto 0.2 0.0 - 0.4 X10*3/uL [facility] Basophils Absolute Auto 0.1 0.0 - 0.2 X10*3/uL [facility] NRBC Abs Auto 0.000 0.0 - 0.012 X10*3/uL [facility] 04/12/2024 5:43 PM EST 04/12/2024 5:46 PM EST us Generic External Data Provider LAB BLOOD ORDERAB LES Final Result Performing Organization Address [facility] de Phone Number [facility] [address] [place] [phone] * HCG, Qualitative, Urine (04/12/2024 5:43 PM EST) Urine NEGATIVE NEGATIVE [facility] Comment:This test was develo ped to detect early . Falsenegative results may occur after the 5th - 7th week ofpregnancy when using this test method. If clinicallyindicated, consider a serum hCG. 04/12/2024 5:43 PM EST 04/12/2024 5:59 PM EST us Generic External Data Provider LAB URINE ORDERAB LES Final Result Performing Organization Address [facility] Number [facility] [address] [place] [phone] * Magnesium (04/12/2024 5:43 PM EST) Only the most recent of2 resultswithin the time period is included. Magnesium 1.9 1.6 - 2.6 mg/dL [facility] 04/12/2024 5:43 PM EST 04/12/2024 5:46 PM EST us Generic External Data Provider LAB BLOOD ORDERAB LES Final Result Performing Organization Address [facility] de Phone Number [facility] [address] [place] [phone] * Lipase (04/12/2024 5:43 PM EST) Lipase 16 8 - 78 U/L [facility] 04/12/2024 5:43 PM EST 04/12/2024 5:46 PM EST us Generic External Data Provider LAB BLOOD ORDERAB LES Final Result [facility] [address] [place] [phone] * (ABNORMAL) Comprehensive Metabolic Panel (04/12/2024 5:43 PM EST) Only the most recent of2 resultswithin the time period is included. Sodium 137 135 - 145 mmol/L [facility] Potassium 3.6 3.3 - 5.1 mmol/L [facility] Chloride 106 96 - 108 mmol/L [facility] Carbon Dioxide 26 22 - 29 mmol/L [facility] Anion Gap 9(L) 12 - 20 [facility] Urea Nitrogen (BUN) 11 9 - 16 mg/dL [facility] Creatinine, Serum 0.67 0.5 - 1.4 mg/dL [facility] Creatinine Clr Calc Pharmacy 114.1 [facility] Comment:Provided height and weight: 157.48 cm,95.254 kg.eGFR (calculated from the MDRD study equation) and eCrCl(calculated from the Cockcroft-Gault equation) are based ondifferent parameters and may not yield comparable results.If eCrCl result is absurd, please check patient'sheight/weight. Estimated Glomerular Filt Rate >60 [facility] Comment:Chronic Kidney Disea se: Estimated GFR < 60 mL/min/1.48u3Eokycp Kidney Disease: Estimated GFR < 15 mL/min/1.73m2 Glucose 82 60 - 115 mg/dL [facility] Calcium 8.8 8.4 - 10.2 mg/dL [facility] Bilirubin, Total 0.2 0.0 - 1.0 mg/dL [facility] Aspartate Amino Transferase 18 5 - 31 U/L [facility] Alanine Aminotransferase 16 0 - 31 U/L [facility] Total Protein 8.2(H) 6.5 - 8.0 g/dL [facility] Albumin Level 4.0 3.5 - 5.0 g/dL [facility] Alkaline Phosphatase 107 39 - 117 U/L [facility] 04/12/2024 5:43 PM EST 04/12/2024 5:46 PM EST us Generic External Data Provider LAB BLOOD ORDERAB LES Final Result [facility] [address] [place] [phone] * CT Head w/o Contrast (03/12/2024 6:21 PM EST) Anatomical Region Laterality Modality Head, Neck Computed Tomogra phy 03/12/2024 6:21 PM EST Narrative 03/12/2024 6:22 PM EST ? [facility] ?[address] ?[place] [address] ? CT Scan Report ? Signed ? Patient: Salinas,Melissa ?MR#: [id number] ? : 1980 ?Acct:[id number] ? Age/Sex: 43 / F ?ADM Date: 03/12/24 ? Loc: HO.ED ? Attending Dr: ? Ordering Physician: Chiquita Trivedi ?? Date of Service: 03/12/24 ?? Procedure(s): CT head/brain wo IV con ?? Accession Number(s): [id number] ? cc: Netta Lang HIGHWAY DESIGN ENGINEER; Chiquita Trivedi ? Report Number: ?? [id number]: Total DLP = ??704.00 mGy-cm ? CLINICAL [...] by Deja Corrigan MD in OV> ? 03/12/241821 ? DD/ 182 ? TD/TT: 03/12/24 182 ? Special Needs Babysitter: ? Procedure Note Donotuseinterpreter, Image - 03/12/[address] [address] [address] Scan Report Signed Patient: Melissa SalinasMR#: [id number] : 1980Acct:[id number] Age/Sex: 43 / FADM Date: 03/12/24 Loc: HO.ED Attending Dr: Ordering Physician: Chiquita Trivedi Date of Service: 03/12/24 Procedure(s): CT head/brain wo IV con Accession Number(s): [id number] cc: Netta Lang HIGHWAY DESIGN ENGINEER; Chiquita Trivedi Report Number: [id number]: Total DLP = 704.00 mGy-cm CLINICAL HISTORY: [...] MD in OV> 03/12/241821 DD/ 20 TD/TT: 03/12/24 182 Special Needs Babysitter: us [facility] External Provider IMG CT PROCEDURES Edited Result - Final * SARS-CoV-2 RNA, Influenza A/B, and RSV RNA, Ql NAAT (03/12/2024 5:30 PM EST) Influenza A PCR NEGATIVE Negative [facility] Influenza B PCR NEGATIVE Negative [facility] Resp Syncy Virus RNA Qual PCR NEGATIVE Negative [facility] SARS COV2 PCR NEGATIVE Negative [facility] Comment:All test results mus t [...] use by authorized laboratories.Testing performed on the [employer] GeneXpert utilizingreal-time RT-PCR.All SARS CoV2 and positive influenza A/B results arereported to [facility]. 03/12/2024 5:30 PM EST 03/12/2024 5:36 PM EST Generic External Data Provider LAB MICROBIOLOGY - GENERAL ORDERABLES Final Result Performing Organization Address [facility] Co de Phone Number [facility] [address] [place] [phone] * (ABNORMAL) Sed Rate by Modified Westergren (03/12/2024 5:30 PM EST) Pathologist [facility] Erythrocyte Sedimentation Rate 24(H) 0 - 20 MM/HR [facility] Comment:Patients with polycy themia and many hemoglobin abnormalitiesmay have depressed sed rates whereas patients with anemiamay have elevated sed rates. 03/12/2024 5:30 PM EST 03/12/2024 5:36 PM EST Generic External Data Provider LAB BLOOD ORDERAB LES Final Result Performing Organization Address [facility] Co de Phone Number [facility] [address] [place] [address] [phone] * (ABNORMAL) C-reactive Protein (03/12/2024 5:30 PM EST) C Reactive Protein 0.72(H) < or = 0.50 mg/dL [facility] 03/12/2024 5:30 PM EST 03/12/2024 5:36 PM EST Generic External Data Provider LAB BLOOD ORDERAB LES Final Result Performing Organization Address [facility] de Phone Number [facility] [address] [place] [phone] * hCG, Total, Quantitative (03/12/2024 5:30 PM EST) HCG Quantitative <2 mIU/mL [facility] Comment:Weeks post LMP Appro ximate hCG(Last Menstrual Period) Range (mIU/ml)3 - 4 weeks 9 - 1304 - 5 weeks 75 - 2,6005 - 6 weeks 850 - 20,8006 - 7 weeks 4000 - 100,2007 - 12 weeks 11,500 - 289,78916 - 16 weeks 18,300 - 137,93689 - 29 weeks (2nd trimester) 1,400 - 53,09794 - 41 weeks (3rd trimester) 940 - 60,000The [place] B-hCG assay is used for the early detection ofpregnancy; it cannot be used to diagnose any conditionunrelated to . If a B-hCG level is not supportedby the clinical evidence, results should be confirmed by analternative method (qualitative urine hCG, for example). 03/12/2024 5:30 PM EST 03/12/2024 5:36 PM EST Generic External Data Provider LAB BLOOD ORDERAB LES Final Result Performing Organization Address [facility] Co de Phone Number [facility] [address] [place] [address] [phone] * BI Mammogram Screening Tomosynthesis Bilateral (02/29/2024 9:09 AM EST) Anatomical Region Laterality Modality Breast Bilateral Mammography 02/29/2024 9:09 AM EST Narrative 03/10/2024 10:40 AM EST ? [facility] ? [address] ?[place] [address] ? Mammography Report ? Signed ? Patient: Salinas,Melissa ?MR#: [id number] ? : 1980 ?Acct:[id number] ? Age/Sex: 43 / F ?ADM Date: 02/29/24 ? Loc: HO.MAMMO ? Attending Dr: David Cardozo MD ? Ordering Physician: David Cardozo MD ?Results: 1Negativ ?? e ? Date of Service: 02/29/24 ?Follow Up: 1 Year From Orig ?? inal Mammogram ? Procedure(s): MM tomosynthesis screening BI ?? Accession Number(s): [id number] ? cc: Netta Lang; David Cardozo MD ? EXAMINATION: ?? MM [...] ??Jacquie Millan DO ??03/10/2024 10:37 AM EST ? Dictated By: ?Jacquie Millan DO ? Signed By: ?<Electronically signed by Jacquie Millan, DO in OV> ? 03/10/24 1037 ? DD/ 8 ? TD/TT: 02/29/24923 ? Special Needs Babysitter: ? Procedure Note Donteodoroter, Image - 03/10/2024 [facility] [address] [place] [address] Mammography Report Signed Patient: Melissa SalinasMR#: [id number] : 1980Acct:[id number] Age/Sex: 43 / FADM Date: 02/29/24 Loc: HO.MAMMO Attending Dr: David Cardozo MD Ordering Physician: David Cardozoesults: 1Negativ e Date of Service: 02/29/24Follow Up: 1 Year From Orig inal Mammogram Procedure(s): MM tomosynthesis screening BI Accession Number(s): [id number] cc: Netta Lang; David Cardozo MD EXAMINATION: [...] Jacquie Millan DO 03/10/2024 10:37 AM EST Dictated By: Jacquie Millan DO Signed By: <Electronically signed by Jacquie Millan DO in OV> 03/10/24 1037 DD/ 8 TD/TT: 02/29/24923 Special Needs Babysitter: [facility] External Provider IMG BI PROCEDURES Final Result * Hematoxylin and Eosin Stain (01/27/2024 11:15 AM EST) 01/27/2024 11:1 5 AM EST 01/27/2024 2:00 PM EST [facility] - 01/28/2024 4:47 PM EST ----- ------- Name: Melissa Salinas ? Age/Sex: 43/F ? [facility] 1980 [id number] [id number] ?? Attend Dr: David Cardozo MD ?Re01/27/24 ?Status: DEP REF ? Location: HO.LNP ?Disch: ? ----- ------- SPEC : [id number] ? RECD: 01/27/24-1400 ? STATUS: ??SOUT ? REQ NUM: [id number] ? CHIP: 01/27/245 ? SUBM DR: David Cardozo MD ? [...] multiple pieces in cassettes A1 and A2. [facility] Copies To: ?? Netta Lang ?? [address] ?? [place] [address] ?? [phone] ?? David Cardozo MD ?? [facility] ?? [address] ?? [place] [address] ?? [phone] ----- ------- Signed (signature on file) Marianna Emmanuel MD 01/28/24 1612 ? ----- ------- ? END OF REPORT ? us Generic External Data Provider LAB BLOOD ORDERAB LES Final Result [facility] [address] [facility] [place] [address] [phone] * HIV Ab/Ag ([facility]) (11/27/2022 12:07 PM EDT) Pathologist [facility] HIV AB/AG Nonreactive Nonreactive [facility] Comment:HIV-1 p24 Ag and/or HIV-1/HIV-2 Ab not detected.A test result that is nonreactive does not exclude thepossibility of exposure to or infection with HIV-1 and/orHIV-2. Nonreactive results in this assay for individualswith prior exposure to HIV-1 and/or HIV-2 may be due toantigen and antibody levels that are below the limit ofdetection of this assay.The Anes[employer] HIV Ag/Ab Combo assay result andsupplemental assay results should be interpreted inconjunction with the patient's clinical presentation,history and other laboratory results. If the results areinconsistent with clinical evidence, additional testing issuggested to confirm the result. 11/27/2022 12:0 7 PM EDT 11/27/2022 2:48 PM EDT Vanessa Fitzgerald HIGHWAY DESIGN ENGINEER LAB BLOOD ORDERABLES Final Result [facility] [address] [place] [phone] * THINPREP TIS PAP AND HPV mRNA E6/E7, CT/NG, TRICH (10/23/2021 2:55 PM EDT) Chlamydia trachomatis RNA, TMA, Urogenital NOT DETECTED NOT DETECTED [facility] Clinical Information: None given [facility] COMMENT SEE [facility] Comment: The analytical performance characteristics of this assay, when used to test SurePath(TM) specimens have been determined by [facility]. The modifications have not been cleared or approved by the FDA. This assay has been validated pursuant to the CLIA regulations and is used for clinical purposes. ?? For additional information, please refer to https://education.[employer]/faq/VKO075 (This link is being provided for information/ [...] has been evaluated with computer assisted technology. [facility] Database Marketing Manager: SEE COMMENT [facility] Comment: SXA, CT(ASCP) CT screening location: [address] ??[id number] HPV nRNA E6/E7 Not Detected Not Detected [facility] Comment: Methodology: Scale Model Maker-Mediated Amplification This assay detects E6/E7 viral messenger RNA (mRNA) from 14 high-risk HPV types (16,18,31,33,35,39,45,51,52,56,58,59,66,68). ? Cervical sources are required for HPV testing. If a vaginal source from a patient who has had a total hysterectomy with removal of cervix was ?? submitted, please contact the testing laboratory for alternative testing options. ?? For additional information, please refer to http://3KeyIt.[employer]/faq/NHM504o8 (This link if provided for information/ educational [...] of this assay have been determined by [facility]. The modifications have not been cleared or approved by the FDA. This assay has been validated pursuant to the CLIA regulations and is used for clinical purposes. ?? For additional information, please refer to http://education.[employer]/ faq/Trichomonastma (This link is being provided for information/ educational purposes only.) ?? 10/23/2021 2:55 PM EDT us Marylu West NP LAB PATHOLOGY ORDERABLES Final Result [facility] [address] from Last 3 Months or Most Recently Relevant to Health Maintenance Insurance [place] [address] C3 Care Teams Senior Sql Database Developer Relationship Specialty Start Date End Date Netta Lang FNP [address] [place] [id number] PCP - General Family Medicine 11/04/21
--- OUTSIDE RECORDS SUMMARY | 2024-04-14 14:04 | XMS_ITS | Encounter Summary ---
Author Organization [facility] Address [address] [facility] [address] [facility] [place] [address] Care Team Providers Care Sharepoint Net Developer Name Role Phone Netta Lang MAINFRAME SOFTWARE DEVELOPER Primary Care Provider [phone] Reason for Visit * Reason Comments Abdominal Pain Encounter Details Date Type Department Care Team (Late st Contact Info) Description 04/14/2024 9:20 AM EST Office Visit [facility] [address] [place], [place] [phone] Monique Honeycutt MD [address] [place], [place] [phone] Lower abdominal pain (Primary Dx); Other microscopic hematuria Social History Tobacco Use Types Packs/Day Years [...] AM EDT documented as of this encounter Last Filed Vital Signs Vital Sign Reading [...] oz) 04/14/2024 9:03 A M EST Height - - Body Mass Index 41.85 09/03/2023 8:54 AM EDT documented in this encounter Progress Notes * Monique Honeycutt MD - 04/14/2024 9:20 AM EST SUBJECTIVE: Melissa Salinas is a 43 y.o. year old female who presents for Walk In Center/abd pain . Denies recent illness, injury, or hospitalization. Acute Concerns: Patient complains of persistent generalized abdominal pain mostly on both flanks noted associated to meals dysuria fever nausea or vomiting. She was seen at [facility] on April 12 and had essentially normal labs and a pelvic CT scan. She was discharged on MiraLAX which she has not started taking and and meloxicam. Last menstrual period was 04/03/2024. She has BTL Social History Social History Narrative Employment: not currently employed Substance use: -alcohol: none reported -tobacco: none reported -opioids: none reported Sexual activity: assisted male partner Contraception: BTL Mental health: denies SI/HI/thoughts of self harm Patient Active Problem List Diagnosis Acute low back pain Headache Hemorrhagic cyst of ovary Mixed anxiety and depressive disorder Healthcare maintenance Gastroesophageal reflux disease without esophagitis Stress incontinence Lower abdominal pain Other microscopic hematuria Family History Problem Relation Name Age of Onset Colon cancer Father Review of Systems Constitutional: Negative for chills, fatigue and fever. HENT: Negative for congestion, ear pain, nosebleeds, rhinorrhea, sinus pressure, sore throat and trouble swallowing. Eyes: Negative for pain and discharge. Respiratory: Negative for cough, chest tightness and shortness of breath. Cardiovascular: Negative for chest pain, palpitations and leg swelling. Gastrointestinal: Negative for abdominal pain, blood in stool, constipation, diarrhea and nausea. Endocrine: Negative for polydipsia and polyuria. Genitourinary: Positive for vaginal discharge (cler/thick/no foul smell). Negative for dysuria, genital sores and pelvic pain. Musculoskeletal: Negative for back pain and neck pain. Skin: Negative for rash. Allergic/Immunologic: Negative for environmental allergies. Neurological: Negative for dizziness, seizures, weakness, light-headedness and headaches. Hematological: Negative for adenopathy. Psychiatric/Behavioral: Negative for agitation, behavioral problems, self-injury and suicidal ideas. OBJECTIVE: Vitals: 04/14/24 0903 BP: 127/79 Pulse: 77 Resp: 17 Temp: 97.8 ??F (36.6 ??C) SpO2: 98% Physical Exam HENT: Right Ear: Tympanic membrane and ear canal normal. Left Ear: Tympanic membrane and ear canal normal. Mouth/Throat: Mouth: Mucous membranes are moist. Pharynx: No oropharyngeal exudate or posterior oropharyngeal erythema. Eyes: Pupils: Pupils are equal, round, and reactive to light. Cardiovascular: Rate and Rhythm: Regular rhythm. Pulses: Normal pulses. Heart sounds: Normal heart sounds. No murmur heard. Pulmonary: Breath sounds: Normal breath sounds. Abdominal: General: Bowel sounds are normal. Palpations: Abdomen is soft. Tenderness: There is abdominal tenderness in the suprapubic area, left upper quadrant and left lower quadrant. There is no right CVA tenderness, left CVA tenderness, guarding or rebound. Musculoskeletal: General: Normal range of motion. Cervical back: Neck supple. Skin: General: Skin is warm. Neurological: General: No focal deficit present. Mental Status: She is alert and oriented to person, place, and time. Psychiatric: Mood and Affect: Mood normal. Behavior: Behavior normal. Office Visit on 04/14/2024 Component Date Value Ref Range Status Color, UA 04/14/2024 Yellow Final Clarity, UA 04/14/2024 Clear Final Glucose, UA 04/14/2024 Negative Final Bilirubin, UA 04/14/2024 Negative Final Ketones, UA 04/14/2024 Positive Final trace Spec Grav, UA 04/14/2024 1.030 Final Blood, UA 04/14/2024 Positive (A) Negative, None Detected Final trace-intact pH, UA 04/14/2024 5.5 Final Protein, UA 04/14/2024 Negative Final Urobilinogen, UA 04/14/2024 0.2 Final Leukocytes, UA 04/14/2024 Negative Negative, Rare, Trace Final Nitrite, UA 04/14/2024 Negative Negative, None Detected Final Problem List Items Addressed This Visit Lower abdominal pain - Primary Probably related to constipation, CT scan of [...] of vaginal discharge which has benign features Relevant Orders CBC auto differential Sed Rate by Modified [place] POCT urinalysis dipstick manually resulted (Completed) Bacterial Vaginosis Panel Chlamydia/N. Gonorrhoeae RNA, TMA, Urogenitial Other microscopic hematuria CT scan abd/pelvis recently ro'd kidney stone. Order Urine Cytology and fu w PCP Relevant Orders Cytology, urine Follow Up: Current Outpatient Medications on File Prior to Visit Medication Sig Dispense Refill Acetaminophen Extra Strength 500 MG tablet TAKE 1 OR 2 TABLETS BY MOUTH EVERY 6 HOURS NEEDED FEVER OR PAIN 60 tablet 2 gabapentin (Neurontin) 100 MG capsule Take 200 mg by mouth 3 times daily. hydrOXYzine HCl (Atarax) 25 MG tablet TAKE 1 TABLET BY MOUTH UP TO THREE TIMES DAILY NEEDED FOR ANXIETY. MAY CAUSE DROWSINESS mirtazapine (Remeron) 30 MG tablet Take 30 mg by mouth at bedtime. risperiDONE (RisperDAL) 1 MG tablet TAKE 1 TO 2 TABLETS BY MOUTH AT BEDTIME FOR RACING THOUGHTS sertraline (Zoloft) 100 MG tablet Take 200 mg by mouth in the morning. traZODone (Desyrel) 100 MG tablet TAKE 2 TABLETS BY MOUTH AT BEDTIME NEEDED [DISCONTINUED] polyethylene glycol, PEG, 3350 (Glycolax) 17 GM/SCOOP powder No current facility-administered medications on file prior to visit. documented in this encounter Miscellaneous Notes * Assessment & Plan Note - Monique Honeycutt MD - 04/14/2024 11:35 AM EST Associated Problem(s): Other microscopic hematuria CT scan abd/pelvis recently ro'd kidney stone. Order Urine Cytology and fu w PCP * Assessment & Plan Note - Monique Honeycutt MD - 04/14/2024 9:31 AM EST Associated Problem(s): Lower abdominal pain Probably related to constipation, CT scan of [...] of vaginal discharge which has benign features documented in this encounter Plan of Treatment Scheduled Orders Name Type Priority Associated Diagnoses Order Schedule CBC auto differential Lab Routine Lower abdominal pain Expected: 04/14/2024 (Approximate), Expires: 04/14/2025 Sed Rate by Modified [place] Lab Routine Lower abdominal pain Expected: 04/14/2024 (Approximate), Expires: 04/14/2025 Bacterial Vaginosis Panel Microbiology Routine Lower abdominal pain Ordered: 04/14/2024 Chlamydia/N. Gonorrhoeae RNA, TMA, Urogenitial Microbiology Routine Lower abdominal pain Ordered: 04/14/2024 Cytology, urine Pathology and Cytology Routine Other microscopic hematuria Expected: 04/14/2024 (Approximate), Expires: 04/14/2025 documented as of this encounter Procedures Procedure Name Priority Date/Time Associated Diagnosis Comments POCT URINALYSIS DIPSTICK Routine 04/14/2024 9:34 AM EST Lower abdominal pain documented in this encounter Results * (ABNORMAL) POCT urinalysis dipstick manually [...] None Detected Urine 04/14/2024 9:34 AM EST Monique Honeycutt MD POINT OF CARE TEST ENTER /EDIT ORDERABLES Final Result documented in this encounter Visit Diagnoses Diagnosis Lower abdominal pain- Primary Abdominal pain, other specified site Other microscopic hematuria documented in this encounter Additional Health Concerns Assessment Noted Time PHQ-9 Depression Total Score: 11 024 1:28 PM EDT documented as of this encounter Care Teams Sharepoint Net Developer Relationship Specialty Start Date End Date Netta Lang FNP [address] [place] [address] PCP - General Family Medicine 11/04/21 documented as of this encounter
--- OUTSIDE RECORDS SUMMARY | 2024-04-14 14:04 | XMS_ITS | Encounter Summary ---
Author Organization [employer] Address [address] [place] [address] Care Team Providers Care Louver Door Assembler Name Role Phone Netta Lang Primary Care Provider [phone] Reason for Visit * Reason Onset Date Comments ER Follow-up 04/13/2024 Encounter Details Date Type Department Care Team (Late st Contact Info) Description 04/13/2024 Telephone [facility] [address] [place] [address] Netta Lang FNP [address] [place], [place] [phone] ER Follow-up Social History Tobacco Use Types Packs/Day Years [...] AM EDT documented as of this encounter Miscellaneous Notes * Telephone Encounter - Narda Patterson RN - 04/14/2024 9:29 AM EST Pharmacy has been put into pt. Chart. * Telephone Encounter - JENNIFER Wade - 04/13/2024 5:37 PM EST I agree with triage recommendation. Which pharmacy did she say she wanted the miralax sent to? There is no active pharmacy on file. Thanks * Telephone Encounter - Narda Patterson RN - 04/13/2024 4:32 PM EST Called pt. Via [facility] graduate student instructor [phone] [address]. Pt. States that she had pain on her lower back on right side and extended down her legs. Pt went to [facility] yesterday and urine tests, blood tests, and they stated those tests came back Negative. Pt denies any pain with urination or blood in urine. Pt also had a CT scan done and there was stool found in the report but nothing else. Pt. States that she does not have constipation and she moves her bowels regularly 2 times daily. I do see in pt. Chart that she was prescribed MiriLax in the past. Pt. Denies ever having Kidney stones. No fever, no nausea or vomiting. Pt. Will come to walk in tomorrow am and hours given. I did put a refill in for MiriLax for pt. To resume taking if the CT scan shows large amount of stool in stomach. Protocol Used: Flank Pain (Adult) Protocol-Based Disposition: See in Office or Video Visit Today- Pt will go to walk in tomorrow am. Video visit offer not recorded Positive Triage Questions: * Moderate pain (e.g., interferes with normal activities or awakens from sleep) * Patient wants to be seen * All higher-acuity triage questions were negative * Telephone Encounter - Rk Wright - 04/13/2024 3:38 PM EST Patient calling to report ED visit on : Date: 04/12/2024 Hospital: [facility] Seen for: Lower Back Pain Symptomatic Yes *if yes message should go to Triage Patient advised will forward to team nurse for follow up documented in this encounter Plan of Treatment Not on file documented as of this encounter Visit Diagnoses Not on filedocumented in this encounter Additional Health Concerns Assessment Noted Time PHQ-9 Depression Total Score: 11 024 1:28 PM EDT documented as of this encounter Care Teams Louver Door Assembler Relationship Specialty Start Date End Date Netta Lang FNP [address] [place] [id number] PCP - General Family Medicine 11/04/21 documented as of this encounter
--- OUTSIDE RECORDS SUMMARY | 2024-04-14 14:04 | XMS_ITS | Encounter Summary ---
Author Organization [employer] Address [address] [place] [address] Care Team Providers Care Bicycle Fitter Name Role Phone Netta Lang JENNIFER Primary Care Provider [phone] Encounter Details Date Type Department Care Team (Late st Contact Info) Description 04/12/2024 Orders Only [...] Procedure Name Priority Date/Time Associated Diagnosis Comments CT ABDOMEN PELVIS WO CONTRAST Routine 04/12/2024 10:43 PM EST URINALYSIS, COMPLETE, WITH REFLEX TO CULTURE Routine 04/12/2024 5:43 PM EST CBC WITH AUTO DIFFERENTIAL Routine 04/12/2024 5:43 PM EST HCG, QL, URINE Routine 04/12/2024 5:43 PM EST MAGNESIUM Routine 04/12/2024 5:43 PM EST LIPASE Routine 04/12/2024 5:43 PM EST COMPREHENSIVE METABOLIC PANEL Routine 04/12/2024 5:43 PM EST documented in this encounter Results * CT Abdomen Pelvis w/o Contrast (04/12/2024 10:43 PM EST) Anatomical Region Laterality Modality Body, Pelvis, Abdomen Computed T omography 04/12/2024 10:4 3 PM EST Narrative 04/12/2024 10:44 PM EST ? [facility] ?[address] ?[place] [address] ? CT Scan Report ? Signed ? Patient: Salinas,Melissa ?MR#: [id number] ? : 1980 ?Acct:[id number] ? Age/Sex: 43 / F ?ADM Date: 01/29/25 ? Loc: HO.ED ? Attending Dr: ? Ordering Physician: Nevin Morrison ?? Date of Service: 04/12/24 ?? Procedure(s): CT abdomen pelvis wo IV con ?? Accession Number(s): [id number] ? cc: Nevin Morrison; [facility] ? Report Number: ?? [id number]: Total DLP = ??746.00 mGy-cm ? CLINICAL HISTORY: right flank pain ? CT abdomen and pelvis without contrast ? Comparison: CT/TN/SR - CT ABDOMEN PELVIS WO IV CON [...] MD ? Signed By: ?<Electronically signed by Rm Mcwilliams MD in OV> ? 04/12/243 ? DD/ 42 ? TD/TT: 04/12/242242 ? Wind Instrument Repairer: ? Procedure Note Reta, Gonzalez - 04/12/[address] [place] [id number] [address] Scan Report Signed Patient: Melissa SalinasMR#: [id number] : 1980Acct:[id number] Age/Sex: 43 / FADM Date: 04/12/24 Loc: HO.ED Attending Dr: Ordering Physician: Nevin Morrison Date of Service: 04/12/24 Procedure(s): CT abdomen pelvis wo IV con Accession Number(s): [id number] cc: Nevin Morrison; [facility] Report Number: [id number]: Total DLP = 746.00 mGy-cm CLINICAL HISTORY: right flank pain CT abdomen and pelvis without contrast Comparison: CT/TN/SR - CT ABDOMEN PELVIS WO IV CON [...] in OV> 04/12/242242 DD/ 42 TD/TT: 04/12/242242 Wind Instrument Repairer: [facility] External Provider IMG CT PROCEDURES Final Result * (ABNORMAL) CBC auto differential (04/12/2024 5:43 PM EST) White Blood Count 11.0(H) 4.8 - 10.8 X10*3/uL [facility] Red Blood Count 4.58 4.20 - 5.50 X10*6/uL [facility] Hemoglobin 13.2 12.0 - 16.0 g/dl [facility] Hematocrit 40.7 37.0 - 47.0 % [facility] Mean Corpuscular Volume 88.9 80.0 - 98.0 fL [facility] Mean Corpuscular Hemoglobin 28.8 27.0 - 33.0 pg [facility] Mean Corpuscular HGB Conc 32.4 31.0 - 35.0 g/dl [facility] Red Cell Distribution Width 12.8 11.0 - 16.0 % [facility] Platelet Count 347 160 - 400 X10*3/uL [facility] Mean Platelet Volume 9.6 9.4 - 12.3 fL [facility] Neutrophils Percent Auto 62.8 45 - 73 % [facility] Imm Gran Pct Auto 0.4 0.0 - 0.4 % [facility] Lymphocytes Percent Auto 27.4 20 - 40 % [facility] Monocytes Percent Auto 7.3 2 - 11 % [facility] Eosinophils Percent Auto 1.5 0 - 4 % [facility] Basophils Percent Auto 0.6 0 - 2 % [facility] NRBC Pct Auto 0.0 0.0 - 0.2 /100WBC [facility] Neutrophils Absolute Auto 6.9 2.0 - 8.3 x10*3/uL [facility] Imm Gran Abs Auto 0.04(H) 0.00 - 0.03 X10*3/uL [facility] Lymphocytes Absolute Auto 3.0 1.2 - 4.9 X10*3/uL [facility] Monocytes Absolute Auto 0.8 0.1 - 1.2 X10*3/uL [facility] Eosinophils Absolute Auto 0.2 0.0 - 0.4 X10*3/uL [facility] Basophils Absolute Auto 0.1 0.0 - 0.2 X10*3/uL [facility] NRBC Abs Auto 0.000 0.0 - 0.012 X10*3/uL [facility] 04/12/2024 5:43 PM EST 04/12/2024 5:46 PM EST Generic External Data Provider LAB BLOOD ORDERAB LES Final Result Performing Organization Address [facility]/ZIP Co de Phone Number [facility] [address] [place] [phone] * Lipase (04/12/2024 5:43 PM EST) Pathologist [facility] Lipase 16 8 - 78 U/L [facility] 04/12/2024 5:43 PM EST 04/12/2024 5:46 PM EST Generic External Data Provider LAB BLOOD ORDERAB LES Final Result Performing Organization Address [facility] Co de Phone Number [facility] [address] [place] [phone] * Magnesium (04/12/2024 5:43 PM EST) Pathologist [facility] Magnesium 1.9 1.6 - 2.6 mg/dL [facility] 04/12/2024 5:43 PM EST 04/12/2024 5:46 PM EST us Generic External Data Provider LAB BLOOD ORDERAB LES Final Result [facility] [address] [place], [place] [phone] * (ABNORMAL) Comprehensive Metabolic Panel (04/12/2024 5:43 PM EST) Sodium 137 135 - 145 mmol/L [facility] Potassium 3.6 3.3 - 5.1 mmol/L [facility] Chloride 106 96 - 108 mmol/L [facility] Carbon Dioxide 26 22 - 29 mmol/L [facility] Anion Gap 9(L) 12 - 20 [facility] Urea Nitrogen (BUN) 11 9 - 16 mg/dL [facility] Creatinine, Serum 0.67 0.5 - 1.4 mg/dL [facility] Creatinine Clr Calc Pharmacy 114.1 [facility] Comment:Provided height and weight: 157.48 cm,95.254 kg.eGFR (calculated from the MDRD study equation) and eCrCl(calculated from the Cockcroft-Gault equation) are based ondifferent parameters and may not yield comparable results.If eCrCl result is absurd, please check patient'sheight/weight. Estimated Glomerular Filt Rate >60 [facility] Comment:Chronic Kidney Disea se: Estimated GFR < 60 mL/min/1.78h0Usoltk Kidney Disease: Estimated GFR < 15 mL/min/1.73m2 Glucose 82 60 - 115 mg/dL [facility] Calcium 8.8 8.4 - 10.2 mg/dL [facility] Bilirubin, Total 0.2 0.0 - 1.0 mg/dL [facility] Aspartate Amino Transferase 18 5 - 31 U/L [facility] Alanine Aminotransferase 16 0 - 31 U/L [facility] Total Protein 8.2(H) 6.5 - 8.0 g/dL [facility] Albumin Level 4.0 3.5 - 5.0 g/dL [facility] Alkaline Phosphatase 107 39 - 117 U/L [facility] 04/12/2024 5:43 PM EST 04/12/2024 5:46 PM EST Generic External Data Provider LAB BLOOD ORDERAB LES Final Result Performing Organization Address City/[facility] Co de Phone Number [facility] [address] [place] [address] [phone] * HCG, Qualitative, Urine (04/12/2024 5:43 PM EST) Urine NEGATIVE NEGATIVE [facility] Comment:This test was develo ped to detect early . Falsenegative results may occur after the 5th - 7th week ofpregnancy when using this test method. If clinicallyindicated, consider a serum hCG. 04/12/2024 5:43 PM EST 04/12/2024 5:59 PM EST Generic External Data Provider LAB URINE ORDERAB LES Final Result Performing Organization Address [facility] Co de Phone Number [facility] [address] [place] [address] [phone] * (ABNORMAL) Urinalysis, Complete, with Reflex to Culture (04/12/2024 5:43 PM EST) Color Urine Yellow [facility] Appearance Urine Clear [facility] PH 5.5 5.0 - 9.0 [facility] Glucose Urine UA Negative Negative mg/dL [facility] Urine Blood Small (1+)(A) Negative [facility] Specific Rodman - Urine 1.025 1.005 - 1.025 [facility] Urine Protein Negative Neg-Trace mg/dL [facility] Urine Ketones Negative Negative mg/dL [facility] Nitrite Urine Negative Negative [facility] Leukocyte Esterase Urine Negative Negative [facility] RBC Urine 6-10(A) 0 - 2 /HPF [facility] Urine WBC 0-5 0 - 5 /HPF [facility] Urine Squamous Epithelial Cell 0-2 0 - 2 /HPF [facility] Urine Bacteria None Seen None Seen [facility] Hyaline Casts, Urine 0-2 0 - 2 /LPF [facility] 04/12/2024 5:43 PM EST 04/12/2024 5:46 PM EST Narrative [facility] - 04/12/2024 6:02 PM EST [id number], Clean Catch us Generic External Data Provider LAB URINE ORDERAB LES Final Result [facility] [address] [place] [address] [phone] documented in this encounter Visit Diagnoses Not on filedocumented in this encounter Additional Health Concerns Assessment Noted Time PHQ-9 Depression Total Score: 11 024 1:28 PM EDT documented as of this encounter Care Teams Bicycle Fitter Relationship Specialty Start Date End Date Netta Lang FNP [address] [place] [address] PCP - General Family Medicine 11/04/21 documented as of this encounter
--- OUTSIDE RECORDS SUMMARY | 2024-04-14 14:04 | XMS_ITS | Clinical Summary ---
Author Organization [employer] [facility] ity Address [address] [place] [address] Care Team Providers Care Graphic Illustrator Name Role Phone Unavailable Primary Care Provider [...]
--- OUTSIDE RECORDS SUMMARY | 2024-04-14 14:04 | XMS_ITS | Encounter Summary ---
Author Organization [employer] Address [address] [facility] [address] [place] [address] Care Team Providers Care Senior Cost Accountant Name Role Phone Netta Lang GUIDE DOMESTIC TOUR Primary Care Provider [phone] Encounter Details Date Type Department Care Team ([facility] st Contact Info) Description 03/24/2024 Telephone [facility] OPTOMETRY [address] [place], [place] [phone] Marylu Buitrago, OD [address] [place] [address] Social History Tobacco Use Types Packs/Day Years [...] documented as of this encounter Care Teams Senior Cost Accountant Relationship Specialty Start Date End Date Netta Lang FNP [address] [place] [phone] PCP - General Family Medicine 11/04/21 documented as of this encounter
[2024-04-15 06:25] LABS: CT PCR NOT DETECTED (Not Detect.); NG PCR NOT DETECTED (Not Detect.)
[2024-04-15 15:42] LABS: Bacterial Vaginosis PCR NEGATIVE (Negative); Candida Group PCR NOT DETECTED (Not Detect); Candida glab krusei PCR NOT DETECTED (Not Detect); Trichomonas vaginalis PCR NOT DETECTED (Not Detect)
== END 2024-04-14 14:03 | disposition home or self-care (01) ==
LOC: HO.HHCLNP 14:02
PROVIDERS: Visit Provider Internal Medicine
DX: R10.30 Lower abdominal pain, unspecified (principal)
CPT/HCPCS: 81515; 87491; 87591

== ENCOUNTER 2024-07-17 11:12 | Outpatient (REF) | payer MEDICAID, SELFPAY ==
--- OUTSIDE RECORDS SUMMARY | 2024-07-17 12:57 | XMS_ITS | Clinical Summary ---
Author Organization [facility] Address [address] [place] [address] Care Team Providers Care Market Survey Representative Name Role Phone Unavailable Primary Care Provider Unavailabl e Allergies Active Allergy Reactions Criticality Noted Date Comments Morphine Other (See Comments) 10/28/2020 Heart races Medications doxycycline (VIBRAMYCIN) 100 MG capsule Take 1 [...] drink = 0.6 oz pur e alcohol) Comments Unknown Sex and Gender Information Value Date Recorded Sex Assigned at Not on file Legal Sex Female 4:56 PM EDT Gender Identity Not on file Sexual Orientation [...] Pap Smear (Ages 21-65) 11/23/1999 Mammogram 2018 COVID-19 Vaccine (1 - 2023-2 5 season) 2023 Colonoscopy 11/23/2023 Influenza Vaccine 10/13/2024 HPV Vaccines Aged Out No longer eligi ble based on patient's age to complete this topic Pneumococcal Vaccine: Pediat elias (0-5 Years) and At-Risk Patients (6 to 49 Years) Aged Out No longer eligible b ased on patient's age to complete this topic [place] [address] [place] [address] [employer]
--- OUTSIDE RECORDS SUMMARY | 2024-07-17 12:57 | XMS_ITS | Encounter Summary ---
Author Organization [employer] Address [address] [place] [address] Care Team Providers Care Installer Molding And Trim Name Role Phone Netta Lang PRINTING PRESSMAN Primary Care Provider [phone] Reason for Visit * Reason Onset Date Comments Chart Prep 07/14/2024 Encounter Details Date Type Department Care Team ([facility] st Contact Info) Description 07/14/2024 Telephone [facility]S [address] [place] [address] Johana Juarez MA Chart Prep Social History Tobacco Use Types Packs/Day Years [...] encounter Miscellaneous Notes * Telephone Encounter - Johana Henderson MA - 07/14/2024 9:08 AM EDT Chart Prep Labs: not done Images: done Referrals: appointment pending Vaccines due: Hep B Screenings: colonoscopy, LMP, and Hep C, Lipid Panel Overdue care gaps: SBIRT, SDOH, and PHQ-9 documented in this encounter Plan of Treatment Upcoming Encounters Date Type Department Care Team (Late st Contact Info) Description 10/16/2024 11:30 AM EDT Office Visit [facility] [address] [place] [address] Netta Lang FNP [address] [place] [address] documented as of this encounter Visit Diagnoses Not on filedocumented in this encounter Additional Health Concerns Assessment Noted Time PHQ-9 Depression Total Score: 11 024 1:28 PM EDT documented as of this encounter Care Teams Installer Molding And Trim Relationship Specialty Start Date End Date Netta Lang FNP [address] [place] [phone] PCP - General Family Medicine 11/04/21 documented as of this encounter
--- OUTSIDE RECORDS SUMMARY | 2024-07-17 12:58 | XMS_ITS | Clinical Summary ---
[facility] [address] [place] [address] Care Team Providers Care Surgical Asst Name Role Phone Unavailable Primary Care Provider Unavailabl e Social History Tobacco Use Types Packs/Day Years Used Date Smoking Tobacco: Never Assessed Comments Unknown Sex and Gender Information Value Date Recorded Sex Assigned at Not on file Legal Sex Female 4:35 AM EST Gender Identity Not on file Sexual Orientation Not on file Plan of Treatment Health Maintenance Due Date Last Done Comments Breast Cancer Screening 1980 DTaP,Tdap,and Td Vaccines (1 - Tdap) 1997 Hepatitis B Vaccines (1 of 3 - 19+ 3-dose series) 1997 Cervical Cancer Screening: P ap Smear 11/23/1999 COVID-19 Vaccine (2023-2 5 season) 2023 Influenza Vaccine (Season Ended) 2024 HIB Vaccines Aged Out No longer eligi [...] patient's age to complete this topic Meningococcal B Vaccine Aged Out No l onger eligible based on patient's age to complete [...]
--- OUTSIDE RECORDS SUMMARY | 2024-07-17 12:58 | XMS_ITS | Encounter Summary ---
Author Organization [employer] Address [address] [place] [address] Care Team Providers Care Sas Developer Analyst Name Role Phone Netta Lang TELETYPE INSTALLER Primary Care Provider [phone] Encounter Details Date Type Department Care Team (Latest Contact Info) Description 07/17/2024 Travel Social History Tobacco Use Types Packs/Day Years Used Date Smoking Tobacco: Never Smokeless Tobacco: Never Depression Answer Date Recorded Patient Health Questionnaire-9 Score 17 07/17/2024 Patient Health Questionnaire-9 Score 17 07/17/2024 Last PHQ-9: Questionnaire Data Not on file 0 07/17/2024 Housing Stability Answer Date Recorded What is your housing situation today? I have kina alejandre 07/17/[address] you li ve. Do you have problems with any of the following? None of the above 07/17/2024 Food Insecurity Answer Date Recorded Within the past 12 months, y ou worried that your food would run out before you got money to buy more: Sometimes True 2024 Within the past 12 months,th e food you bought just didn't last and you didn't have enough money to get more: Sometimes True 07/17/2024 Transportation Answer Date Recorded In the past 12 months, has l ack of transportation kept you from medical appts, meetings, work or from getting things needed for daily living? No 07/17/2024 Utilities Answer Date Recorded In the past 12 months, has t he electric, gas, oil or water company threatened to shut off services in your home? Yes 07/17/2024 Depression Answer Date Recorded Patient Health Questionnaire-2 Score 3 07/17/2024 Internet Access Answer Date Recorded Internet Access Q1 Yes 07/17/2024 Internet Access Q2 Not on file 07/17/2024 Comments Unknown Sex and Gender Information Value Date Recorded Sex Assigned at Female 01/12/2022 10:18 AM EDT Legal Sex Female 10:18 AM EDT Gender Identity Female 06/07/2023 7:20 AM EDT Sexual Orientation Choose not to disclose 2021 10:18 AM EDT documented as of this encounter Plan of Treatment Upcoming Encounters Date Type Department Care Team (Late st Contact Info) Description 10/16/2024 11:30 AM EDT Office Visit [facility] [address] [place] [address] Netta Lang FNP [address] [place] [address] documented as of this encounter Visit Diagnoses Not on filedocumented in this encounter Additional Health Concerns Assessment Noted Time PHQ-9 Depression Total Score: 17 025 10:23 AM EDT documented as of this encounter Care Teams Sas Developer Analyst Relationship Specialty Start Date End Date Netta Lang FNP [address] [place] [address] PCP - General Family Medicine 11/04/21 documented as of this encounter
--- OUTSIDE RECORDS SUMMARY | 2024-07-17 12:58 | XMS_ITS | Clinical Summary ---
Author Organization [employer] Address [address] [facility] [address] [place] [address] Care Team Providers Care Adjunct English Instructor Name Role Phone Netta Lang JENNIFER Primary Care Provider [phone] Allergies Active Allergy Reactions Criticality Noted Date [...] by mouth 3 times daily. 3 Active risperiDONE (RisperDAL) 1 MG tablet TAKE [...] OR PAIN 60 tablet 2 4 Active polyethylene glycol, PEG, 3350 (MiraLax) 17 GM/SCOOP powder Mix 1 capful of powder with 8 ounces of beverage (water, juice). Drink within 15 minutes of mixing. 238 g 5 Active tiZANidine (Zanaflex) 2 MG tablet Take 1-2 tablets (2-4 mg) by mouth if needed at bedtime for muscle spasms. 30 tablet 1 5 05/22/19 26 Active pantoprazole (Protonix) 20 MG EC tablet Take 1 tablet (20 mg) by mouth before breakfast. Do not crush, chew, or split. 90 tablet 1 5 07/18/19 26 Active Active Problems Problem Noted Date Diagnosed Date Uterine myoma 05/21/2024 Overview (05/21/2024): [place] with [facility]-Dr. Cardozo for complex ovarian cyst and uterine myoma. November 2023: Pelvic US demonstrated-endometrial thickness 2 mm. Uterine fibroid 1x0.8 x 0.9 cm. Another fibroid measuring 3x2.4x3.3cm. Right ovary with cyst. No cyst in left ovary. Consult in December with [facility]. Uterine myoma: plan to repeat pelvic US periodically. EMB completed January 2024 at [facility] [employer] [facility].Path: Secretory endometrium; negative for atypia, hyperplasia or malignancy. Chronic bilateral thoracic back pain 05/21/2024 Overview (05/21/2024): Referral to PS&S and physical therapy placed 05/21/24 Assessment & Plan (05/21/2024 3:03 PM EDT): - Moderate in severity and affecting ability to perform daily functions - Cont APAP/NSAIDs PRN - Tizanidine 2-4mg nightly PRN muscle spasms. Reviewed med safety and SE. Other microscopic hematuria 04/14/2024 Assessment & Plan [...] referral to GI Healthcare maintenance 06/15/2022 Overview (05/21/2024): Pap: NILM, HPV Neg 10/23/21 Colonoscopy: referral to [facility] 06/07/23 Optometry: referral to [facility] placed 06/10/23 Mammo: 02/29/24 BIRADS 1 Assessment & Plan (06/10/2023 4:42 PM EDT): Lab work, including asymptomatic STI screening, ordered below Hemorrhagic cyst of ovary 10/25/2021 Overview (09/03/2023): Eval at [facility] ED in 2020 w/ abd/pelvis CT that demonstrated complex cyst of left ovary, likely hemorrhagic in nature. [facility] [employer] [facility] Visit - Dr. Escobedo for CT results 03/05/23: Abdomen US pelvis complete ordered by [facility] provider. Possible hemorrhagic cyst of the left ovary. Recommended repeat pelvic US in 6-12 weeks to assess for resolution. Repeat pelvic/TUVS placed 04/29/23 Referral to [facility] placed 06/07/23 08/31/23: [facility] [place], diagnosed with suspected ruptured ovarian cyst Assessment & Plan (09/03/2023 12:20 PM EDT): Scheduled 09/08/23 at [facility] for follow up. Headache 02/13/2015 Mixed anxiety and depressive disorder 01/26/2013 Assessment & Plan (06/10/2023 4:41 PM EDT): -Followed by psych team: -Ele therapist - clinic located in [place]. Visit frequency every other week -Psych provider: Danette Mark -Current medication regimen includes: Risperidone 1mg nightly Mirtazapine 30mg nightly Sertraline 100mg daily Trazodone 100mg nightly PRN Gabapentin 100mg TID Resolved Problems Problem Noted Date Diagnosed Date Resolved Date Lower abdominal pain 04/14/2024 025 Assessment & Plan (04/14/2024 9:32 AM EST): [...] of vaginal discharge which has benign features Acute low back pain 04/14/2017 05/22/19 25 Encounters Date Type Department Care Team Description 07/17/2024 10:15 AM EDT Office Visit [facility] MED & PEDS [address] [place] [address] Netta Lang FNP Epigastric pain (Primary Dx); Healthcare maintenance 07/17/2024 Travel 07/14/2024 Telephone [facility] MED [facility]ED[facility] [address] [place] [address] Johana Juarez MA Chart Prep 06/07/2024 Telephone [facility] [address] [place], [place] [phone] Netta Lang FNP EMG ORDER 05/26/2024 Population Health Risk Score [facility] Department [address] [place] [id number] Provider, Population Health Generic 05/19/2024 3:30 PM EST Office Visit [facility] MED [facility] PEDS [address] [place] [address] Netta Lang FNP Chronic bilateral thoracic back pain (Primary Dx); Encounter for immunization; Healthcare maintenance; Uterine leiomyoma, unspecified location; Numbness and tingling in both hands; Class 3 severe obesity with body mass index (BMI) of 40.0 to 44.9 in adult, unspecified obesity type, unspecified whether serious comorbidity present (CMS/HCC); Dietary counseling; Exercise counseling 05/19/2024 Travel 05/19/2024 Telephone [facility] [address] [place] [address] Johana Juarez MA Chart Prep from Last 3 Months Immunizations Name Administration Dates Next Due Influenza injectable quadriv alent IIV4 with preservative 04/08/2017,12/06/2014 Influenza injectable quadrivalent preservative f ree 02/28/2021,04/19/2018 Influenza, IIV3, injectable 01/11/2014, 2 Influenza, Split (incl. purified surface antigen ) 01/26/2013,12/14/2011 Influenza, seasonal, injectable, preservative fr ee 05/19/2024 Pfizer Covid-19 Vaccine 12+ 05/19/2024 Pneumococcal Polysaccharide PPSV23 03/20/2011 TD (adult), 2 Lf tetanus tox oid, [...] Sign Reading Time Taken Comments Blood Pressure 122/78 07/17/2024 10:15 AM EDT Pulse 66 07/17/2024 10:15 AM EDT Temperature 36.3 ??C (97.4 ??F) 07/17/2024 10:15 AM E DT Respiratory Rate 22 07/17/2024 10:15 AM EDT Oxygen Saturation 97% 05/19/2024 3:40 PM EST Inhaled Oxygen Concentration - - Weight 103 kg (227 lb 4 oz) 07/17/2024 10:15 AM EDT Height 157.5 cm (5' 2 ) 07/17/2024 10:15 AM EDT Body Mass Index 41.56 07/17/2024 10:15 AM EDT Plan of Treatment Upcoming Encounters Date Type Department Care Team (Late st Contact Info) Description 10/16/2024 11:30 AM EDT Office Visit [facility] MED & PEDS [address] [place] [address] Netta Lang, AVIATION MECHANIC [address] [place] [address] Health Maintenance Due Date Last Done Comments CT Colonography 1978 Colonoscopy 1978 Colorectal Cancer Screening 1978 FIT DNA/Cologuard 1978 FIT 1978 FOBT 1978 Lipid Panel 1978 Sigmoidoscopy 1978 Alcohol/Substance Use Screening 1990 Hepatitis C Screening 1996 Hepatitis B Vaccines (1 of 3 - 19+ 3-dose series) 1997 Pap Smear 10/23/2024 10/23/2021 Mammogram 02/28/2025 02/29/2024 Family Planning (PISQ) 05/21/2025 05/21/2024 Depression Screening 07/17/2025 07/17/2024, 07/18/19 25 SDOH Screening 07/17/2025 07/17/2024 Tobacco Screening 07/17/2025 07/17/2024 Cervical Cancer Screening 10/23/2026 HPV/Cotest 10/23/2026 10/23/2021 [...] complete this topic HIV Screening Completed 11/27/2022 COVID-19 Vaccine Completed 05/19/2024, 12/2021, 08/05/2020, Additional history exists Influenza Vaccine Completed 05/19/2024, , 04/19/2018, Additional history exists HIB Vaccines Aged Out No longer eligi [...] Procedure Name Priority Date/Time Associated Diagnosis Comments BI MAMMOGRAM SCREENING TOMOSYNTHESIS BILATERAL Routine 02/29/2024 9:09 AM EST HIV ANTIBODY/ANTIGEN ([place] DPH) Routine 11/27/2022 12:07 PM EDT THINPREP IMAGING PAP AND HPV MRNA E6/E7, WITH CT/NG, TRICHOMONAS Routine 10/23/2021 2:55 PM EDT from Last 3 Months or Most Recently Relevant to Health Maintenance Results * BI Mammogram Screening Tomosynthesis Bilateral (02/29/2024 9:09 AM EST) Anatomical Region Laterality Modality Breast Bilateral Mammography 02/29/2024 9:09 AM EST Narrative 03/10/2024 10:40 AM EST ? [facility] ? [address] ?[place] [address] ? Mammography Report ? Signed ? Patient: Salinas,Melissa ?MR#: [id number] ? : 1980 ?Acct:[id number] ? Age/Sex: 43 / F ?ADM Date: //24 ? Loc: HO.MAMMO ? Attending Dr: David Cardozo MD ? Ordering Physician: David Cardozo MD ?Results: 1Negativ ?? e ? Date of Service: 02/28/24 ?Follow Up: 1 Year From Orig ?? inal Mammogram ? Procedure(s): MM tomosynthesis screening BI ?? Accession Number(s): [id number] ? cc: Netta Lang AVIATION MECHANIC; David Cardozo MD ? EXAMINATION: ?? MM [...] ? DD/ 8 ? TD/TT: 02/29/24923 ? Associate Professor Of Library Science: ? Procedure Note Reta, Gonzalez - 03/10/2024 [facility] [address] [place] [address] Mammography Report Signed Patient: Melissa SalinasMR#: [id number] : 1980Acct:[id number] Age/Sex: 43 / FADM Date: 02/29/24 Loc: HO.MAMMO Attending Dr: David Cardozo MD Ordering Physician: David Cardozo MDResults: 1Negativ e Date of Service: 02/29/24Follow Up: 1 Year From Orig inal Mammogram Procedure(s): MM tomosynthesis screening BI Accession Number(s): [id number] cc: Netta Lang; David Cardozo MD EXAMINATION: [...] OV> 03/10/24 1037 DD/ 8 TD/TT: 02/29/24923 Associate Professor Of Library Science: [facility] External Provider IMG BI PROCEDURES Final Result * HIV Ab/Ag ([place] [facility]) (11/27/2022 12:07 PM EDT) HIV AB/AG Nonreactive Nonreactive [facility] Comment:HIV-1 p24 Ag and/or HIV-1/HIV-2 Ab not detected.A test result that is nonreactive does not exclude thepossibility of exposure to or infection with HIV-1 and/orHIV-2. Nonreactive results in this assay for individualswith prior exposure to HIV-1 and/or HIV-2 may be due toantigen and antibody levels that are below the limit ofdetection of this assay.[employer] HIV Ag/Ab Combo assay result andsupplemental assay results should be interpreted inconjunction with the patient's clinical presentation,history and other laboratory results. If the results areinconsistent with clinical evidence, additional testing issuggested to confirm the result. 11/27/2022 12:0 7 PM EDT 11/27/2022 2:48 PM EDT Vanessa Fitzgerald AVIATION MECHANIC LAB BLOOD ORDERABLES Final Result [facility] [address] [place] [address] [phone] * THINPREP TIS PAP AND HPV mRNA E6/E7, CT/NG, TRICH (10/23/2021 2:55 PM EDT) Chlamydia trachomatis RNA, TMA, Urogenital NOT DETECTED NOT DETECTED [facility] Clinical Information: None given [facility] COMMENT SEE COMMENT [facility] Comment: The analytical performance characteristics of this assay, when used to test SurePath(TM) specimens have been determined by [facility]. The modifications have not been cleared or approved by the FDA. This assay has been validated pursuant to the CLIA regulations and is used for clinical purposes. ?? For additional information, please refer to https://education.WebPT/faq/GUU217 (This link is being provided for information/ [...] has been evaluated with computer assisted technology. [employer] Senior Network Architect: SEE COMMENT [facility] Comment: SXA, CT(ASCP) CT screening location: [address] ??[id number] HPV nRNA E6/E7 Not Detected Not Detected [employer] Comment: Methodology: Maintenance Associate-Mediated Amplification This assay detects E6/E7 viral messenger RNA (mRNA) from 14 high-risk HPV types (16,18,31,33,35,39,45,51,52,56,58,59,66,68). ? Cervical sources are required for HPV testing. If a vaginal source from a patient who has had a total hysterectomy with removal of cervix was ?? submitted, please contact the testing laboratory for alternative testing options. ?? For additional information, please refer to http://Tribe.WebPT/faq/QNS012c5 (This link if provided for information/ educational [...] of this assay have been determined by [facility]. The modifications have not been cleared or approved by the FDA. This assay has been validated pursuant to the CLIA regulations and is used for clinical purposes. ?? For additional information, please refer to http://Tribe.WebPT/ faq/Trichomonastma (This link is being provided for information/ educational purposes only.) ?? 10/23/2021 2:55 PM EDT us Marylu West NP LAB PATHOLOGY ORDERABLES Final Result [facility] [address] from Last 3 Months or Most Recently Relevant to Health Maintenance Insurance C3 Care Teams Adjunct English Instructor Relationship Specialty Start Date End Date Netta Lang FNP [address] [place] [phone] PCP - General Family Medicine 11/04/21
--- OUTSIDE RECORDS SUMMARY | 2024-07-17 12:58 | XMS_ITS | Encounter Summary ---
Author Organization [employer] Address [address] [facility] [address] [place] [address] Care Team Providers Care Respiratory Care Practitioner Name Role Phone Netta Lang Primary Care Provider [phone] Encounter Details Date Type Department Care Team ([facility] st Contact Info) Description 07/17/2024 10:15 AM EDT Office Visit [facility] & PEDS [address] [place] [address] Netta Lang FNP [address] [place] [address] Epigastric pain (Primary Dx); Healthcare maintenance Social History Tobacco Use Types Packs/Day Years [...] 22 07/17/2024 10:15 AM EDT Oxygen Saturation - - Inhaled Oxygen Concentration - - Weight 103 kg (227 lb 4 oz) 07/17/2024 10:15 AM EDT Height 157.5 cm (5' 2 ) 07/17/2024 10:15 AM EDT Body Mass Index 41.56 07/17/2024 10:15 AM EDT documented in this encounter Plan of Treatment Upcoming Encounters Date Type Department Care Team (Late st Contact Info) Description 10/16/2024 11:30 AM EDT Office Visit [facility] MED & PEDS [address] [place] [address] Netta Lang FNP [address] [place], [place] [phone] Scheduled Orders Name Type Priority Associated Diagnoses Orde r Schedule Helicobacter pylori??Antigen, EIA, Stool Lab Routine Epigastric pain Expected: 07/17/2024, Expires: 07/17/2025 Lipid Panel, Standard Lab Routine Healthcare maintenance Expected: 07/17/2024 (Approximate), Expires: 07/17/2025 Hemoglobin A1c Lab Routine Healthcare maintenance Expected: 07/17/2024 (Approximate), Expires: 07/17/2025 TSH with Reflex to Free T4 Lab Routine Healthcare maintenance Expected: 07/17/2024 (Approximate), Expires: 07/17/2025 Comprehensive Metabolic Panel Lab Routine Healthcare maintenance Expected: 07/17/2024 (Approximate), Expires: 07/17/2025 CBC auto differential Lab Routine Healthcare maintenance Expected: 07/17/2024, Expires: 07/17/2025 Chlamydia/N. Gonorrhoeae RNA, TMA, Urogenitial Microbiology Routine Healthcare maintenance Expected: 07/17/2024, Expires: 07/17/2025 Hepatitis C Viral RNA, Quantitative, Real-Time PCR Lab Routine Healthcare maintenance Expected: 07/17/2024 (Approximate), Expires: 07/17/2025 RPR (Monitor) with Reflex to??Titer Lab Routine Healthcare maintenance Expected: 07/17/2024 (Approximate), Expires: 07/17/2025 HIV-1/2 Antigen and Antibodies, Fourth Generation, with Reflexes Lab Routine Healthcare maintenance Expected: 07/17/2024 (Approximate), Expires: 07/17/2025 documented as of this encounter Visit Diagnoses Diagnosis Epigastric pain- Primary Abdominal pain, epigastric Healthcare maintenance documented in this encounter Additional Health Concerns Assessment Noted Time PHQ-9 Depression Total Score: 17 025 10:23 AM EDT documented as of this encounter Care Teams Respiratory Care Practitioner Relationship Specialty Start Date End Date Netta Lang FNP [address] [place] [id number] PCP - General Family Medicine 11/04/21 documented as of this encounter
[2024-07-17 14:50] LABS: MANUAL DIFF FLAG NO
[2024-07-17 14:52] LABS: Basophils Absolute Auto 0.1 X10*3/uL (0.0-0.2); Basophils Percent Auto 0.5 % (0-2); Eosinophils Absolute Auto 0.2 X10*3/uL (0.0-0.4); Eosinophils Percent Auto 1.6 % (0-4); Hematocrit 38.7 % (37.0-47.0); Hemoglobin 12.9 g/dl (12.0-16.0); Imm Gran Abs Auto 0.06 X10*3/uL (0.00-0.03); Imm Gran Pct Auto 0.6 % (0.0-0.4); Lymphocytes Absolute Auto 2.5 X10*3/uL (1.2-4.9); Mean Corpuscular HGB Conc 33.3 g/dl (31.0-35.0); Mean Corpuscular Hemoglobin 29.2 pg (27.0-33.0); Mean Corpuscular Volume 87.6 fL (80.0-98.0); Mean Platelet Volume 9.9 fL (9.4-12.3); Monocytes Absolute Auto 0.7 X10*3/uL (0.1-1.2); Monocytes Percent Auto 6.8 % (2-11); Neutrophils Absolute Auto 6.5 x10*3/uL (2.0-8.3); Neutrophils Percent Auto 65.5 % (45-73); Platelet Count 343 X10*3/uL (160-400); Red Blood Count 4.42 X10*6/uL (4.20-5.50); Red Cell Distribution Width 13.1 % (11.0-16.0); White Blood Count 9.9 X10*3/uL (4.8-10.8)
[2024-07-17 15:01] LABS: Estimated Average Glucose 108 mg/dL; Hemoglobin A1c % 5.4 % (<6.0); Total Hemoglobin (HGBA1C) 3335.1639 umol/L
[2024-07-17 15:20] LABS: Alanine Aminotransferase 17 U/L (0-31); Albumin Level 3.9 g/dL (3.5-5.0); Anion Gap 12 (12-20); Aspartate Amino Transferase 26 U/L (5-31); Bilirubin Total 0.3 mg/dL (0.0-1.0); Blood Urea Nitrogen 12 mg/dL (9-16); Calcium 9.2 mg/dL (8.4-10.2); Carbon Dioxide 27 mmol/L (22-29); Chloride 104 mmol/L (96-108); Cholesterol 197 mg/dL (<200); Estimated Glomerular Filt Rate > 60; Glucose Random 82 mg/dL (60-115); HDL Cholesterol 50 mg/dL (>40); LDL Cholesterol Calculated 125 mg/dL (<100); Potassium 3.3 mmol/L (3.3-5.1); Sodium 140 mmol/L (135-145); Total Protein 7.6 g/dL (6.5-8.0); Triglycerides 112 mg/dL (<150)
[2024-07-17 15:31] LABS: TSH reflex Free T4 1.02 uIU/mL (0.32-4.0)
[2024-07-17 16:07] LABS: Alkaline Phosphatase 118 U/L (39-117)
[2024-07-17 16:56] LABS: CT PCR NOT DETECTED (Not Detect.); NG PCR NOT DETECTED (Not Detect.)
[2024-07-18 04:06] LABS: HIV AB/AG Nonreactive (Nonreactive); HIV Num 1 0.09 S/CO (0.00-0.99)
[2024-07-18 11:58] LABS: RPR Rapid Plasma Reagin NON-REACTIVE (NON-REACTIVE)
[2024-07-18 14:18] LABS: HCV Log PCR <1.18 NOT DETECTED Log IU/mL (NOT DETECTED); HepC Viral Load <15 NOT DETECTED IU/mL (NOT DETECTED)
== END 2024-07-17 11:13 | disposition home or self-care (01) ==
LOC: HO.CHCLDS 11:12
PROVIDERS: Visit Provider Registered Nurse
DX: Z00.00 Encounter for general adult medical examination without abnormal findings (principal)
CPT/HCPCS: 36415; 80053; 80061; 83036; 84443; 85025; 86592; 87389; 87491; 87522; 87591

== ENCOUNTER 2024-12-18 13:47 | Outpatient (REF) | payer MEDICAID, SELFPAY ==
--- OUTSIDE RECORDS SUMMARY | 2024-12-18 10:00 | XMS_ITS | Encounter Summary ---
Author Organization [employer] Address [address] [facility] [address], [place] [address] Care Team Providers Care Event Coordinator Marketing And Sales Name Role Phone Netta Lang Primary Care Provider [phone] Reason for Referral * Consultation (Routine) - Pending Review Specialty Diagnoses / Procedures Referred By Jl bustillo Referred To Contact Bariatrics Diagnoses Obesity (BMI 30-39.9) Netta Lang FNP [address] [place] [address] Phone: tel: fax: Ben White MD [address] [place] [address] [address] [place] [address] Phone: tel: fax: Referral ID Status Reason Start Date Expiration Date Visits Requested Visits Authorized [id number] Pending Review Specialty Services Required 12/18/2024 12/18/2025 1 1 Reason for Visit * Reason Comments Follow-up Weight and labs conv ersation Encounter Details Date Type Department Care Team ([facility] st Contact Info) Description 12/18/2024 10:00 AM EDT Office Visit [facility] MED & PEDS [address] [place], [place] [phone] Netta Lang FNP [address] [place], [place] [phone] Obesity (BMI 30-39.9) (Primary Dx); Sore throat; Epigastric pain Social History Tobacco Use Types Packs/Day Years Used Date Smoking Tobacco: Never Smokeless Tobacco: Never Tobacco Cessation:Counseling Given: Not Answered Depression Answer Date Recorded Patient Health Questionnaire-9 Score 17 07/17/2024 Patient Health Questionnaire-9 Score 17 07/17/2024 Last PHQ-9: Questionnaire Data Not on file 0 07/17/2024 Housing Stability Answer Date Recorded What is your housing situation today? I have kina pili 07/17/[address] you li [...] Access Q2 Not on file 07/17/2024 Comments No Sex and Gender Information Value Date Recorded Sex Assigned at Female 01/12/2022 10:18 AM EDT Legal Sex Female 10:18 AM EDT Gender Identity Female 06/07/2023 7:20 AM EDT Sexual Orientation Choose not to disclose 2021 10:18 AM EDT documented as of this encounter Last Filed Vital Signs Vital Sign Reading Time Taken Comments Blood Pressure 108/82 12/18/2024 9:52 AM EDT Pulse 80 12/18/2024 9:52 AM EDT Temperature 36.5 C (97.7 F) 12/18/2024 9:52 AM EDT Respiratory Rate 16 12/18/2024 9:52 AM EDT Oxygen Saturation 97% 12/18/2024 9:52 AM EDT Inhaled Oxygen Concentration - - Weight 98.4 kg (217 lb) 12/18/2024 9:52 AM EDT Height 157.5 cm (5' 2 ) 12/18/2024 9:52 AM EDT Body Mass Index 39.69 12/18/2024 9:52 AM EDT documented in this encounter Miscellaneous Notes * Patient Education Note - JENNIFER Wade - 12/18/2024 2:39 PM EDT Images from the original note were not included. Educaci?n del paciente Tabla de contenidos Preventing High Cholesterol Prevenci?n del colesterol alto (Preventing High Cholesterol) Para kristie videos y toda cunningham educaci?n en l?janice, visite [email or web address] o escanee flory c?digo QR con cunningham tel?fono inteligente. El acceso a flory contenido expirar?? en un a?o. High Cholesterol: Lowering Your Risk Cholesterol is a waxy substance that your body needs to help build cells. It's similar to fat. It'smade by your liver. Your cholesterol may be too high if you have extra cholesterol in your bloodstream from the foods that you eat. You can lower your risk of high cholesterol by: Making changes to your diet. Making changes to your daily life. Taking medicines. How can high cholesterol affect me? Extra cholesterol and fatty substances combine to form plaque. This plaque may build up on the gracia of your blood vessels. This can cause the blood vessels to get more narrow and stiff. If plaque builds up, it can lead to: Blood flow being blocked. This can cause blood clots to form. A higher risk for heart attack and stroke. What can increase my risk for high cholesterol? You're more likely to have high cholesterol if: You eat foods that are high in saturated fat or cholesterol. Saturated fat is mostly found in foodsthat come from animals. You're overweight. You don't get enough exercise. You smoke, vape, or use nicotine or tobacco. Someone else in your family has high cholesterol. You drink too much alcohol. What actions can I take to lower my risk? Nutrition Eat less saturated fat. Avoid trans fats (partially hydrogenated oils). These may be found in: ? Margarine. ? Baked goods. ? Fried foods. ? Snacks bought in packages. Eat more foods that are high in fiber. Avoid foods and drinks with added sugars. Eat more fruits, vegetables, and whole grains. Choose healthy sources of protein. These include: ? Fish and poultry. ? Lean cuts of red meat. ? Beans and peas. ? Lentils and nuts. Choose healthy sources of fat. These include: ? Nuts. ? Vegetable oils, such as olive oil. ? Fish that have healthy fats, such as omega-3 fatty acids. These fish include mackerel and salmon. Lifestyle Lose weight if you're overweight. ? Staying at a healthy body mass index (BMI) can help prevent or control high cholesterol. ? Ask your health care provider to help you come up with a diet and exercise plan to lose weight safely. Do not smoke, vape, or use nicotine or tobacco. Alcohol use Do not drink alcohol if: ? Your provider tells you not to drink. ? You're , may be , or plan to become . If you drink alcohol: ? Limit how much you have to: ? 0?1 drink a day if you're female. ? 0?2 drinks a day if you're male. ? Know how much alcohol is in your drink. In the [place] one drink is one 12 oz bottle of beer (355 mL), one 5 oz glass of wine (148 mL), or one 1? oz glass of hard liquor (44 mL). Activity Exercise as told. Each week, do at least 150 minutes of exercise that takes a medium level of effort or 75 minutes ofexercise that takes a lot of effort. This kind of exercise: ? Makes your heart beat faster. But you should still be able to talk while doing it. ? Can be done in short sessions a few times a day or longer sessions a few times a week. For example, on 5 days each week, you could walk fast or ride your bike 3 times a day for 10 minutes each time. Medicines Take your medicines only as told. You may be given medicines to help lower how much cholesterol your liver makes. You may need these if: ? Changes to your diet and daily life don't lower your cholesterol enough. ? You have high cholesterol and other risk factors for heart disease or stroke. General information Talk with your provider about how to lower your risk for high cholesterol. Manage other conditions that you have, such as diabetes or high blood pressure. Keep all follow-up visits. You'll have blood tests to check your cholesterol levels at set times. Where to find more information To learn more, go to: [place] Heart Association at heart.org. 1. Click Search and type what is cholesterol. Find the link you need. National Heart, Lung, and Blood [place] (NHLBI) at nhlbi.nih.gov. 1. Click the magnifying glass and type lowering cholesterol with TLC. Find the link you need. This information is not intended to replace advice given to you by your health care provider. Make sure you discuss any questions you have with your health care provider. Document Released: 2016-03-15 Document Updated: 2024-09-25 Document Reviewed: 2024-09-25 [employer] Patient Education ? 2024 [employer]. Colesterol alto: c?mo reducir el riesgo High Cholesterol: Lowering Your Risk El colesterol es vahid sustancia cerosa que el organismo necesita para generar c?lulas. Es similar a la grasa. La produce el h?gado. El colesterol puede ser demasiado alto si hay un exceso de flory en el torrente sangu?shola debido a los alimentos que consume. Estas son formas de reducir el riesgo de colesterol alto: Realizar cambios en la dieta. Hacer cambios en cunningham bessy diaria. Dagoberto medicamentos. ?C?mo me puede afectar el colesterol alto? El exceso de colesterol y las sustancias grasas se combinan para formar placa. Esta placa puede acumularse en las wooten de los vasos sangu?neos. Kiana puede ocasionar que los vasos sangu?neos se vuelvan m?s estrechos y r?gidos. Si la placa se acumula, puede provocar lo siguiente: Bloqueo del flujo sangu?shola. Kiana puede causar la formaci?n de co?gulos de mitch. Mayor riesgo de sufrir un infarto de miocardio y un accidente cerebrovascular. ?Qu?? factores pueden aumentar mi riesgo de colesterol alto? Hay m?s probabilidades de que tenga el colesterol alto si: Consume alimentos con alto contenido de grasa saturada o colesterol. Las grasas saturadas se encuentran, sobre todo, en los alimentos de origen animal. Tiene sobrepeso. No hace suficiente ejercicio. Fuma, vapea o consume nicotina o tabaco. Un familiar tiene el colesterol alto. Mary alcohol en exceso. ?Qu?? puedo hacer para reducir mi riesgo? Alimentaci?n Coma menos grasas saturadas. Evite las grasas trans (aceites parcialmente hidrogenados). Pueden encontrarse en estos productos: ? Margarina. ? Panificados. ? Comidas fritas. ? Refrigerios preempaquetados. Coma m?s alimentos ricos en fibra. Evite los alimentos y las bebidas con az?car agregada. Consuma m?s frutas, verduras y cereales integrales. Elija martin saludables de prote?nona. Estos incluyen los siguientes: ? Pescado y aves de snow. ? Chiang magros de carne aaliyah. ? Frijoles y guisantes. ? Lentejas y nilda secos. Elija martin saludables de grasas. Estos incluyen los siguientes: ? Nilda secos. ? Aceites vegetales, maycol el aceite de clayton. ? Pescados que contengan grasas saludables, maycol los ?cidos grasos omega?3. Estos pescados incluyenla caballa y el salm?n. Estilo de bessy Baje de peso si tiene sobrepeso. ? Mantenerse en un ?ndice de masa corporal (IMC) saludable puede ayudar a prevenir o controlar el colesterol alto. ? P?oskar al m?dico que lo ayude a elaborar un plan de dieta y ejercicio para bajar de peso de manera lee. No fume, vapee ni consuma nicotina o tabaco. Consumo de alcohol No tu alcohol si: ? El m?dico le indica no hacerlo. ? Est?? embarazada, puede estar embarazada o planea quedar embarazada. Si mary alcohol, neftali lo siguiente: ? Limite la cantidad que mary a lo siguiente: ? Entre 0 y 1 medida al d?a si es angeles. ? Entre 0 y 2 medidas al d?a si es hombre. ? Sepa cu?nta cantidad de alcohol tienen las bebidas que tio. En los [place], vahid medida esuna botella de cerveza de 12 OZ (355 ML), un vaso de vino de 5 OZ (148 ML) o un vaso de vahid bebida alcoh?lica de alejandro graduaci?n de 1? OZ (44 ML). Actividad Neftali ejercicio maycol se le indic?. Cada semana, neftali al menos 150 minutos de ejercicio que requiera un nivel medio de esfuerzo o 75 minutos de ejercicio que requiera mucho esfuerzo. Flory tipo de ejercicio: ? Hace que el coraz?n mao m?s r?pido. Sin embargo, debe poder hablar mientras lo hace. ? Puede hacerse en sesiones cortas varias veces al d?a o en sesiones m?s largas varias veces por semana. Por ejemplo, en 5 d?as por semana, podr?a caminar r?pido o andar en bicicleta 3 veces por d?a osmel 10 minutos cada vez. Medicamentos Glenvil los medicamentos solo maycol se le indic?. Es posible que le receten medicamentos para ayudar a reducir la cantidad de colesterol que produce el h?gado. Es posible que los necesite en estos casos: ? Los cambios en la dieta y la bessy diaria no reducen el colesterol lo suficiente. ? Tiene colesterol alto y presenta otros factores de riesgo de sufrir enfermedades card?acas o accidentes cerebrovasculares. Informaci?n general Hable con el m?dico sobre c?mo reducir el riesgo de tener colesterol alto. Controle otras afecciones que pueda tener, maycol diabetes o presi?n arterial alejnadro. Asista a todas las visitas de seguimiento. Se le madelyn?n an?lisis de mitch para comprobar los niveles de colesterol en momentos determinados. D?nde obtener m?s informaci?n Para obtener m?s informaci?n, visite los siguientes sitios web: The [place] Heart Association (Asociaci?n Est[place]oun[place]ense del Coraz?n) en heart.org. 1. Neftali clic en ?Search? (Buscar) y escriba ?what is cholesterol? (qu?? es el colesterol). Busque el enlace que necesita. National Heart, Lung, and Blood [place] (Instituto Nacional del Coraz?n, los Pulmones y la Mitch, NHLBI) en nhlbi.nih.gov. 1. Neftali clic en la lupa y escriba ?lowering cholesterol with TLC? (c?mo reducir el colesterol con TLC). Busque el enlace que necesita. Esta informaci?n no tiene maycol fin reemplazar el consejo del m?dico. Aseg?rese de hacerle al m?dicocualquier pregunta que tenga. Document Released: 2016-03-15 Document Updated: 2024-10-16 Document Reviewed: 2024-10-16 Elsevier Patient Education ? 2024 [employer] * Assessment & Plan Note - JENNIFER Wade - 12/18/2024 11:07 AM EDT Associated Problem(s): Obesity (BMI 30-39.9) Referred to bariatric surgery 05/19/2024 Continue with lifestyle interventions Referral to [facility] Weight Management clinic on 12/18/24 for consideration of pharmacotherapy * Assessment & Plan Note - JENNIFER Wade - 12/18/2024 11:05 AM EDT Associated Problem(s): Epigastric pain - GERD vs. gastritis vs. PUD vs. H. pylori vs other - Plan: Check H. Pylori. May start omeprazole following stool sample. Reviewed lifestyle interventions to decrease symptoms including avoid triggering foods (such as coffee, chocolate, fatty foods), eating 2-3 hours before lying down, and weight loss. - Follow-up precautions reviewed documented in this encounter Plan of Treatment Upcoming Encounters Date Type Department Care Team (Late st Contact Info) Description 04/09/2025 10:00 AM EST Office Visit [facility] OPTOM[facility]RY [address] [place], [place] [phone] Marylu Buitrago, OD [address] [place] [address] Scheduled Orders Name Type Priority Associated Diagnoses Orde r Schedule Respiratory Viral Panel PCR Lab Routine Sore throat Expected: 12/18/2024 (Approximate), Expires: 12/18/2025 Scheduled Referrals Name Type Priority Associated Diagnoses Order Schedule Referral to Pediatric Weight Management Outpatient Referral Routine Obesity (BMI 30-39.9) Expected: 12/18/2024 (Approximate), Expires: 12/18/2025 documented as of this encounter Procedures Procedure Name Priority Date/Time Associated Diagnosis Comments POC CANALES ID NOW STREP A Routine 12/18/2024 3:14 PM EDT Sore throat documented in this encounter Results * POCT ID NOW Rapid Strep A manually resulted (12/18/2024 3:14 PM EDT) Rapid Strep A Screen Negative Negative, None Detected QC Media Lot # Comment:[id number] Lot# Expiration Date Comment:02/11/2025 Swab 12/18/2024 3:14 PM EDT Netta RODRIGUEZ POINT OF CARE TEST ENTER/EDIT ORDERABLES Final Result documented in this encounter Visit Diagnoses Diagnosis Obesity (BMI 30-39.9)- Primary Sore throat Acute pharyngitis Epigastric pain Abdominal pain, epigastric documented in this encounter Additional Health Concerns Assessment Noted Time PHQ-9 Depression Total Score: 17 025 10:23 AM EDT documented as of this encounter Care Teams Event Coordinator Marketing And Sales Relationship Specialty Start Date End Date Netta Lang FNP [address] [place] [phone] PCP - General Family Medicine 11/04/21 documented as of this encounter
[2024-12-18 16:06] LABS: Chlamydia pneumoniae PCR Not Detected (Not Detect.); Coronavirus 229E PCR Not Detected (Not Detect.); Coronavirus HKU1 PCR Not Detected (Not Detect.); Coronavirus NL63 PCR Not Detected (Not Detect.); Coronavirus OC43 PCR Not Detected (Not Detect.); RSV PCR Not Detected (Not Detect.); Rhino/Enterovirus PCR Not Detected (Not Detect.)
[2024-12-18 16:11] LABS: Influenza A H1 PCR Not Detected (Not Detect.); Influenza A H1-2009 PCR Not Detected (Not Detect.); Influenza A H3 PCR Not Detected (Not Detect.); SARS-CoV-2 PCR Not Detected (Not Detect.)
--- OUTSIDE RECORDS SUMMARY | 2024-12-18 16:13 | XMS_ITS | Clinical Summary ---
Author Organization [facility] Address [address] [place] [address] Care Team Providers Care Mine Administrator Supervisor Name Role Phone Unavailable Primary Care Provider [...] 77 10/28/2020 11:05 PM EDT Temperature 37 C (98.6 F) 10/28/2020 11:05 PM EDT Respiratory Rate 18 [...] Pap Smear (Ages 21-65) 11/23/1999 Mammogram 2018 Colonoscopy 11/23/2023 Influenza Vaccine 10/13/2024 COVID-19 Vaccine ( - 2023-2 5 season) 2024 HPV Vaccines (No Doses Required) Completed Pneumococcal Vaccine: Pediat elias (0-5 Years) and At-Risk Patients (6 to 49 Years) Aged Out No longer eligible b ased on patient's age to complete this topic Insurance [facility]
--- OUTSIDE RECORDS SUMMARY | 2024-12-18 16:14 | XMS_ITS | Encounter Summary ---
Author Organization [employer] Address [address] [facility] [address], [place] [address] Care Team Providers Care Fishing Floats Assembler Name Role Phone Netta Lang Primary Care Provider Reason for Visit * Reason Onset Date Comments Chart Prep 12/15/2024 Encounter Details Date Type Department Care Team ([facility] st Contact Info) Description 12/15/2024 Telephone [facility] MED & PEDS [address] [place], [place] [phone] Netta Lang FNP [address] [place] [address] Chart Prep Social History Tobacco Use Types [...] encounter Miscellaneous Notes * Telephone Encounter - Lizet Almendarez MA - 12/15/2024 9:31 AM EDT Chart Prep Labs: done Images: done Referrals: complete Vaccines due: Flu and Hep B Screenings: colonoscopy and LMP Overdue care gaps: SBIRT, PHQ-9, Oral health screening, Disability screen, and Tobacco documented in this encounter Plan of Treatment Upcoming Encounters Date Type Department Care Team (Late st Contact Info) Description 04/09/2025 10:00 AM EST Office Visit [facility] OPTOMETRY [address] [place] [address] Marylu Buitrago, OD [address] [place] [address] documented as of this encounter Visit Diagnoses Not on filedocumented in this encounter Additional Health Concerns Assessment Noted Time PHQ-9 Depression Total Score: 17 025 10:23 AM EDT documented as of this encounter Care Teams Fishing Floats Assembler Relationship Specialty Start Date End Date Netta Lang FNP [address] [place] [address] PCP - General Family Medicine 11/04/21 documented as of this encounter
--- OUTSIDE RECORDS SUMMARY | 2024-12-18 16:14 | XMS_ITS | Clinical Summary ---
Author Organization [employer] Address [address] [facility] [address] [place] [address] Care Team Providers Care Therapeutic Recreation Assistant Name Role Phone Netta Lang JENNIFER Primary Care Provider [phone] Allergies Active Allergy Reactions Criticality Noted Date Comments Morphine 10/28/2020 Other reaction(s): Other (See Comments) Heart races Medications hydrOXYzine HCl (Atarax) 25 MG tablet TAKE 1 TABLET BY MOUTH UP TO THREE TIMES DAILY NEEDED FOR ANXIETY. MAY CAUSE DROWSINESS 10/28/19 22 Active mirtazapine (Remeron) 30 MG tablet Take 30 mg by mouth at bedtime. 03/26/19 23 Active risperiDONE (RisperDAL) 1 MG [...] of mixing. 238 g 04/14/19 25 Active tiZANidine (Zanaflex) 2 MG tablet Take 1-2 tablets (2-4 mg) by mouth if needed at bedtime for muscle spasms. 30 tablet 1 05/22/19 25 026 Active gabapentin (Neurontin) 100 MG capsule Take 2 capsules (200 mg) by mouth 3 times daily. 180 capsule 12/19/19 25 Active Omeprazole 20 MG tablet delayed-releas e Take 1 tablet (20 mg) by mouth before breakfast. 90 tablet 1 12/19/19 25 Active gabapentin (Neurontin) 100 MG capsule Take 200 mg by mouth 3 times daily. 03/26/19 23 025 Discontinued(Du plicate order (will not trigger notification to Pharmacy)) pantoprazole (Protonix) 20 MG EC tabletIndicati ons:Epigastric pain Take 1 tablet (20 mg) by mouth before breakfast. Do not crush, chew, or split. 90 tablet 1 07/18/19 25 025 Discontinued(Th erapy completed) Active Problems Problem Noted Date Diagnosed Date Epigastric pain 12/18/2024 Assessment & Plan (12/18/2024 11:05 AM EDT): - GERD vs. gastritis vs. PUD vs. H. pylori vs other - Plan: Check H. Pylori. May start omeprazole following stool sample. Reviewed lifestyle interventions to decrease symptoms including avoid triggering foods (such as coffee, chocolate, fatty foods), eating 2-3 hours before lying down, and weight loss. - Follow-up precautions reviewed Obesity (BMI 30-39.9) 12/18/2024 Assessment & Plan (12/18/2024 11:07 AM EDT): Referred to bariatric surgery 05/19/2024 Continue with lifestyle interventions Referral to [facility] Weight Management clinic on 12/18/24 for consideration of pharmacotherapy BMI 40.0-44.9, adult ([facility]) 07/18/2024 Assessment & Plan (07/18/2024 10:46 AM EDT): Referred to bariatric surgery 05/19/2024 Interested in discussion of pharmacotherapy options for weight management. Plan: Continue lifestyle interventions. Check lab work. Schedule follow-up to discuss labs and treatment options. Uterine myoma 05/21/2024 Overview (05/21/2024): Following with [facility]-Dr. Cardozo for complex ovarian cyst and uterine myoma. November 2023: Pelvic US demonstrated-endometrial thickness 2 mm. Uterine fibroid 1x0.8 x 0.9 cm. Another fibroid measuring 3x2.4x3.3cm. Right ovary with cyst. No cyst in left ovary. Consult in December with DENTURE FINISHER. Uterine myoma: plan to repeat pelvic US periodically. EMB completed January 2024 at [facility].Path: Secretory endometrium; negative for atypia, hyperplasia or [...] NILM, HPV Neg 10/23/21 Colonoscopy: referral to [facility] 06/07/23 Optometry: referral to [facility] placed 06/10/23 Mammo: 02/29/24 BIRADS 1 Assessment & Plan (06/10/2023 4:42 PM EDT): Lab work, including asymptomatic STI screening, ordered below Hemorrhagic cyst of ovary 10/25/2021 Overview (09/03/2023): Eval at [facility] ED in 2020 w/ abd/pelvis CT that demonstrated complex cyst of left ovary, likely hemorrhagic in nature. [facility] DENTURE FINISHER Visit - Dr. Escobedo for CT results 03/05/23: Abdomen US pelvis complete ordered by [facility] provider. Possible hemorrhagic cyst of the left ovary. Recommended repeat pelvic US in 6-12 weeks to assess for resolution. Repeat pelvic/TUVS placed 04/29/23 Referral to DENTURE FINISHER placed 06/07/23 08/31/23: [facility] ED Eval, diagnosed with suspected ruptured ovarian cyst Assessment & Plan (09/03/2023 12:20 PM EDT): Scheduled 09/08/23 at [facility] for follow up. Headache 02/13/2015 Mixed anxiety and depressive disorder 01/26/2013 Assessment & Plan (06/10/2023 4:41 PM EDT): -Followed by psych team: -Ele therapist - clinic located in [place]. Visit frequency every other week -Psych provider: [...] Encounters Date Type Department Care Team Description 12/18/2024 10:00 AM EDT Office Visit [facility] [address] [place] [address] Netta Lang FNP Obesity (BMI 30-39.9) (Primary Dx); Sore throat; Epigastric pain 12/18/2024 Orders Only [facility] [address] [place] [address] Netta Lang FNP 12/18/2024 Travel 12/15/2024 Telephone [facility] [address] [place] [address] Netta Lang FNP Chart Prep 10/16/2024 Telephone [facility] [address] [place] [address] Netta Lang FNP No Show from Last 3 Months Immunizations Immunization Administration Dates Next Due Influenza injectable quadriv [...] Q2 Not on file 07/17/2024 Comments No Intention Date Recorded No desire to become (finding) 0 05/19/2024 Sex and Gender Information Value Date Recorded [...] Mass Index 39.69 12/18/2024 9:52 AM EDT Plan of Treatment Upcoming Encounters Date Type Department Care Team (Late st Contact Info) Description 04/09/2025 10:00 AM EST Office Visit [facility] [address] [place] [address] Marylu Buitrago, OD [address] [place] [address] Health Maintenance Due Date Last Done Comments CT Colonography 1978 Colonoscopy 1978 Colorectal Cancer Screening 1978 FIT DNA/Cologuard 1978 FIT 1978 FOBT 1978 Sigmoidoscopy 1978 Hepatitis B Vaccines (1 of 3 - 19+ 3-dose series) 1997 Influenza Vaccine (#1) 2024 , 02/28/2021, 04/19/2018, Additional history exists Depression Monitoring 01/17/2025 07/17/2024, 025 Mammogram 02/28/2025 02/29/2024 Family Planning (PISQ) 05/21/2025 05/21/2024 SDOH Screening 07/17/2025 07/17/2024 Alcohol/Substance Use Screening 12/18/2025 12/18/2024 Disability Screening 12/18/2025 12/18/2024 Tobacco Screening 12/18/2025 12/18/2024 Cervical Cancer Screening 10/23/2026 HPV/Cotest 10/23/2026 10/23/2021 Pap Smear 10/23/2026 10/23/2021 Zoster Vaccines (1 of 2) 2028 Lipid Panel 07/17/2029 07/17/2024 DTaP/Tdap/Td Vaccines (3 - Td or Tdap) 02/28/2031 02/28/2021, 06/11/2009 RSV Patients and Patients Aged 60 years or older (1 - 1-dose 75+ series) 2053 Pneumococcal Vaccine: Pediatrics (0 to 5 Years) and At-Risk Patients (6 to 49) Years Aged Out 03/20/2011 No longer eligible based on patient's age to complete this topic COVID-19 Vaccine Completed 05/19/2024, 12/2021, 08/05/2020, Additional history exists HIV Screening Completed 07/17/2024, 11/27/2022 Hepatitis C Screening Completed 07/17/2024 HIB Vaccines Aged Out No longer eligi [...] Routine 12/18/2024 3:14 PM EDT Sore throat RESPIRATORY VIRAL PANEL PCR Routine 12/18/2024 11:53 AM EDT HEPATITIS C VIRAL RNA, QUANTITATIVE, REAL-TIME PCR Routine 07/17/2024 11:15 AM EDT Healthcare maintenance HIV 1/2 ANTIGEN/ANTIBODY, FOURTH GENERATION W/RFL Routine 07/17/2024 11:15 AM EDT Healthcare maintenance LIPID PANEL, STANDARD Routine 07/17/2024 11:15 AM EDT Healthcare maintenance BI MAMMOGRAM SCREENING TOMOSYNTHESIS BILATERAL Routine 02/29/2024 9:09 AM EST THINPREP IMAGING PAP AND HPV MRNA E6/E7, WITH CT/NG, TRICHOMONAS Routine 10/23/2021 2:55 PM EDT from Last 3 Months or Most Recently Relevant to Health Maintenance Results * POCT ID NOW Rapid Strep A manually resulted (12/18/2024 3:14 PM EDT) Rapid Strep A Screen Negative Negative, None Detected QC Media Lot # Comment:[id number] Lot# Expiration Date Comment:02/11/2025 Swab 12/18/2024 3:14 PM EDT Netta Lang FARM CONTRACTOR POINT OF CARE TEST ENTER/EDIT ORDERABLES Final Result * Respiratory Viral Panel PCR (12/18/2024 11:53 AM EDT) Adenovirus PCR Not Detected Not Detect. [facility] Bordetella pertussis PCR Not Detected Not Detect. [facility] Comment:Interpret results wi th caution. If B. pertussis isspecifically suspected, additional testing using analternate method is recommended. Bordetella parapertussis PCR Not Detected Not Detect. [facility] Chlamydia pneumoniae PCR Not Detected Not Detect. [facility] Coronavirus 229E PCR Not Detected Not Detect. [facility] Coronavirus HKU1 PCR Not Detected Not Detect. [facility] Coronavirus NL63 PCR Not Detected Not Detect. [facility] Coronavirus OC43 PCR Not Detected Not Detect. [facility] SARS-CoV-2 PCR Not Detected Not Detect. [facility] Comment:SARS-CoV-2 not detec srinivasan by real-time RT-PCR.Note: If clinical suspicion for Sars-CoV-2 is high, continueto maintain precautions and consider repeat testing.Test results should be interpreted in the context ofclinical findings and other laboratory data.Rare polymorphisms exist that could lead to false-negativeor false-positive results. If results do not match theclinical findings, additional testing should be considered.Results reported to [facility].This test has been authorized by the FDA under the EmergencyUse Authorization (EUA) for use by authorized laboratories. Influenza A PCR Not Detected Not Detect. [facility] Influenza A Subtype H1 Not Detected Not Detect. [facility] Influenza A H1-2009 PCR Not Detected Not Detect. [facility] Influenza A Subtype H3 Not Detected Not Detect. [facility] Influenza B PCR Not Detected Not Detect. [facility] Human metapneumovirus PCR Not Detected Not Detect. [facility] Rhino/Enterovirus PCR Not Detected Not Detect. [facility] Mycoplasma pneumoniae PCR Not Detected Not Detect. [facility] Parainfluenza 1 PCR Not Detected Not Detect. [facility] Parainfluenza 2 PCR Not Detected Not Detect. [facility] Parainfluenza 3 PCR Not Detected Not Detect. [facility] Parainfluenza 4 PCR Not Detected Not Detect. [facility] RSV PCR Not Detected Not Detect. [facility] Resp Panel NA Note See Note H [facility] Comment:All results must be correlated with clinical findings.Negative results should not be used as the sole basis fordiagnosis, treatment, or other management decisions.A negative result does not exclude the possibility of viralor bacterial infection. Negative results may occur from thepresence of sequence variants in the region targeted by theassay, the presence of inhibitors, an infection caused by anorganism not detected by the panel, or lower respiratorytract infections that are not detected by a nasopharyngealswab specimen. Test results may also be affected byconcurrent antiviral/antibacterial therapy or levels oforganism in the specimen that are below the limit ofdetection for this test.This assay is performed by Multiplexed PCR, utilizing [employer] Film Array. 12/18/2024 11:5 3 AM EDT 12/18/2024 2:29 PM EDT Netta Lang [facility] BLOOD ORDERABLES Final Res ult [facility] [address] [place] [address] [phone] * Hepatitis C Viral RNA, Quantitative, Real-Time PCR (07/17/2024 11:15 AM EDT) Hepatitis C Viral Load <15 NOT DETECTED NOT DETECTED IU/mL [facility] HCV Log PCR <1.18 NOT DETECTED NOT DETECTED Log IU/mL [facility] Comment:For additional infor jennifer, please refer tohttp://education.[employer]/faq/BPM51a3(This link is being provided for informational/educational purposes only.)THIS TEST WAS PERFORMED AT:[facility] [place] [phone] REYES MD Blood 07/17/2024 11:1 5 AM EDT 07/17/2024 2:46 PM EDT Netta Lang [facility] BLOOD ORDERABLES Final Res ult Performing Organization Address [facility] Co de Phone Number [facility] [address] [place] [phone] * HIV-1/2 Antigen and Antibodies, Fourth Generation, with Reflexes (07/17/2024 11:15 AM EDT) HIV AB/AG Nonreactive Nonreactive [facility] Comment:HIV-1 p24 Ag and/or HIV-1/HIV-2 Ab not detected.A test result that is nonreactive does not exclude thepossibility of exposure to or infection with HIV-1 and/orHIV-2. Nonreactive results in this assay for individualswith prior exposure to HIV-1 and/or HIV-2 may be due toantigen and antibody levels that are below the limit ofdetection of this assay.The [employer] HIV Ag/Ab Combo assay result andsupplemental assay results should be interpreted inconjunction with the patient's clinical presentation,history and other laboratory results. If the results areinconsistent with clinical evidence, additional testing issuggested to confirm the result. Blood Venous blood specimen / Unknown 07/17/2024 11:15 AM EDT 07/17/2024 2:46 PM EDT Netta Lang [facility] BLOOD ORDERABLES Final Res ult Performing Organization Address [facility]/ZIP Co de Phone Number [facility] [address] [place] [address] [phone] * (ABNORMAL) Lipid Panel, Standard (07/17/2024 11:15 AM EDT) Triglycerides 112 <150 mg/dL [facility] Comment:Desirable Triglyceri de: less than 150 mg/dLBorderline High Triglyceride 150-199 mg/dLHigh Triglyceride: 200-499 mg/dLVery High Triglyceride: greater than or equal to 5OO mg/dL Cholesterol 197 <200 mg/dL [facility] Comment:Desirable Cholestero l: less than 200 mg/dLBorderline High Cholesterol: 200-239 mg/dLHigh Cholesterol: greater than 239 mg/dL LDL Cholesterol Calculated 125(H) <100 mg/dL [facility] Comment:Desirable LDL: less than 100 mg/dLNear Optimal/Above Optimal LDL: 110- 129 mg/dLBorderline High LDL: 130-159 mg/dLHigh LDL: 160-189 mg/dLVery High LDL: greater than or equal to 190 mg/dL HDL Cholesterol 50 >40 mg/dL [facility] Comment:Desirable HDL: great er than 40 mg/dL Note: This HDL assay may give artificially low results in patients with liver disease. Blood Venous blood specimen / Unknown 07/17/2024 11:15 AM EDT 07/17/2024 2:46 PM EDT us Netta Lang FARM CONTRACT[employer] LAB BLOOD ORDERABLES Final Res ult [facility] [address] [place] [phone] * BI Mammogram Screening Tomosynthesis Bilateral (02/29/2024 9:09 AM EST) Anatomical Region Laterality Modality Breast Bilateral Mammography 02/29/2024 9:09 AM EST Narrative 03/10/2024 10:40 AM EST [facility] [address] [place] [address] Mammography Report Signed Patient: Melissa Salinas MR#: [id number] : 1980 Acct:[id number] Age/Sex: 43 / F ADM Date: 02/29/24 Loc: HO.MAMMO Attending Dr: David Cardozo MD Ordering Physician: David Cardozo MD Results: 1Negativ e Date of Service: 02/29/24 Follow Up: 1 Year From Orig inal Mammogram Procedure(s): MM tomosynthesis screening BI Accession Number(s): [id number] cc: Netta Lang; David Cardozo MD EXAMINATION: [...] OV> 03/10/24 1037 DD/ 8 TD/TT: 02/29/24923 Title I Director: Procedure Note Donotuseinterpreter, Image - 03/10/[facility] [address] [place] [address] Mammography Report Signed Patient: Melissa Salinas#: [id number] : 1980Acct:[id number] Age/Sex: 43 / FADM Date: 02/29/24 Loc: HO.MAMMO Attending Dr: David Cardozo MD Ordering Physician: David Cardozo MDResults: 1Negativ e Date of Service: 02/29/24Follow Up: 1 Year From Orig inal Mammogram Procedure(s): MM tomosynthesis screening BI Accession Number(s): [id number] cc: Netta Lang; David Cardozo MD EXAMINATION: [...] OV> 03/10/24 1037 DD/ 8 TD/TT: 02/29/24923 Title I Director: [facility] External Provider IMG BI PROCEDURES Final Result * THINPREP TIS PAP AND HPV mRNA E6/E7, CT/NG, TRICH (10/23/2021 2:55 PM EDT) Chlamydia trachomatis RNA, TMA, Urogenital NOT DETECTED NOT DETECTED [facility] Clinical Information: None given [facility] COMMENT SEE COMMENT [facility] Comment: The analytical performance characteristics of this assay, when used to test SurePath(TM) specimens have been determined by [employer]. The modifications have not been cleared or approved by the FDA. This assay has been validated pursuant to the CLIA regulations and is used for clinical purposes. For additional information, please refer to https://education.[employer]/faq/BCP448 (This link is being provided for information/ educational purposes only.) COMMENT SEE COMMENT [facility] Comment: EXPLANATORY NOTE: The Pap is a screening test for cervical cancer. It is not a diagnostic test and is subject to false negative and false positive results. It is most reliable when a satisfactory sample, regularly obtained, is submitted with relevant clinical findings and history, and when the Pap result is evaluated along with historic and current clinical information. COMMENT: This Pap test has been evaluated with computer assisted technology. [facility] Internet Marketing Director: SEE COMMENT [facility] Comment: SXA, CT(ASCP) CT screening location: [place] [address] HPV nRNA E6/E7 Not Detected Not Detected [facility] Comment: Methodology: Bailiff-Mediated Amplification This assay detects E6/E7 viral messenger RNA (mRNA) from 14 high-risk HPV types (16,18,31,33,35,39,45,51,52,56,58,59,66,68). Cervical sources are required for HPV testing. If a vaginal source from a patient who has had a total hysterectomy with removal of cervix was submitted, please contact the testing laboratory for alternative testing options. For additional information, please refer to http://S[employer]/faq/HUT065w7 (This link if provided for information/ educational purposes only.) Interpretation/Re sult: Negative for intraepithelial lesion or malignancy. [facility] LMP: NONE GIVEN [facility] Neisseria gonorrhoeae RNA, TMA, Urogenital NOT DETECTED NOT DETECTED [facility] Prev. BX: NONE GIVEN [facility] Prev. PAP: NONE GIVEN [facility] SOURCE: None given [facility] Statement Of Adequacy: SEE COMMENT [facility] Comment: Satisfactory for evaluation. Endocervical/transformation zone component present. Age and/or menstrual status not provided Trichomonas vaginalis, QL, TMA, PAP Vial NOT DETECTED NOT DETECTED [facility] Comment: The analytical performance characteristics of this assay have been determined by [employer]. The modifications have not been cleared or approved by the FDA. This assay has been validated pursuant to the CLIA regulations and is used for clinical purposes. For additional information, please refer to http://education.[employer]/ faq/Trichomonastma (This link is being provided for information/ educational purposes only.) 10/23/2021 2:55 PM EDT Marylu West FINANCIAL ADMINISTRATION OFFICER LAB PATHOLOGY ORDERABLES Final Result [facility] [address] from Last 3 Months or Most Recently Relevant to Health Maintenance Insurance C3 Care Teams Therapeutic Recreation Assistant Relationship Specialty Start Date End Date Netta Lang FNP [address] [place] [phone] PCP - General Family Medicine 11/04/21
--- OUTSIDE RECORDS SUMMARY | 2024-12-18 16:14 | XMS_ITS | Encounter Summary ---
Author Organization [employer] Address [address] [facility] [address] [place] [address] Care Team Providers Care Bow Maker Machine Tender Name Role Phone Netta Lang DRUM PULLER Primary Care Provider Encounter Details Date Type Department Care Team (Latest Contact Info) Description 12/18/2024 Travel Social History Tobacco Use Types Packs/Day [...] Description 04/09/2025 10:00 AM EST Office Visit [facility] [address] [place], [place] [phone] Marylu Buitrago, OD [address] [place] [address] documented as of this encounter Visit Diagnoses Not on filedocumented in this encounter Additional Health Concerns Assessment Noted Time PHQ-9 Depression Total Score: 17 025 10:23 AM EDT documented as of this encounter Care Teams Bow Maker Machine Tender Relationship Specialty Start Date End Date Netta Lang FNP [address] [place] [address] PCP - General Family Medicine 11/04/21 documented as of this encounter
--- OUTSIDE RECORDS SUMMARY | 2024-12-18 16:14 | XMS_ITS | Clinical Summary ---
Author Organization [address] [facility] Address [address] [place] [address] Phone Care Team Providers Care Plate Setter Name Role Phone Dina Rizo MD Primary Care Provider Social History Tobacco Use Types Packs/Day Years Used Date Smoking Tobacco: Never Assessed Comments Unknown Sex and Gender Information Value Date Recorded Sex Assigned at Not on file Legal Sex Female 4:35 AM EST Gender Identity Not on file Sexual Orientation Not on file Plan of Treatment Health Maintenance Due Date Last Done Comments Breast Cancer Screening 1980 Colorectal Cancer Screening: Colonoscopy 1978 DTaP,Tdap,and Td Vaccines (1 - Tdap) 1997 Hepatitis B Vaccines (1 of 3 - 19+ 3-dose series) 1997 Cervical Cancer Screening: P ap Smear 11/23/1999 Depression Screening 03/15/2024 HIV Screening 08/25/2024 Hepatitis C Screening 08/25/2024 Social Influencers of Health Screening 08/25/2024 COVID-19 Vaccine ( - 2023-2 5 season) 2024 Influenza Vaccine (#1) 2024 RSV Immunization Adult Patie nts (1 - 1-dose 75+ series) 2053 HIB Vaccines Aged Out No longer eligi [...] 5 Years) and At-Risk Patients (6 to 49 Years) Aged Out No longer eligible b ased on patient's age to complete this topic RSV Immunization Patients Un donald 20 months Aged Out No longer eligible b ased on patient's age to complete this topic Varicella Vaccines Aged Out No longer eligible based on patient's age to complete this topic Insurance MEDICAID - [place] Care Teams Plate Setter Relationship Specialty Start Date End Date Dina Rizo MD [address] [place] [address] [phone] PCP - General Internal Medicine 08/25/24
== END 2024-12-18 13:48 | disposition home or self-care (01) ==
LOC: HO.CHCLNP 13:47
PROVIDERS: PCP Registered Nurse; Visit Provider Registered Nurse
DX: J02.9 Acute pharyngitis, unspecified (principal)
CPT/HCPCS: 87633

== ENCOUNTER 2025-02-15 12:41 | Outpatient (REF) | payer MEDICAID, SELFPAY ==
--- NOTE | ~2025-02-15 | US_ITS ---
CLINICAL HISTORY: D25.9 - Leiomyoma of uterus, unspecified US PELVIS TRANSABDOMINAL AND TRANSVAGINAL Comparison: US/SR - US PELVIC AND TRANSVAGINAL - 11/17/23 11:20 EDT Findings: Transabdominal scanning performed for overall anatomy. Transvaginal scanning performed for additional detail. Uterus measures 12.1 cm in length. Right-sided subserosal intramural fibroid measures 1.7 x 1.3 x 1.7 cm, previously 1.0 x 0.8 x 0.9 cm. Left-sided subserosal intramural fibroid measures 3.2 x 2.8 x 3.0 cm, previously 3.0 x 2.4 x 3.3 cm. Endometrium 1.2 cm. Right ovary was seen transabdominally only measuring 2.7 x 2.0 x 2.4 cm. Left ovary was better seen transabdominally measuring 4.9 x 3.5 x 4.5 cm. There is a 3.2 x 2.9 x 3.1 cm cystic lesion. Normal color Doppler of both ovaries. No free fluid. IMPRESSION: 1. Redemonstration of 2 uterine fibroids, the right-sided fibroid increased in size since the prior study. 2. 3.2 cm left ovarian cyst. 3. Bilateral ovarian flow present. 4. Endometrial stripe thickness is within normal range for age. 5. No free fluid. This document has been electronically signed by: Stephanie Foote DO on 02/15/2025 15:22:10
== END 2025-02-15 12:42 | disposition home or self-care (01) ==
LOC: HO.US 12:41
PROVIDERS: PCP Internal Medicine; Visit Provider Obstetrics & Gynecology
DX: D25.9 Leiomyoma of uterus, unspecified (principal)
CPT/HCPCS: 76830; 76856

== ENCOUNTER → 2025-02-15 12:42 | Outpatient (BNV) | payer MEDICAID, SELFPAY | PROVIDERS: PCP Internal Medicine; Visit Provider Radiology Diagnostic Radiology | DX: D25.2 Subserosal leiomyoma of uterus (principal); N83.292 Other ovarian cyst, left side; N85.00 Endometrial hyperplasia, unspecified | CPT/HCPCS: 76830; 76856 ==

== ENCOUNTER 2025-03-12 13:07 | Outpatient (AMB) | payer MEDICAID, SELFPAY ==
--- NOTE | 2025-03-12 13:07 | MHC.OFFVIS ---
Intake Visit Reasons: U/s follow up Double Cut Off Saw Operator Required: Yes Double Cut Off Saw Operator Language: Neck Band Operator Services: Double Cut Off Saw Operator Present (in person) Double Cut Off Saw Operator Name: Trixie DOBBINS Information Interpreted: non-clinical & clinical Allergies No Known Allergies Allergy (Verified 03/12/25 13:08) HPI Comments Details: The patient scheduled a telehealth visit for follow-up ultrasound regarding uterine myoma seen on previous pelvic ultrasound. The patient is complaining of left-sided pelvic pain on and off with no associated symptoms. Pelvic ultrasound done recently showed the following: Uterus measures 12.1 cm in length. Right-sided subserosal intramural fibroid measures 1.7 x 1.3 x 1.7 cm, previously 1.0 x 0.8 x 0.9 cm. Left-sided subserosal intramural fibroid measures 3.2 x 2.8 x 3.0 cm, previously 3.0 x 2.4 x 3.3 cm. Endometrium 1.2 cm. Right ovary was seen transabdominally only measuring 2.7 x 2.0 x 2.4 cm. Left ovary was better seen transabdominally measuring 4.9 x 3.5 x 4.5 cm. There is a 3.2 x 2.9 x 3.1 cm cystic lesion. Normal color Doppler of both ovaries. No free fluid. IMPRESSION: 1. Redemonstration of 2 uterine fibroids, the right-sided fibroid increased in size since the prior study. 2. 3.2 cm left ovarian cyst. 3. Bilateral ovarian flow present. 4. Endometrial stripe thickness is within normal range for age. 5. No free fluid. [facility] Medical History No known health problems Surgical History Hx of tubal ligation Hx of cholecystectomy Family History Father Diabetes HTN (hypertension) Prostate cancer Mother Diabetes HTN (hypertension) Social History Household Members: None Housing: Apartment Alcohol intake: never Patient Tobacco Use Status: Never used Tobacco Current occupational status: unemployed Sexual orientation: Straight/Heterosexual Gender identity: Female Review of Systems Const All systems reviewed & are unremarkable except as noted in HPI and below Reports as per HPI and Reports no additional complaints GI Reports no additional complaints Reports no additional complaints Telehealth Telehealth Telehealth Platform: [employer] Location of provider rendering services: practice address Location of patient: address on file Patient Identification confirmed using: Name, : Yes Telehealth method: video Patient verbally consented to treatment: Yes Patient verbally consented to billing insurance company: Yes Patient informed of any privacy concerns related to visit: Yes Minutes spent on Phone/Video with Pt.: 8 Assessment & Plan Assessment & Plan (1) Uterine myoma: Comment: With pelvic Code(s): D25.9 - Leiomyoma of uterus, unspecified Category: Medical Plan: Instructions given the patient to the take a test today and call back with a positive results in addition instructions given the patient to go to emergency room to be evaluated noé. Discussed with the patient the findings on pelvic ultrasound, recommended it to schedule a follow-up appointment for an evaluation within 1-2 weeks. All questions answered, the patient verbalized understanding I spent a total of 20 minutes reviewing the chart, talking to the patient via video and documenting in the medical record. Coding Level of Care Code Tele Est Pt Level 3 (21162) Diagnoses Uterine myoma D25.9
--- OUTSIDE RECORDS SUMMARY | 2025-03-12 15:08 | XMS_ITS | Clinical Summary ---
Author Organization [facility] Address [address] [place] [address] Care Team Providers Care Customer Support Associate Name Role Phone Unavailable Primary Care Provider [...] Colonoscopy 11/23/2023 Influenza Vaccine 10/13/2024 COVID-19 Vaccine (1 - 2024-2 6 season) 2024 Pneumococcal Vaccine: Pediat elias (0-5 Years) and At-Risk Patients (6 to 49 Years) Aged Out No longer eligible b ased on patient's age to complete this topic Insurance [facility] As Seen on TV
--- OUTSIDE RECORDS SUMMARY | 2025-03-12 15:08 | XMS_ITS | Clinical Summary ---
Author Organization [employer] Address [address] [facility] [address] [place] [address] Care Team Providers Care Acute Care Occupational Therapist Name Role Phone Netta Lang JENNIFER Primary Care Provider [phone] Allergies Active Allergy Reactions Criticality Noted Date Comments Morphine 10/28/2020 Other reaction(s): Other (See Comments) Heart races Medications hydrOXYzine HCl (Atarax) 25 MG tablet TAKE 1 TABLET BY MOUTH UP TO THREE TIMES DAILY NEEDED FOR ANXIETY. MAY CAUSE DROWSINESS 2 Active mirtazapine (Remeron) 30 MG tablet Take 30 mg by mouth at bedtime. 3 Active risperiDONE (RisperDAL) 1 MG tablet [...] 30 tablet 1 5 05/22/19 26 Active gabapentin (Neurontin) 100 MG capsule Take 2 capsules (200 mg) by mouth 3 times daily. 180 capsule 5 Active Omeprazole 20 MG tablet delayed-release Take 1 tablet (20 mg) by mouth before breakfast. 90 tablet 1 5 Active Active Problems Problem Noted Date Diagnosed [...] 05/19/2024 Continue with lifestyle interventions Referral to [facility] Weight Management clinic on 12/18/24 for consideration of pharmacotherapy BMI 40.0-44.9, adult ([facility]) 07/18/2024 Assessment & Plan (07/18/2024 10:46 AM EDT): Referred to bariatric surgery 05/19/2024 Interested in discussion of pharmacotherapy options for weight management. Plan: Continue lifestyle interventions. Check lab work. Schedule follow-up to discuss labs and treatment options. Uterine myoma 05/21/2024 Overview (05/21/2024): Following with [facility] OUT OF TOWN COLLECTION CLERK-Dr. Cardozo for complex ovarian cyst and uterine myoma. November 2023: Pelvic US demonstrated-endometrial thickness 2 mm. Uterine fibroid 1x0.8 x 0.9 cm. Another fibroid measuring 3x2.4x3.3cm. Right ovary with cyst. No cyst in left ovary. Consult in December with OUT OF TOWN COLLECTION CLERK. Uterine myoma: plan to repeat pelvic US periodically. EMB completed January 2024 at [facility] OUT OF TOWN COLLECTION CLERK.Path: Secretory endometrium; negative for atypia, hyperplasia or [...] NILM, HPV Neg 10/23/21 Colonoscopy: referral to [facility] 06/07/23 Optometry: referral to [facility] placed 06/10/23 Mammo: 02/29/24 BIRADS 1 Assessment & Plan (06/10/2023 4:42 PM EDT): Lab work, including asymptomatic STI screening, ordered below Hemorrhagic cyst of ovary 10/25/2021 Overview (09/03/2023): Eval at [facility] ED in 2020 w/ abd/pelvis CT that demonstrated complex cyst of left ovary, likely hemorrhagic in nature. [facility] OUT OF TOWN COLLECTION CLERK Visit - Dr. Escobedo for CT results 03/05/23: Abdomen US pelvis complete ordered by [facility] provider. Possible hemorrhagic cyst of the left ovary. Recommended repeat pelvic US in 6-12 weeks to assess for resolution. Repeat pelvic/TUVS placed 04/29/23 Referral to OUT OF TOWN COLLECTION CLERK placed 06/07/23 08/31/23: [facility] ED Eval, diagnosed with suspected ruptured ovarian cyst Assessment & Plan (09/03/2023 12:20 PM EDT): Scheduled 09/08/23 at [facility] for follow up. Headache 02/13/2015 Mixed anxiety and depressive disorder 01/26/2013 Assessment & Plan (06/10/2023 4:41 PM EDT): -Followed by psych team: -Ele therapist - clinic located in [place]. Visit frequency every other week -Psych provider: [...] Encounters Date Type Department Care Team Description 02/15/2025 Orders Only [facility] External Provider, [facility] 12/21/2024 Results Follow-Up [facility] [address] [place] [address] Netta Lang FNP Respiratory Viral Panel PCR 12/18/2024 10:00 AM EDT Office Visit [facility] [address] [place] [address] Netta Lang FNP Obesity (BMI 30-39.9) (Primary Dx); Sore throat; Epigastric pain 12/18/2024 Orders Only [facility] [address] [place] [address] Netta Lang FNP 12/18/2024 Travel 12/15/2024 Telephone [facility] [address] [place] [address] Netta Lang FNP Chart Prep from Last 3 Months Immunizations Immunization Administration [...] Description 04/09/2025 10:00 AM EST Office Visit [facility] OPTOMETRY [address] [place] [address] Marylu Buitrago, OD [address] [place] [address] Health Maintenance Due Date Last Done Comments CT Colonography 1980 Colonoscopy 1978 Colorectal Cancer Screening 1980 FIT DNA/Cologuard 1978 FIT 1980 FOBT 1980 Sigmoidoscopy 1980 Hepatitis B Vaccines (1 of 3 - 19+ 3-dose series) 1997 COVID-19 Vaccine ( season) 2024 05/19/2024, 03/24/2021, 08/05/2020, Additional history exists Influenza Vaccine (#1) 2024 , 02/28/2021, 04/19/2018, [...] to complete this topic HIV Screening Completed 07/17/2024, 11/27/2022 Hepatitis C [...] Procedure Name Priority Date/Time Associated Diagnosis Comments US PELVIS TRANSVAGINAL Routine 3:22 PM EST POC CANALES ID NOW STREP A Routine [...] Recently Relevant to Health Maintenance Results * US Pelvis Transvaginal (02/15/2025 3:22 PM EST) Anatomical Region Laterality Modality Pelvis Ultrasound 02/15/2025 3:22 PM EST Narrative 02/15/2025 3:23 PM EST [address] [address] Ultrasound Report Signed Patient: Melissa Salinas MR#: [id number] : 1980 Acct:[id number] Age/Sex: 44 / F ADM Date: 02/15/25 Loc: HO.US Attending Dr: David Cardozo MD Ordering Physician: David Cardozo MD Date of Service: 02/15/25 Procedure(s): US pelvic and transvaginal Accession Number(s): [id number] cc: Monique Honeycutt MD; David Cardozo MD Reason for Exam: D25.9 - Leiomyoma of uterus, unspecified CLINICAL HISTORY: D25.9 - Leiomyoma of uterus, unspecified US PELVIS TRANSABDOMINAL AND TRANSVAGINAL Comparison: US/SR - US PELVIC AND TRANSVAGINAL - 11/17/23 11:20 EDT Findings: Transabdominal scanning performed for overall anatomy. Transvaginal scanning performed for additional detail. Uterus measures 12.1 cm in length. Right-sided subserosal intramural fibroid measures 1.7 x 1.3 x 1.7 cm, previously 1.0 x 0.8 x 0.9 cm. Left-sided subserosal intramural fibroid measures 3.2 x 2.8 x 3.0 cm, previously 3.0 x 2.4 x 3.3 cm. Endometrium 1.2 cm. Right ovary was seen transabdominally only measuring 2.7 x 2.0 x 2.4 cm. Left ovary was better seen transabdominally measuring 4.9 x 3.5 x 4.5 cm. There is a 3.2 x 2.9 x 3.1 cm cystic lesion. Normal color Doppler of both ovaries. No free fluid. IMPRESSION: 1. Redemonstration of 2 uterine fibroids, the right-sided fibroid increased in size since the prior study. 2. 3.2 cm left ovarian cyst. 3. Bilateral ovarian flow present. 4. Endometrial stripe thickness is within normal range for age. 5. No free fluid. This document has been electronically signed by: Stephanie Foote DO on 02/15/2025 15:22:10 Dictated By: Stephanie Foote MD Signed By: <Electronically signed by Stephanie Foote MD in OV> 02/15/25 1523 DD/ 1522 TD/TT: 02/15/25 1522 Welt Pocket Machine Operator: Procedure Note Donotuseinterpreter, Image - 02/15/2025 [place] [address] Ultrasound Report Signed Patient: Melissa SalinasMR#: [id number] : 1980Acct:[id number] Age/Sex: 44 / FADM Date: 02/15/25 Loc: HO.US Attending Dr: David Cardozo MD Ordering Physician: David Cardozo MD Date of Service: 02/15/25 Procedure(s): US pelvic and transvaginal Accession Number(s): [id number] cc: Monique Honeycutt MD; David Cardozo MD Reason for Exam: D25.9 - Leiomyoma of uterus, unspecified CLINICAL HISTORY: D25.9 - Leiomyoma of uterus, unspecified US PELVIS TRANSABDOMINAL AND TRANSVAGINAL Comparison: US/SR - US PELVIC AND TRANSVAGINAL - 11/17/23 11:20 EDT Findings: Transabdominal scanning performed for overall anatomy. Transvaginal scanning performed for additional detail. Uterus measures 12.1 cm in length. Right-sided subserosal intramural fibroid measures 1.7 x 1.3 x 1.7 cm, previously 1.0 x 0.8 x 0.9 cm. Left-sided subserosal intramural fibroid measures 3.2 x 2.8 x 3.0 cm, previously 3.0 x 2.4 x 3.3 cm. Endometrium 1.2 cm. Right ovary was seen transabdominally only measuring 2.7 x 2.0 x 2.4 cm. Left ovary was better seen transabdominally measuring 4.9 x 3.5 x 4.5 cm. There is a 3.2 x 2.9 x 3.1 cm cystic lesion. Normal color Doppler of both ovaries. No free fluid. IMPRESSION: 1. Redemonstration of 2 uterine fibroids, the right-sided fibroid increased in size since the prior study. 2. 3.2 cm left ovarian cyst. 3. Bilateral ovarian flow present. 4. Endometrial stripe thickness is within normal range for age. 5. No free fluid. This document has been electronically signed by: Stephanie Foote DO on 02/15/2025 15:22:10 Dictated By: Stephanie Foote MD Signed By: <Electronically signed by Stephanie Foote MD in OV> 02/15/25 1523 DD/ 152 TD/TT: 02/15/25 152 Welt Pocket Machine Operator: [facility] External Provider IMG US PROCEDURES Edited Result - Final * POCT ID NOW Rapid Strep A manually resulted (12/18/2024 3:14 PM EDT) Pathologist [facility] Rapid Strep A Screen Negative Negative, None Detected QC Media Lot # Comment:[id number] Lot# Expiration Date Comment:02/11/2025 Swab 12/18/2024 3:14 PM EDT Result [facility] Netta Lang CAR FERRY CAPTAIN POINT OF CARE TEST ENTER/EDIT ORDERABLES Final Result * Respiratory Viral Panel PCR (12/18/2024 11:53 AM EDT) [facility] Adenovirus PCR Not Detected Not Detect. [facility] Bordetella pertussis PCR Not Detected Not Detect. [facility] Comment:Interpret results wi th caution. If B. pertussis isspecifically suspected, additional testing using analternate method is recommended. Bordetella parapertussis PCR Not Detected Not Detect. [facility] Chlamydia pneumoniae PCR Not Detected Not Detect. [facility] Coronavirus 229E PCR Not Detected Not Detect. [facility] Coronavirus HKU1 PCR Not Detected Not Detect. [facility] Coronavirus NL63 PCR Not Detected Not Detect. [facility] Coronavirus OC43 PCR Not Detected Not Detect. [facility] SARS-CoV-2 PCR Not Detected Not Detect. [facility] Comment:SARS-CoV-2 not detec srinivasan by real-time RT-PCR.Note: If clinical suspicion for Sars-CoV-2 is high, continueto maintain precautions and consider repeat testing.Test results should be interpreted in the context ofclinical findings and other laboratory data.Rare polymorphisms exist that could lead to false-negativeor false-positive results. If results do not match theclinical findings, additional testing should be considered.Results reported to [facility].This test has been authorized by the FDA under the EmergencyUse Authorization (EUA) for use by authorized laboratories. Influenza A PCR Not Detected Not Detect. [facility] Influenza A Subtype H1 Not Detected Not Detect. [facility] Influenza A H1-2009 PCR Not Detected Not Detect. [facility] Influenza A Subtype H3 Not Detected Not Detect. [facility] Influenza B PCR Not Detected Not Detect. [facility] Human metapneumovirus PCR Not Detected Not Detect. [facility] Rhino/Enterovirus PCR Not Detected Not Detect. [facility] Mycoplasma pneumoniae PCR Not Detected Not Detect. [facility] Parainfluenza 1 PCR Not Detected Not Detect. [facility] Parainfluenza 2 PCR Not Detected Not Detect. [facility] Parainfluenza 3 PCR Not Detected Not Detect. [facility] Parainfluenza 4 PCR Not Detected Not Detect. [facility] RSV PCR Not Detected Not Detect. [facility] Resp Panel NA Note See Note H [facility] Comment:All results must be correlated with [...] assay is performed by Multiplexed PCR, utilizing PV Nano Cell Array. 12/18/2024 11:5 3 AM EDT 12/18/2024 2:29 PM EDT us Netta Lang CAR [employer]ERR[employer] LAB BLOOD ORDERABLES Final Res ult [facility] [address] [place] [address] [phone] * Hepatitis C Viral RNA, Quantitative, Real-Time PCR (07/17/2024 11:15 AM EDT) Pathologist [facility] Hepatitis C Viral Load <15 NOT DETECTED NOT DETECTED IU/mL [facility] HCV Log PCR <1.18 NOT DETECTED NOT DETECTED Log IU/mL [facility] Comment:For additional infor jennifer, please refer tohttp://education.Ad[employer] Google/faq/KXJ64d7(This link is being provided for informational/educational purposes only.)THIS TEST WAS PERFORMED AT:[facility] [place] [phone] REYES MD Blood 07/17/2024 11:1 5 AM EDT 07/17/2024 2:46 PM EDT Netta Lang [facility] BLOOD ORDERABLES Final Res ult [facility] [address] [place] [address] [phone] * HIV-1/2 Antigen and Antibodies, Fourth Generation, with Reflexes (07/17/2024 11:15 AM EDT) [facility] HIV AB/AG Nonreactive Nonreactive [facility] Comment:HIV-1 p24 Ag and/or HIV-1/HIV-2 Ab not detected.A test result that is nonreactive does not exclude thepossibility of exposure to or infection with HIV-1 and/orHIV-2. Nonreactive results in this assay for individualswith prior exposure to HIV-1 and/or HIV-2 may be due toantigen and antibody levels that are below the limit ofdetection of this assay.The STEERadsniAuto I.D. HIV Ag/Ab Combo assay result andsupplemental assay results should be interpreted inconjunction with the patient's clinical presentation,history and other laboratory results. If the results areinconsistent with clinical evidence, additional testing issuggested to confirm the result. Blood Venous blood specimen / Unknown 07/17/2024 11:15 AM EDT 07/17/2024 2:46 PM EDT Netta Lang [facility] BLOOD ORDERABLES Final Res ult Performing Organization Address [place] Co de Phone Number [facility] [address] [place] [address] [phone] * (ABNORMAL) Lipid Panel, Standard (07/17/2024 11:15 AM EDT) Triglycerides 112 <150 mg/dL [facility] Comment:Desirable Triglyceri de: less than 150 mg/dLBorderline High Triglyceride 150-199 mg/dLHigh Triglyceride: 200-499 mg/dLVery High Triglyceride: greater than or equal to 5OO mg/dL Cholesterol 197 <200 mg/dL [facility] Comment:Desirable Cholestero l: less than 200 mg/dLBorderline High Cholesterol: 200-239 mg/dLHigh Cholesterol: greater than 239 mg/dL LDL Cholesterol Calculated 125(H) <100 mg/dL [facility] Comment:Desirable LDL: less than 100 mg/dLNear Optimal/Above Optimal LDL: 110- 129 mg/dLBorderline High LDL: 130-159 mg/dLHigh LDL: 160-189 mg/dLVery High LDL: greater than or equal to 190 mg/dL HDL Cholesterol 50 >40 mg/dL [facility] Comment:Desirable HDL: great er than 40 mg/dL Note: This HDL assay may give artificially low results in patients with liver disease. Blood Venous blood specimen / Unknown 07/17/2024 11:15 AM EDT 07/17/2024 2:46 PM EDT Netta Lnag [facility] BLOOD ORDERABLES Final Res ult Performing Organization Address City/[facility]/ZIP Co de Phone Number [facility] [address] [place] [address] [phone] * BI Mammogram Screening Tomosynthesis Bilateral (02/29/2024 9:09 AM EST) Anatomical Region Laterality Modality Breast Bilateral Mammography 02/29/2024 9:09 AM EST Narrative 03/10/2024 10:40 AM EST [address] [place] [address] Mammography Report Signed Patient: Melissa Salinas MR#: [id number] : 1980 Acct:[id number] Age/Sex: 43 / F ADM Date: 02/29/24 Loc: HO.MAMMO Attending Dr: David Cardozo MD Ordering Physician: David Cardozo MD Results: 1Negativ e Date of Service: 02/29/24 Follow Up: 1 Year From Orig inal Mammogram Procedure(s): MM tomosynthesis screening BI Accession Number(s): [id number] cc: Netta Lang; David Cardozo MD EXAMINATION: [...] OV> 03/10/24 1037 DD/ 8 TD/TT: 02/29/24923 Welt Pocket Machine Operator: Procedure Note Donotuseinterpreter, Image - 03/10/[address] [place] [address] Mammography Report Signed Patient: Melissa SalinasMR#: [id number] : 1980Acct:[id number] Age/Sex: 43 / FADM Date: 02/29/24 Loc: HO.MAMMO Attending Dr: David Cardozo MD Ordering Physician: David Cardozo MDResults: 1Negativ e Date of Service: 02/29/24Follow Up: 1 Year From Orig inal Mammogram Procedure(s): MM tomosynthesis screening BI Accession Number(s): [id number] cc: Netta Lang; David Cardozo MD EXAMINATION: [...] by: Jacquie Millan DO 03/10/2024 10:37 AM [facility] Dictated By: Jacquie Millan DO Signed By: <Electronically signed by Jacquie Millan DO in OV> 03/10/24 1037 DD/ 8 TD/TT: 02/29/24923 Welt Pocket Machine Operator: [facility] External Provider IMG BI PROCEDURES Final Result * THINPREP TIS PAP AND HPV mRNA E6/E7, CT/NG, TRICH (10/23/2021 2:55 PM EDT) Chlamydia trachomatis RNA, TMA, Urogenital NOT DETECTED NOT DETECTED [facility] Clinical Information: None given [facility] COMMENT SEE COMMENT [facility] Comment: The analytical performance characteristics of this assay, when used to test SurePath(TM) specimens have been determined by [facility]. The modifications have not been cleared or approved by the FDA. This assay has been validated pursuant to the CLIA regulations and is used for clinical purposes. For additional information, please refer to [email or web address].Adometry By Google/faq/QUE906 (This link is being provided for information/ [...] along with historic and current clinical information. Comment: This Pap test has been evaluated with computer assisted technology. [facility] Sky Frequency Iron Bender: SEE COMMENT [facility] Comment: SXA, CT(ASCP) CT screening location: [place] [address] HPV nRNA E6/E7 Not Detected Not Detected [facility] Comment: Methodology: Heel Boom Operator-Mediated Amplification This assay detects E6/E7 viral messenger RNA (mRNA) from 14 high-risk HPV types (16,18,31,33,35,39,45,51,52,56,58,59,66,68). Cervical sources are required for HPV testing. If a vaginal source from a patient who has had a total hysterectomy with removal of cervix was submitted, please contact the testing laboratory for alternative testing options. For additional information, please refer to http://education.Adometry By Google/faq/JHA714h4 (This link if provided for information/ educational purposes only.) Interpretation/Re sult: Negative for intraepithelial lesion or malignancy. [facility] LMP: NONE GIVEN [facility] Neisseria gonorrhoeae RNA, TMA, Urogenital NOT DETECTED NOT DETECTED [facility] Prev. BX: NONE GIVEN [facility] Prev. PAP: NONE [facility]IVEN [facility] SOURCE: None given [facility] Statement Of Adequacy: SEE COMMENT [facility] Comment: Satisfactory for evaluation. Endocervical/transformation zone component present. Age and/or menstrual status not provided Trichomonas vaginalis, QL, TMA, PAP Vial NOT DETECTED NOT DETECTED [facility] Comment: The analytical performance characteristics of this assay have been determined by [facility]. The modifications have not been cleared or approved by the FDA. This assay has been validated pursuant to the CLIA regulations and is used for clinical purposes. For additional information, please refer to http://education.Adometry By Google/ faq/Trichomonastma (This link is being provided for information/ educational purposes only.) 10/23/2021 2:55 PM EDT us Marylu West NP LAB PATHOLOGY ORDERABLES Final Result [facility] [address] from Last 3 Months or Most Recently Relevant to Health Maintenance Insurance [place] [address] C3 Care Teams Acute Care Occupational Therapist Relationship Specialty Start Date End Date Netta Lang FNP [address] [place] [address] PCP - General Family Medicine 11/04/21
--- OUTSIDE RECORDS SUMMARY | 2025-03-12 15:08 | XMS_ITS | Clinical Summary ---
Author Organization [address] [facility] Address [address] [place] [address] Phone Care Team Providers Care Lastex Operator Name Role Phone Dina Rizo MD Primary Care Provider [phone] Social History Tobacco Use Types Packs/Day Years [...] [employer] of Health Screening 08/25/2024 COVID-19 Vaccine (1 - 2024-2 6 season) 2024 Influenza Vaccine (#1) 2024 RSV [...] topic Insurance MEDICAID - [place] Care Teams Lastex Operator Relationship Specialty Start Date End Date Dina Rizo MD [address] [place] [address] [phone] PCP - General Internal Medicine 08/25/24
== END 2025-03-12 13:58 | disposition home or self-care (01) ==
LOC: HO.HWS 13:07
PROVIDERS: PCP Internal Medicine; Visit Provider Obstetrics & Gynecology
DX: D25.9 Leiomyoma of uterus, unspecified (principal)
CPT/HCPCS: 99213